=== PATIENT | female | born 1945 | race Hispanic/Latino ===

== ENCOUNTER 2017-10-07 16:50 | Inpatient (IN) | payer MEDICARE, BC ==
[2017-10-07 17:10] VITALS: BMI 24.9
--- NOTE | 2017-10-07 17:10 | ED PDOC ---
Arrival/HPI - General Chief Complaint: Weakness/Neurological Deficit Time Seen by Provider: 10/07/17 16:59 Historian: Patient - Critical Care Critical Care Minutes: 60 minutes - History of Present Illness Narrative History of Present Illness (Text): 10/07/17 17:08 A 72 year old female whose past medical history includes hypertension, SVT, hypercholesterolemia, hypothyroidism, DVT, and headaches, presents to the emergency department via EMS for a complaint of generalized weakness. Patient denies headache. Monitor shows sinus tachycardia at 156 beats per minute. Patient is alert and states that she is "thirsty". The patient denies headache, dizziness, sore throat, cough, chest pain, shortness of breath, dyspnea on exertion, abdominal pain, nausea, vomiting, diarrhea, neck/back pain, urinary/ bowel changes or any other complaint. PMD: Dr. Darnell Time/Duration: Prior to Arrival Symptom Onset: Sudden Symptom Course: Unchanged Activities at Onset: Rest, Light Context: Home Past Medical History - Provider Review Nursing Documentation Reviewed: Yes - Infectious Disease Hx of Infectious Diseases: None - Tetanus Immunization Tetanus Immunization: Up to Date - Cardiac Hx Cardiac Disorders: Yes Hx Hypertension: Yes - Pulmonary Hx Respiratory Disorders: Yes Hx Asthma: Yes - Neurological Hx Neurological Disorder: Yes (headaches) - HEENT Hx HEENT Disorder: Yes (WEARS RX GLASSES for reading) Hx Cataracts: Yes (left eye sx 01/31/16) - Renal Hx Renal Disorder: Yes Hx Pyelonephritis: (pt denies pyelonephritis) - Endocrine/Metabolic Hx Endocrine Disorders: Yes Hx Hypothyroidism: Yes - Hematological/Oncological Hx Blood Disorders: Yes (pt denies iron deficiency) Hx Anemia: (pt denies anemia) Hx Cancer: (pt denies any hx of cancer) Other/Comment: pt on ivig infusions with dr blandon once a month, iv immuniglobulin - Integumentary Hx Dermatological Disorder: No - Musculoskeletal/Rheumatological Hx Musculoskeletal Disorders: Yes Hx Falls: Yes (2 yrs ago slipped pelvic rim fx) - Gastrointestinal Hx Gastrointestinal Disorders: Yes (GERD,GASTRITIS,BOWEL OBSTRUCTION,H/O C DIFF. APPENDECTOMY,COLITIS) - Genitourinary/Gynecological Hx Genitourinary Disorders: No (PYELONEPHRITIS) Hx Reproductive Disorders: No - Psychiatric Hx Psychophysiologic Disorder: No Hx Substance Use: No Other/Comment: pt denies drinking - Surgical History Hx Appendectomy: Yes Hx Orthopedic Surgery: Yes (3 back surg) Other/Comment: PICC Line in and out - Anesthesia Hx Anesthesia: Yes Hx Anesthesia Reactions: No Hx Malignant Hyperthermia: No - Suicidal Assessment Feels Threatened In Home Enviroment: No Family/Social History - Physician Review Nursing Documentation Reviewed: Yes Family/Social History: No Known Family HX Smoking Status: Never Smoked Hx Alcohol Use: No Hx Substance Use: No Hx Substance Use Treatment: No Allergies/Home Meds Allergies/Adverse Reactions: Allergies ciprofloxacin Allergy (Verified 10/07/17 17:07) RASH esomeprazole Allergy (Verified 10/07/17 17:07) RASH tetracycline Allergy (Verified 10/07/17 17:07) RASH Home Medications: Home Meds Medication Instructions Recorded Confirmed Atenolol [Tenormin] 25 mg PO DAILY 05/25/15 07/16/17 Gabapentin [Neurontin] 600 mg PO BID 05/25/15 07/16/17 Levothyroxine Sodium [Synthroid] 25 mcg PO DAILY 05/25/15 07/16/17 Ondansetron [Zofran Odt] 4 mg PO Q8H PRN 05/25/15 07/16/17 Rosuvastatin Calcium [Crestor] 10 mg PO DAILY 05/25/15 07/16/17 Solifenacin Succinate [Vesicare] 2 tab PO DAILY 05/25/15 07/16/17 Topiramate [Topamax] 75 mg PO DAILY 05/25/15 07/16/17 diaZEpam [Valium] 5 mg PO PRN PRN 05/25/15 07/16/17 diltiaZEM [Cardizem] 120 mg PO DAILY 05/25/15 07/16/17 Famotidine [Pepcid] 20 mg PO DAILY PRN 06/13/15 07/16/17 oxyCODONE [oxyCODONE Immediate 10 mg PO QID PRN 06/04/16 07/16/17 Release Tab] oxyCODONE [oxyCONTIN Extended 60 mg PO BID 06/04/16 07/16/17 Release Tab] Zyrtec 1 tab PO PRN PRN 07/03/16 07/16/17 Fluticasone/Vilanterol [Breo 1 puff INH DAILY 12/19/16 07/16/17 Ellipta 100-25 Mcg INH] Lubiprostone [Amitiza] 8 mcg PO BID 12/19/16 07/16/17 Polyethylene Glycol 3350 [Miralax] 17 gm PO PRN PRN 12/19/16 07/16/17 Modafinil [Provigil] 400 mg PO DAILY 05/22/17 07/16/17 Furosemide [Lasix] 20 mg PO DAILY 07/16/17 07/16/17 Vancomycin HCl [Vancocin 125 MG 125 mg PO QID 07/16/17 07/16/17 Cap] levoFLOXacin [Levaquin] 500 mg PO DAILY 07/16/17 07/16/17 Review of Systems - Physician Review All systems were reviewed & negative as marked: Yes - Review of Systems Constitutional: Fatigue (Generalized Weakness), Fevers ENT: absent: Sore Throat Respiratory: absent: SOB, Cough Cardiovascular: absent: Chest Pain, MARQUES Gastrointestinal: absent: Abdominal Pain, Stool Changes, Diarrhea, Nausea, Vomiting Genitourinary Female: absent: Urine Output Changes Musculoskeletal: absent: Back Pain, Neck Pain Neurological: absent: Headache, Dizziness Physical Exam Vital Signs Reviewed: Yes Vital Signs Temp Pulse Resp BP Pulse Ox 10/07/17 20:40 190 H 10/07/17 19:08 99.2 F 10/07/17 18:56 140 H 18 123/85 95 10/07/17 17:01 102.9 F H 155 H 19 166/94 H 95 10/07/17 17:00 102.9 F H 155 H 19 166/94 H 95 Temperature: Afebrile Blood Pressure: Normal Pulse: Regular Respiratory Rate: Normal Appearance: Positive for: Non-Toxic, Other (Smell of urine on her body) Pain Distress: None Mental Status: Positive for: Alert and Oriented X 3, Lethargic - Systems Exam Head: Present: Atraumatic, Normocephalic Pupils: Present: PERRL Extroacular Muscles: Present: EOMI Conjunctiva: Present: Normal Mouth: Present: Dry Neck: Present: Normal Range of Motion Respiratory/Chest: Present: Clear to Auscultation, Good Air Exchange. No: Respiratory Distress, Accessory Muscle Use Cardiovascular: Present: Normal S1, S2, Tachycardic (Regular rhythm). No: Murmurs Abdomen: No: Tenderness, Distention, Peritoneal Signs Back: Present: Normal Inspection Upper Extremity: Present: Normal Inspection. No: Cyanosis, Edema Lower Extremity: Present: Normal Inspection. No: Edema Neurological: Present: GCS=15, CN II-XII Intact, Speech Normal Skin: Present: Warm, Dry, Normal Color. No: Rashes Psychiatric: Present: Alert, Oriented x 3, Normal Insight, Normal Concentration Medical Decision Making ED Course and Treatment: 10/07/17 17:12 Impression: A 72 year old female is brought into the emergency department via EMS for a complaint of generalized weakness. Plan: -- EKG -- Chest X-ray -- Labs -- Blood/ Urine Culture -- Urinalysis -- Tylenol -- Reassess and disposition Prior Visits: Notes and results from previous visits were reviewed. Progress Notes: 10/07/17 17:10: Code sepsis called. 10/07/17 19:[address] darnell. states that the patient has a hx of substance abuse/dependence and would like a drug screen. patient is known to not comply with outpt tx and it is possible that the patient is not taking her cardizem. patient does have a hx of VTE but is currentlyt not on anticoagulation. At this time, will extend workup to rule out PE in light of tachycardia and elevated troponin-patient does not complain of chest pain. 10/07/17 21:47 up to this point, patients heart rate suddenly accelerated to 180-200's (even after initial dose of cardizem). two doses of adenosine were given with only marginal response in heart rate. a second dose of cardizem was given and at this time, the patient's heart rate is n the 160's. patient screened to the ICU and accepted by dr. simon. It was agreed with DR. Simon to empirically anticoagulate patient in light of elevated troponin. Again, patient denies any chest pain/discomfort or SOB. 10/07/17 21:53: Case discussed in detail with Dr. Darnell who accepts patient to her service. Requests Dr. Kaba for cardiology consult. Call has been placed to discuss case with Dr. Kaba. 10/07/17 23:15 - Critical Care Critical Care Minutes: 60 minutes - Lab Interpretations Lab Results: 10/07/17 17:05 10/07/17 17:05 Lab Results 10/07/17 18:44: Urine Color Light yellow, Urine Appearance Clear, Urine pH 6.0, Ur Specific [place] 1.020, Urine Protein 100 H, Urine Glucose (UA) Negative, Urine Ketones Negative, Urine Blood Small H, Urine Nitrate Negative, Urine Bilirubin Negative, Urine Urobilinogen 0.2, Ur Leukocyte Esterase Moderate H, Urine RBC 2 - 5, Urine WBC Tntc, Ur Epithelial Cells 6 - 8, Urine Bacteria Many , Urine Other Utrans 10/07/17 17:05: PT 13.2 H, INR 1.15, APTT 27.0 10/07/17 17:05: Sodium 128 L, Chloride 90 L, Potassium 3.7, Carbon Dioxide 21, Anion Gap 20, BUN 39 H, Creatinine 1.1, Est GFR ( Amer) 59, Est GFR (Non- Af Amer) 49, Random Glucose 138 H, Calcium 9.1, Magnesium 2.1, Total Bilirubin 0.8, AST 58 H, ALT 34, Alkaline Phosphatase 102, Troponin I 1.33 H* D, Total Protein 7.6, Albumin 4.1, Globulin 3.5, Albumin/Globulin Ratio 1.1 10/07/17 17:05: pO2 32, VBG pH 7.44 H, VBG pCO2 33.0 L, VBG HCO3 22.4, VBG Total CO2 23.4, VBG O2 Sat (Calc) 67.8 H, VBG Base Excess -1.1 L, VBG Potassium 3.6, Sodium 127.0 L, Chloride 89.0 L, Glucose 140 H, Lactate 1.6, FiO2 21.0, Venous Blood Potassium 3.6 10/07/17 17:05: WBC 13.0 H D, RBC 4.74, Hgb 14.9, Hct 40.6, MCV 85.7, MCH 31.4, MCHC 36.7, RDW 13.6, Plt Count 200, MPV 9.2, Gran % 89.3 H, Lymph % (Auto) 3.8 L , [place] % (Auto) 6.9 H, Eos % (Auto) 0.0 L, Baso % (Auto) 0.0, Gran # 11.56 H, Lymph # (Auto) 0.5 L, [place] # (Auto) 0.9 H, Eos # (Auto) 0.0, Baso # (Auto) 0.00 , Neutrophils % (Manual) 83 H, Band Neutrophils % 6 H, Lymphocytes % (Manual) 7 L, Monocytes % (Manual) 2, Eosinophils % (Manual) 2, Platelet Evaluation Normal I have reviewed the lab results: Yes - RAD Interpretation Narrative RAD Interpretations (Text): Chest X-ray Dictator : Howard Johnson MD Report Date : 10/07/2017 17:34:01 IMPRESSION: No active disease. CT Angiography Chest With Intravenous Contrast Dictated and Authenticated by: Hunter Camacho MD 10/07/2017 9:25 PM Eastern Time ([place] & [place]) IMPRESSION: No main or central pulmonary pulmonary embolus. Beyond the hilar regions, peripheral pulmonary embolus not well evaluated/excluded secondary to excessive motion artifact. No significant contrast within thoracic aorta to evaluate/exclude dissection. Fusiform aneurysmal arch and ascending thoracic aorta, 4.1 cm diameter. Small pericardial effusion. Lumbar posterior fusion post surgical changes. Radiology Orders: 10/07/17 17:00 CHEST PORTABLE [RAD] Stat 10/07/17 19:52 ANGIO CHEST PE PROTOCOL [CT] Stat - EKG Interpretation EKG Interpretation (Text): 10/07/17 17:07 EKG: Ordered, reviewed, and independently interpreted the EKG. Rate : 156 BPM Rhythm : Sins Tachycardia Interpretation : Normal QRS. Incomplete RBBB. Non- specific lateral rate related ischemic changes. 10/07/17 1834 ekg #2 sinus tach at 151 bpm, nml qrs, nml axis, rate related inf lateral ekg change Interpreted by ED Physician: Yes Type: 12 lead EKG - Medication Orders Current Medication Orders: Acetaminophen (Tylenol 325mg Tab) 650 mg PO Q6H PRN PRN Reason: Fever >100.4 F Aspirin (Ecotrin) 81 mg PO DAILY TESSA Atorvastatin Calcium (Lipitor) 10 mg PO DIN TESSA Diazepam (Valium) 5 mg PO TID TESSA PRN Reason: Protocol Gabapentin (Neurontin) 600 mg PO BID TESSA PRN Reason: Protocol Sodium Chloride (Sodium Chloride 0.9%) 1,000 mls @ 150 mls/hr IV .Q6H40M TESSA Last Admin: 10/07/17 17:24 Dose: 150 mls/hr eMAR Start Stop Document 10/07/17 17:24 [facility] (Rec: 10/07/17 17:24 [facility] [id number]) Intravenous Solution Start Date 10/07/17 Start Time 17:24 Cefepime HCl (Maxipime 2gm) 2 gm in 100 mls @ 100 mls/hr IVPB Q12 TESSA PRN Reason: Protocol Stop: 10/13/17 10:01 Levothyroxine Sodium (Synthroid) 25 mcg PO DAILY TESSA Ondansetron HCl (Zofran Inj) 4 mg IVP Q6H PRN PRN Reason: Nausea/Vomiting Oxycodone HCl (Oxycodone Immediate Release Tab) 10 mg PO QID PRN PRN Reason: Pain, severe (8-10) Oxycodone HCl (Oxycontin Extended Release Tab) 60 mg PO BID TESSA Discontinued Medications Acetaminophen (Tylenol 325mg Tab) 650 mg PO STAT STA Stop: 10/07/17 17:02 Last Admin: 10/07/17 17:22 Dose: 650 mg Adenosine (Adenosine 6 Mg/2 Ml Inj) 12 mg IVP STAT STA Stop: 10/07/17 20:59 Adenosine (Adenosine 6 Mg/2 Ml Inj) 6 mg IVP STAT STA Stop: 10/07/17 21:00 Aspirin (Aspirin Supp) 300 mg RC STAT STA Stop: 10/07/17 21:47 Diltiazem HCl (Cardizem) 15 mg IVP STAT STA Stop: 10/07/17 19:27 Last Admin: 10/07/17 20:40 Dose: 15 mg IVP Administration Document 10/07/17 20:40 SS (Rec: 10/07/17 20:40 [place] [facility] [id number] Charges for Administration # of IVP Administrations 1 MAR Pulse and Blood Pressure Document 10/07/17 20:40 SS (Rec: 10/07/17 20:40 SS [facility] [place] [id number] Pulse Pulse Rate (60-90) 190 Diltiazem HCl (Cardizem) 25 mg IVP STAT STA Stop: 10/07/17 21:01 Cefepime HCl (Maxipime 2gm) 2 gm in 100 mls @ 100 mls/hr IVPB STAT STA PRN Reason: Protocol Stop: 10/07/17 18:31 Last Admin: 10/07/17 17:47 Dose: 100 mls/hr eMAR Start Stop Document 10/07/17 17:47 [facility] (Rec: 10/07/17 17:47 [facility] [id number] Intravenous Solution Start Date 10/07/17 Start Time 17:47 End Date 10/07/17 End time 18:48 Total Infusion Time 61 Lorazepam (Ativan) 1 mg IVP ONCE ONE PRN Reason: Protocol Stop: 10/07/17 22:34 - Scribe Statement The provider has reviewed the documentation as recorded by the Loganibe January Lopez Provider Scribe Attestation: All medical record entries made by the Scribe were at my direction and personally dictated by me. I have reviewed the chart and agree that the record accurately reflects my personal performance of the history, physical exam, medical decision making, and the department course for this patient. I have also personally directed, reviewed, and agree with the discharge instructions and disposition. Disposition/Present on Arrival - Present on Arrival Any Indicators Present on Arrival: No History of DVT/PE: No History of Uncontrolled Diabetes: No Urinary Catheter: No History of Decub. Ulcer: No History Surgical Site Infection Following: None - Disposition Have Diagnosis and Disposition been Completed?: Yes Diagnosis: Sepsis Disposition: HOSPITALIZED Disposition Time: 22:31 Patient Plan: Admission Patient Problems: Current Active Problems Problem Status Onset Sepsis Acute Condition: FAIR
[2017-10-07] MEDS: Sodium Chloride 0.9% 1,000 ML IV SCH (17:24)
[2017-10-07] MEDS ORDERED: Cefepime IV 2 gm in NS 2 GM/100 ML BAG IVPB STA (17:32)
--- NOTE | 2017-10-07 17:35 | RAD ---
Date of service: 10/07/2017 HISTORY: pneumonia COMPARISON: Chest radiograph dated 01/07/2017. FINDINGS: LUNGS: No active pulmonary disease. PLEURA: No significant pleural effusion identified, no pneumothorax apparent. CARDIOVASCULAR: Atherosclerotic aortic calcifications. Cardiomediastinal silhouette stably enlarged. OSSEOUS STRUCTURES: Unchanged. Partially imaged lumbar fusion hardware. VISUALIZED UPPER ABDOMEN: Normal. OTHER FINDINGS: None. IMPRESSION: No active disease.
[2017-10-07 17:38] LABS: VENOUS BLOOD GAS BASE EXCESS -1.1 mmol/L (0.0-2.0); VENOUS BLOOD GAS PO2 32 mm/Hg (30-55); VENOUS BLOOD PH 7.44 (7.32-7.43)
[2017-10-07 17:42] LABS: GRAN # 11.56 (1.4-6.5); GRAN % 89.3 % (50.0-68.0); HEMOGLOBIN 14.9 g/dL (12.0-16.0); LYMPH # 0.5 (1.2-3.4); LYMPH % 3.8 % (22.0-35.0); MEAN CELL VOLUME 85.7 fl (80.0-105.0); MEAN CORPUSCULAR HEMOGLOBIN 31.4 pg (25.0-35.0); MEAN CORPUSCULAR HGB CONC 36.7 g/dl (31.0-37.0); MEAN PLATELET VOLUME 9.2 fl (7.0-11.0); MONO # 0.9 (0.1-0.6); MONO % 6.9 % (1.0-6.0); PLATELET COUNT 200 10^3/uL (120.0-450.0); RBC 4.74 10^6/uL (3.5-6.1); RED CELL DISTRIBUTION WIDTH 13.6 % (11.5-14.5)
[2017-10-07 17:47] LABS: ALB/GLOB RATIO 1.1 (1.1-1.8); ALBUMIN 4.1 g/dL (3.0-4.8); CALCIUM 9.1 mg/dL (8.4-10.5)
[2017-10-07 17:49] LABS: INR 1.15; PROTHROMBIN TIME 13.2 SECONDS (9.4-12.5)
[2017-10-07 18:22] LABS: TROPONIN I 1.33 ng/mL
[2017-10-07 18:58] LABS: URINE BILIRUBIN NEGATIVE (NEGATIVE); URINE BLOOD SMALL (NEGATIVE); URINE GLUCOSE (UA) NEGATIVE (NEGATIVE); URINE LEUKOCYTE ESTERASE MODERATE Leu/uL (NEGATIVE); URINE PROTEIN 100 mg/dL (<30 mg/dL); URINE UROBILINOGEN 0.2 E.U./dL (<1 E.U./dL)
[2017-10-07 19:05] LABS: BAND 6 % (0-2); EOSINOPHIL 2 % (0.0-3.0); LYMPHOCYTE 7 % (22.0-35.0); MONOCYTE 2 % (1.0-6.0); NEUTROPHIL 83 % (50.0-70.0); PLATELET ESTIMATE NORMAL (NORMAL)
[2017-10-07 19:07] LABS: URINE APPEARANCE CLEAR (CLEAR); URINE COLOR LIGHT YELLOW (YELLOW)
[2017-10-07 19:33] LABS: URINE BACTERIA MANY (NEG); URINE WBC TNTC /hpf (0-6)
[2017-10-07] MEDS ORDERED: Iodixanol 320 MG/ML 100 ML BOTTLE IV ONE (19:58)
[2017-10-07 21:19] LABS: VENOUS BLOOD GAS BASE EXCESS -5.1 mmol/L (0.0-2.0); VENOUS BLOOD GAS PO2 125 mm/Hg (30-55); VENOUS BLOOD PH 7.39 (7.32-7.43)
--- NOTE | 2017-10-07 22:38 | PCM.SEPTIC ---
Sepsis Progress Note - Reassessment Type Date of Evaluation: 10/07/17 Time of Evaluation: 22:37 Reassessment Type: Non-invasive reassessment - Non Invasive Reassessment Were the most recent vital sign reviewed: Yes Vital Sign (Latest): Temp Pulse Resp BP Pulse Ox 99.2 F 190 H 18 123/85 95 10/07/17 19:08 10/07/17 20:40 10/07/17 18:56 10/07/17 18:56 10/07/17 18:56 Cardiovascular: Yes: Chest Non Tender, Tachycardia. No: Edema, Gallop, JVD, Friction Rub, Irregularly Irregular Respiratory: Yes: Normal Breath Sounds. No: Decreased Breath Sounds, Rales, Rhonchi, Stridor, Wheezing Capillary Refill: Normal (Less than 2 sec) Pulses: Normal Radial, Normal Dorsalis Pedis, Normal Posterior Tibialis Skin: Warm, Dry - Invasive Reassessment (complete 2 of 4) Was a Central Venous Pressure Measurement obtained within 6 Hours after the presentation of septic shock: No Was a central venous oxygen measurement obtained within 6 hours after the presentation of septic shock: No Was a bedside cardiovascular ultrasound performed within 6 hours after the presentation of septic shock: No Was a passive leg raise performed or was a fluid challenge performed within 6 hrs of the initial fluid bolus: No Fluid Challenge performed: No
--- NOTE | 2017-10-07 22:56 | HP ---
Copied To: Dell Darnell MD Attending MD: Dell Darnell MD HISTORY OF PRESENT ILLNESS: The patient is 72 years old, known to me from office practice. Came to emergency room after she felt very weak, dizzy, lightheaded, no energy to get out of bed, also having palpitation. She called the ambulance and who brought her to emergency room. She was found to have SVT. Upon arrival in the ER, her heart rate was 156. Denies any chest pain. Complained of feeling weak, dizzy, lightheaded. No history of fever or chills at home. Does complain of feeling thirsty. No history of nausea or vomiting. PAST MEDICAL HISTORY: Significant for, 1. Degenerative disk disease. 2. History of DVT in the past. 3. Hypogammaglobulinemia. 4. History of SVT in the past. 5. Hypertension. 6. Anxiety disorder. PAST SURGICAL HISTORY: Significant for, 1. Left eye cataract surgery. 2. History of diskectomy in the past. She has a history of hypogammaglobulinemia, so she gets IV gammaglobulin by Dr. Elizondo at least once a month. ALLERGIES: SHE IS ALLERGIC TO CIPRO, OMEPRAZOLE AND TETRACYCLINE. MEDICATIONS AT HOME: She is on, 1. OxyContin 60 mg twice a day. 2. Oxycodone 10 mg four times a day. 3. Cardizem 120 daily. 4. Valium 5 mg three times a day. 5. P.o. vancomycin for intermittent C. diff. 6. Topamax 75 mg for migraine headaches. 7. VESIcare for incontinence. 8. Crestor 10 mg daily for hyperlipidemia. 9. MiraLax for intermittent constipation. 10. Provigil was started by Dr. Madsen, but she quit lately. 11. Amitiza. 12. Levothyroxine. 13. Neurontin 600 twice a day. 14. Breo Ellipta. 15. Lasix 40 mg intermittently for leg swelling. 16. Atenolol 25 daily. SOCIAL HISTORY: She used to be a heavy smoker. Still actively smokes here and there. Socially drinks here and there. REVIEW OF SYSTEMS: Significant for generalized weakness. PHYSICAL EXAMINATION: GENERAL: She is awake, alert, oriented, communicative. VITAL SIGNS: She has temperature of 102.9, pulse 155, respirations 19, blood pressure 120/85. LUNGS: Bilateral fair airflow. No rhonchi or crackle. HEART: S1 and S2 audible. Tachycardic. ABDOMEN: Soft. Nontender. No rebound. No guarding. NEUROLOGICAL: She is awake and alert, able to move all extremity. LABORATORY EXAM: WBC 13, hemoglobin 14.9, hematocrit 40.6, platelet 200. PT 13.2, INR 1.15. Chemistry: Sodium 128, potassium 3.7, chloride 90, CO2 of 21, BUN 39, creatinine 1.1, blood sugar of 138. LFTs are within normal limit except AST 58. Troponin 1.33. Urinalysis shows moderate leukocyte and wbc's too numerous to count. CT angio is pending. X-ray chest: No active disease. ASSESSMENT: 1. The patient is febrile with tachycardia and leukocytosis. The source is probably urine. 2. Supraventricular tachycardia. 3. Hyponatremia. 4. Hypertension. 5. Chronic degenerative disk disease. 6. Positive troponin. It could be demand ischemia. The patient was given adenosine 2 doses in the ER with no significant relief. She has been started on Cardizem drip and being presented to ICU where she will be admitted. The patient has been given cefepime in the ER. I will follow up blood culture, urine culture and Cardiology consult by Dr. Kaba and Infectious Disease consult by Dr. Estrada has been requested. Dell Darnell MD
[2017-10-07] MEDS ORDERED: Heparin25000 units/250ml 1/2NS 25,000 UNITS/250 ML BAG IV SCH (23:15)
[2017-10-07 23:51] LABS: URINE BILIRUBIN NEGATIVE (NEGATIVE); URINE BLOOD MODERATE (NEGATIVE); URINE GLUCOSE (UA) NEGATIVE (NEGATIVE); URINE LEUKOCYTE ESTERASE LARGE Leu/uL (NEGATIVE); URINE PROTEIN 30 mg/dL (<30 mg/dL); URINE UROBILINOGEN 0.2 E.U./dL (<1 E.U./dL)
[2017-10-07 23:54] LABS: URINE APPEARANCE CLOUDY (CLEAR); URINE COLOR YELLOW (YELLOW)
[2017-10-08 00:14] LABS: URINE BACTERIA LARGE (NEG); URINE WBC TNTC /hpf (0-6)
--- NOTE | 2017-10-08 00:16 | CP.PCM.HP ---
History of Present Illness - History of Present Illness History of Present Illness: CC: Fever, generalized weakness Pt is a 72 yo F with pmhx of hypertension, SVT, hypercholesterolemia, hypothyroidism, DVT, and headaches who presented to the ED for generalized weakness. She states that this started about a day ago and that she has not been feeling herself. She was unable to give further hx due to pain and SOB. Pt admitted to SOB, palpitations, and abdominal pain. PMHx:Cdiff colitis, UTI, depression, chronic back pain, HLD,hypothyroidism, colon polyps, PUD, GERD, constipation, gastroparesis, HTN,IgG defiency, get infusion with Dr. Blandon, Asthma, Nueropathy PSHx: multiple back sx, repair of fx arm and toe, appendectomy EGD/colon 6 months ago Social: denies smoking, etoh, drugs Medications: Oxycodone ER 60mg BID, Oxycodone 10 immediate release 10mg QID PRN , diltiazem 120mg QD, valium 5mg, topomax 75mg QD, crestor 10mg QD, miralax, ondansetron 4mg PRN, modafinil 400mg QD, lubiprostone 8mcg BOD, Synthroid 25 mcg QD, Neurontin 600 BID, Lasix 20mg QD, Famotidine 20mg QD, Atenolol 25mg QD, fluticasone/vilanterol 1puff QD Allergies: OMEPRAZOLE,TETRACYCLINE,CIPRO - rash with all 3 Family Hx: pt denies Review of Systems - Constitutional Constitutional: Fever, Weakness. absent: Chills, Headache - Cardiovascular Cardiovascular: Palpitations. absent: Chest Pain, Chest Pain at Rest, Chest Pain with Activity, Pain Radiating to Arm/Neck/Jaw - Respiratory Respiratory: Dyspnea. absent: Cough, Hemoptysis, Dyspnea on Exertion, Pain on Inspiration - Gastrointestinal Gastrointestinal: Abdominal Pain. absent: Diarrhea, Fecal Incontinence, Hematochezia, Nausea, Vomiting - Genitourinary Genitourinary: Difficulty Urinating, Dysuria. absent: Hematuria, Urinary Incontinence, Urinary Frequency - Musculoskeletal Musculoskeletal: absent: Back Pain, Neck Pain, Numbness, Tingling - Neurological Neurological: absent: Dizziness Past Patient History - Infectious Disease Hx of Infectious Diseases: None - Tetanus Immunizations Tetanus Immunization: Up to Date - Past Social History Smoking Status: Never Smoked - CARDIAC Hx Cardiac Disorders: Yes Hx Hypertension: Yes - PULMONARY Hx Respiratory Disorders: Yes Hx Asthma: Yes - NEUROLOGICAL Hx Neurological Disorder: Yes (headaches) - HEENT Hx HEENT Problems: Yes (WEARS RX GLASSES for reading) Hx Cataracts: Yes (left eye sx 01/31/16) - RENAL Hx Chronic Kidney Disease: Yes Hx Pyelonephritis: (pt denies pyelonephritis) - ENDOCRINE/METABOLIC Hx Endocrine Disorders: Yes Hx Hypothyroidism: Yes - HEMATOLOGICAL/ONCOLOGICAL Hx Blood Disorders: Yes (pt denies iron deficiency) Hx Anemia: (pt denies anemia) Hx Cancer: (pt denies any hx of cancer) Other/Comment: pt on ivig infusions with dr blandon once a month, iv immuniglobulin - INTEGUMENTARY Hx Dermatological Problems: No - MUSCULOSKELETAL/RHEUMATOLOGICAL Hx Musculoskeletal Disorders: Yes Hx Falls: Yes (2 yrs ago slipped pelvic rim fx) - GASTROINTESTINAL Hx Gastrointestinal Disorders: Yes (GERD,GASTRITIS,BOWEL OBSTRUCTION,H/O C DIFF. APPENDECTOMY,COLITIS) - GENITOURINARY/GYNECOLOGICAL Hx Genitourinary Disorders: No (PYELONEPHRITIS) Hx Reproductive Disorders: No - PSYCHIATRIC Hx Psychophysiologic Disorder: No Hx Substance Use: No Other/Comment: pt denies drinking - SURGICAL HISTORY Hx Appendectomy: Yes Hx Orthopedic Surgery: Yes (3 back surg) Other/Comment: PICC Line in and out - ANESTHESIA Hx Anesthesia: Yes Hx Anesthesia Reactions: No Hx Malignant Hyperthermia: No Meds Allergies/Adverse Reactions: Allergies Allergy/AdvReac Type Severity Reaction Status Date / Time ciprofloxacin Allergy RASH Verified 10/07/17 17:07 esomeprazole Allergy RASH Verified 10/07/17 17:07 tetracycline Allergy RASH Verified 10/07/17 17:07 Physical Exam - Constitutional Appears: Toxic, In Acute Distress - Head Exam Head Exam: ATRAUMATIC, NORMAL INSPECTION, NORMOCEPHALIC - Eye Exam Eye Exam: EOMI, Normal appearance - ENT Exam ENT Exam: Mucous Membranes Dry - Neck Exam Neck exam: Positive for: Normal Inspection. Negative for: Meningismus - Respiratory Exam Respiratory Exam: Accessory Muscle Use, Clear to Auscultation Bilateral, NORMAL BREATHING PATTERN - Cardiovascular Exam Cardiovascular Exam: Tachycardia, +S1, +S2. absent: Gallop, Rubs, Systolic Murmur - GI/Abdominal Exam GI & Abdominal Exam: Normal Bowel Sounds, Soft, Tenderness (suprapubic tenderness). absent: Distended, Firm, Guarding - Neurological Exam Neurological exam: Alert, Oriented x3 - Psychiatric Exam Additional comments: distressed - Skin Skin Exam: Dry, Intact, Normal Color, Warm Results - Vital Signs Recent Vital Signs: Last Vital Signs Temp 102.4 F H 10/07/17 22:50 Pulse 189 H 10/07/17 21:00 Resp 18 10/07/17 18:56 BP 160/60 H 10/07/17 21:00 Pulse Ox 95 10/07/17 18:56 - Labs Result Diagrams: 10/07/17 17:05 10/07/17 17:05 Labs: Laboratory Results - last 24 hr 10/07/17 10/07/17 10/07/17 21:11 23:30 23:30 pO2 125 H VBG pH 7.39 VBG pCO2 31.0 L VBG HCO3 18.8 L VBG Total CO2 19.8 L VBG O2 Sat (Calc) 99.3 H VBG Base Excess -5.1 L VBG Potassium 3.6 Sodium 130.0 L Chloride 98.0 Glucose 126 H Lactate 3.2 H FiO2 21.0 Troponin I 1.63 H* D Venous Blood Potassium 3.6 Urine Color Yellow Urine Appearance Cloudy Urine pH 6.0 Ur Specific [place] 1.010 Urine Protein 30 H Urine Glucose (UA) Negative Urine Ketones Negative Urine Blood Moderate H Urine Nitrate Positive H Urine Bilirubin Negative Urine Urobilinogen 0.2 Ur Leukocyte Esterase Large H Assessment & Plan - Assessment and Plan (Free Text) Assessment: Pt is a 72 yo F with pmhx of HTN, SVT, HLD, hypothyroidism, DVT, and headaches, presents to the emergency department for a complaint of generalized weakness. She was noted to be septic in ED with HR in the 160's. Plan: 1) Sepsis 2/2 likely UTI vs opiate withdrawl - UA showed: LE - moderately +, Nitrates +, and WBC too numerous to count - Pt also exhibited supra pubic tenderness upon exam and admitted to dysuria - Cefepime 2g IVPB Q12 - NS @ 150 ml/hr - VBG panel showed lactate at 1.6, repeated to be 3.2 - f/u urine culture - f/u blood culture - f/u abd/pelvis CT 2) Persistent Tacycardia likely 2/2 sepsis vs 2/2 pain vs 2/2 increased sympathetics from distended bladder with hx of SVT is now resolving and is noted to be in 120s: - Pt continues to be tachycardic in 160's - Pt was given 2 doses of adenosine and cardizem 2x with no resolution to tachycardia - Trops are elevated to 1.6 likely 2/2 demand ischemia - Serial EKG x2 - Serial Trops x2 - Cardio consult 4) DVT Hx: - CT angio: f/u official read - Heparin 4K bolus with 25K units maintainance of 12units/kg/hr 5) Hypothyroidism: - Levothyroxine 25mcg 6) HTN: - hold due to sepsis 7) HLD: - Lipitor 10mg 8) Back pain: - Valium 5mg TID - Gabapentin 600 BID - Acetaminophen 650 Q6 PRN
[2017-10-08 01:04] LABS: VENOUS BLOOD GAS PO2 41 mm/Hg (30-55); VENOUS BLOOD PH 7.36 (7.32-7.43)
[2017-10-08] MEDS ORDERED: Potassium Chloride 20 mEq ER Tab PO STA (01:33)
--- NOTE | 2017-10-08 02:33 | CP.PCM.CON ---
<Anjana Wallace - Last Filed: 10/08/17 02:56> History of Present Illness - History of Present Illness History of Present Illness: CC: Fever, generalized weakness, Pt is a 72 yo F with pmhx of hypertension, SVT, hypercholesterolemia, hypothyroidism, DVT, and headaches who presented to the ED for generalized weakness. She states that this started about a day ago and that she has not been feeling herself. In ED pt was found to have a fever, tachycardic and noted to be septic likely 2/2 UTI as probably source. ICU was consulted due to persistent tacycardia depsite multiple boluses of cardizem and adenosine. She was unable to give further hx due to pain and SOB. Pt admitted to SOB, palpitations, and abdominal pain. PMHx:Cdiff colitis, UTI, depression, chronic back pain, HLD,hypothyroidism, colon polyps, PUD, GERD, constipation, gastroparesis, HTN,IgG defiency, get infusion with Dr. Elizondo, Asthma, Nueropathy PSHx: multiple back sx, repair of fx arm and toe, appendectomy EGD/colon 6 months ago Social: denies smoking, etoh, drugs Medications: Oxycodone ER 60mg BID, Oxycodone 10 immediate release 10mg QID PRN , diltiazem 120mg QD, valium 5mg, topomax 75mg QD, crestor 10mg QD, miralax, ondansetron 4mg PRN, modafinil 400mg QD, lubiprostone 8mcg BOD, Synthroid 25 mcg QD, Neurontin 600 BID, Lasix 20mg QD, Famotidine 20mg QD, Atenolol 25mg QD, fluticasone/vilanterol 1puff QD Allergies: OMEPRAZOLE,TETRACYCLINE,CIPRO - rash with all 3 Family Hx: pt denies Review of Systems - Constitutional Constitutional: Fever, Weakness. absent: Chills, Headache - Cardiovascular Cardiovascular: Palpitations. absent: Chest Pain, Chest Pain at Rest, Chest Pain with Activity, Pain Radiating to Arm/Neck/Jaw, Leg Edema - Respiratory Respiratory: Dyspnea. absent: Cough, Hemoptysis, Dyspnea on Exertion, Pain on Inspiration - Gastrointestinal Gastrointestinal: Abdominal Pain. absent: Diarrhea, Fecal Incontinence, Hematochezia, Melena, Nausea, Vomiting - Genitourinary Genitourinary: Difficulty Urinating, Dysuria, Bladder Distension. absent: Urinary Incontinence, Urinary Urgency - Musculoskeletal Musculoskeletal: absent: Back Pain, Neck Pain, Numbness, Tingling - Neurological Neurological: absent: Dizziness, Numbness, Tingling Past Patient History - Infectious Disease Hx of Infectious Diseases: None - Tetanus Immunizations Tetanus Immunization: Up to Date - Past Social History Smoking Status: Never Smoked - CARDIAC Hx Cardiac Disorders: Yes Hx Hypertension: Yes - PULMONARY Hx Respiratory Disorders: Yes Hx Asthma: Yes - NEUROLOGICAL Hx Neurological Disorder: Yes (headaches) - HEENT Hx HEENT Problems: Yes (WEARS RX GLASSES for reading) Hx Cataracts: Yes (left eye sx 01/31/16) - RENAL Hx Chronic Kidney Disease: Yes Hx Pyelonephritis: (pt denies pyelonephritis) - ENDOCRINE/METABOLIC Hx Endocrine Disorders: Yes Hx Hypothyroidism: Yes - HEMATOLOGICAL/ONCOLOGICAL Hx Blood Disorders: Yes (pt denies iron deficiency) Hx Anemia: (pt denies anemia) Hx Cancer: (pt denies any hx of cancer) Other/Comment: pt on ivig infusions with dr elizondo once a month, iv immuniglobulin - INTEGUMENTARY Hx Dermatological Problems: No - MUSCULOSKELETAL/RHEUMATOLOGICAL Hx Musculoskeletal Disorders: Yes Hx Falls: Yes (2 yrs ago slipped pelvic rim fx) - GASTROINTESTINAL Hx Gastrointestinal Disorders: Yes (GERD,GASTRITIS,BOWEL OBSTRUCTION,H/O C DIFF. APPENDECTOMY,COLITIS) - GENITOURINARY/GYNECOLOGICAL Hx Genitourinary Disorders: No (PYELONEPHRITIS) Hx Reproductive Disorders: No - PSYCHIATRIC Hx Psychophysiologic Disorder: No Hx Substance Use: No Other/Comment: pt denies drinking - SURGICAL HISTORY Hx Appendectomy: Yes Hx Orthopedic Surgery: Yes (3 back surg) Other/Comment: PICC Line in and out - ANESTHESIA Hx Anesthesia: Yes Hx Anesthesia Reactions: No Hx Malignant Hyperthermia: No Meds Allergies/Adverse Reactions: Allergies Allergy/AdvReac Type Severity Reaction Status Date / Time ciprofloxacin Allergy RASH Verified 10/07/17 17:07 esomeprazole Allergy RASH Verified 10/07/17 17:07 tetracycline Allergy RASH Verified 10/07/17 17:07 - Medications Medications: Current Medications Acetaminophen (Tylenol 325mg Tab) 650 mg PO Q6H PRN PRN Reason: Fever >100.4 F Aspirin (Ecotrin) 81 mg PO DAILY [facility] Atorvastatin Calcium (Lipitor) 10 mg PO DIN [facility] Diazepam (Valium) 5 mg PO TID [facility] PRN Reason: Protocol Gabapentin (Neurontin) 600 mg PO BID [facility] PRN Reason: Protocol Sodium Chloride (Sodium Chloride 0.9%) 1,000 mls @ 150 mls/hr IV .Q6H40M [facility] Last Admin: 10/07/17 17:24 Dose: 150 mls/hr Cefepime HCl (Maxipime 2gm) 2 gm in 100 mls @ 100 mls/hr IVPB Q12 [facility] PRN Reason: Protocol Stop: 10/13/17 10:01 Heparin Sodium/Sodium Chloride (Heparin 85667 Units/250ml 1/2 Normal Saline) 25 ,000 units in 250 mls @ 7.893 mls/hr IV .Q24H [facility]; 12 UNITS/KG/HR PRN Reason: Protocol Last Admin: 10/08/17 01:06 Dose: 12 units/kg/hr, 7.893 mls/hr Acetaminophen (Ofirmev) 1,000 mg in 100 mls @ 400 mls/hr IVPB Q6H PRN PRN Reason: Temperature Stop: 10/10/17 00:42 Potassium Chloride (Potassium Chloride 10 Meq/100 Ml) 10 meq in 100 mls @ 50 mls/hr IVPB Q2H [facility] Stop: 10/08/17 05:44 Metronidazole (Flagyl) 500 mg in 100 mls @ 100 mls/hr IVPB Q8H [facility] PRN Reason: Protocol Levothyroxine Sodium (Synthroid) 25 mcg PO DAILY [facility] Ondansetron HCl (Zofran Inj) 4 mg IVP Q6H PRN PRN Reason: Nausea/Vomiting Oxycodone HCl (Oxycodone Immediate Release Tab) 10 mg PO QID PRN PRN Reason: Pain, severe (8-10) Oxycodone HCl (Oxycontin Extended Release Tab) 60 mg PO BID [facility] Physical Exam - Constitutional Appears: Toxic, In Acute Distress - Head Exam Head Exam: ATRAUMATIC, NORMAL INSPECTION, NORMOCEPHALIC - Eye Exam Eye Exam: EOMI, Normal appearance Pupil Exam: NORMAL ACCOMODATION - ENT Exam ENT Exam: Mucous Membranes Dry - Neck Exam Neck exam: Positive for: Normal Inspection. Negative for: Meningismus - Respiratory Exam Respiratory Exam: Accessory Muscle Use, Clear to Auscultation Bilateral. absent : Rhonchi, Wheezes, Stridor - Cardiovascular Exam Cardiovascular Exam: Tachycardia, +S1, +S2. absent: Clicks, Gallop, Rubs - GI/Abdominal Exam GI & Abdominal Exam: Normal Bowel Sounds, Soft, Tenderness (suprapubic tenderness). absent: Distended, Firm, Guarding - Neurological Exam Neurological exam: Alert, Oriented x3 - Psychiatric Exam Additional comments: distressed - Skin Skin Exam: Dry, Intact, Normal Color, Warm Results - Vital Signs Recent Vital Signs: Last Vital Signs Temp 102.4 F H 10/07/17 23:40 Pulse 132 H 10/08/17 01:10 Resp 20 10/08/17 01:10 BP 124/67 10/07/17 23:50 Pulse Ox 94 L 10/08/17 01:10 - Labs Result Diagrams: 10/07/17 17:05 10/07/17 17:05 Labs: Laboratory Results - last 24 hr 10/07/17 10/07/17 10/07/17 21:11 23:30 23:30 pO2 125 H VBG pH 7.39 VBG pCO2 31.0 L VBG HCO3 18.8 L VBG Total CO2 19.8 L VBG O2 Sat (Calc) 99.3 H VBG Base Excess -5.1 L VBG Potassium 3.6 Sodium 130.0 L Chloride 98.0 Glucose 126 H Lactate 3.2 H FiO2 21.0 Troponin I 1.63 H* D Venous Blood Potassium 3.6 Urine Color Yellow Urine Appearance Cloudy Urine pH 6.0 Ur Specific [place] 1.010 Urine Protein 30 H Urine Glucose (UA) Negative Urine Ketones Negative Urine Blood Moderate H Urine Nitrate Positive H Urine Bilirubin Negative Urine Urobilinogen 0.2 Ur Leukocyte Esterase Large H Urine RBC 2 - 5 Urine WBC Tntc Ur Epithelial Cells 6 - 8 Urine Bacteria Large Urine Other Mucus 10/08/17 00:40 pO2 41 VBG pH 7.36 VBG pCO2 37.0 L VBG HCO3 20.9 L VBG Total CO2 22.0 VBG O2 Sat (Calc) 79.1 H VBG Base Excess -4.0 L VBG Potassium 2.2 L* Sodium 131.0 L Chloride 98.0 Glucose 110 H Lactate 2.2 H FiO2 21.0 Troponin I Venous Blood Potassium 2.2 L* Urine Color Urine Appearance Urine pH Ur Specific [place] Urine Protein Urine Glucose (UA) Urine Ketones Urine Blood Urine Nitrate Urine Bilirubin Urine Urobilinogen Ur Leukocyte Esterase Urine RBC Urine WBC Ur Epithelial Cells Urine Bacteria Urine Other Assessment & Plan - Assessment and Plan (Free Text) Assessment: Pt is a 72 yo F with pmhx of HTN, SVT, HLD, hypothyroidism, DVT, and headaches, presents to the emergency department for a complaint of generalized weakness. She was noted to be septic in ED with HR in the 160's. Plan: 1) Sepsis likely 2/2UTI - UA showed: LE - moderately +, Nitrates +, and WBC too numerous to count - Cefepime 2g IVPB Q12 - NS @ 150 ml/hr - VBG panel showed lactate at 1.6, repeated to be 3.2 - f/u urine culture - f/u blood culture - f/u abd/pelvis CT 2) Persistent Tachycardia sepsis vs pain vs increased sympathetics from distended bladder: - Pt was given 2 doses of adenosine and cardizem 2x with no resolution to tachycardia - CT Chest - Showed no PE - Watkins placed - removed 1100ccs of cloudy urine with improvement of HR - Cardio consulted 3) NSTEMI: - Trops are elevated to 1.33 then 1.6 f/u last trop - EKG - Showed sinus tachycardia HR 156 - Repeat EKG - Will emperically tx with heparin Bolus and drip - Cardio consult 4) Hyponatremia: - 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 Alfred Wallace PGY1 <Andre Simon P - Last Filed: 10/11/17 07:35> Meds - Medications Medications: Current Medications Acetaminophen (Tylenol 325mg Tab) 650 mg PO Q6H PRN PRN Reason: Fever >100.4 F Last Admin: 10/09/17 00:30 Dose: 650 mg Aspirin (Aspirin Chewable) 81 mg PO DAILY [facility] Last Admin: 10/10/17 09:37 Dose: 81 mg Atenolol (Tenormin) 25 mg PO BID [facility] Last Admin: 10/10/17 17:52 Dose: 25 mg Atorvastatin Calcium (Lipitor) 10 mg PO DIN [facility] Last Admin: 10/10/17 17:51 Dose: 10 mg Clopidogrel Bisulfate (Plavix) 75 mg PO DAILY [facility] Last Admin: 10/10/17 09:37 Dose: 75 mg Diazepam (Valium) 5 mg PO TID PRN; Protocol PRN Reason: Anxiety Enoxaparin Sodium (Lovenox) 60 mg SC DAILY [facility] PRN Reason: Protocol Last Admin: 10/10/17 12:45 Dose: 60 mg Famotidine (Pepcid) 40 mg PO HS [facility] Last Admin: 10/10/17 22:35 Dose: 40 mg Gabapentin (Neurontin) 600 mg PO BID [facility] PRN Reason: Protocol Last Admin: 10/08/17 04:09 Dose: Not Given Meropenem (Merrem Iv 1 Gm Premix) 50 mls @ 100 mls/hr IVPB Q8 [facility] PRN Reason: Protocol Last Admin: 10/11/17 06:12 Dose: 100 mls/hr Levothyroxine Sodium (Synthroid) 25 mcg PO DAILY [facility] Last Admin: 10/10/17 09:37 Dose: 25 mcg Ondansetron HCl (Zofran Inj) 4 mg IVP Q6H PRN PRN Reason: Nausea/Vomiting Last Admin: 10/11/17 00:11 Dose: 4 mg Oxycodone HCl (Oxycodone Immediate Release Tab) 10 mg PO QID PRN PRN Reason: Pain, severe (8-10) Last Admin: 10/10/17 02:33 Dose: 10 mg Oxycodone HCl (Oxycontin Extended Release Tab) 60 mg PO BID [facility] Potassium Phos/Sodium Phos (Neutra-Phos) 1 pkt PO BID [facility] Stop: 10/12/17 05:00 Last Admin: 10/10/17 17:54 Dose: 1 pkt Verapamil HCl (Verapamil Inj) 2.5 mg IVP Q6H PRN PRN Reason: for heart rate >130 Last Admin: 10/10/17 04:39 Dose: 2.5 mg Verapamil HCl (Calan Sr Tab) 180 mg PO DAILY [facility] Last Admin: 10/10/17 12:46 Dose: 180 mg Results - Vital Signs Recent Vital Signs: Last Vital Signs Temp 98.4 F 10/11/17 06:00 Pulse 86 10/11/17 06:00 Resp 19 10/11/17 06:00 BP 144/96 H 10/11/17 06:00 Pulse Ox 98 10/11/17 06:00 - Labs Result Diagrams: 10/10/17 07:20 10/10/17 07:20 Labs: Laboratory Results - last 24 hr 10/10/17 10/10/17 07:20 07:20 WBC 9.7 D RBC 3.48 L Hgb 10.7 L Hct 30.5 L MCV 87.6 MCH 30.7 MCHC 35.1 RDW 14.3 Plt Count 111 L MPV 9.5 Gran % 81.5 H Lymph % (Auto) 7.0 L [place] % (Auto) 11.1 H Eos % (Auto) 0.3 L Baso % (Auto) 0.1 Gran # 7.92 H Lymph # (Auto) 0.7 L [place] # (Auto) 1.1 H Eos # (Auto) 0.0 Baso # (Auto) 0.01 Sodium 132 Potassium 3.3 L Chloride 101 Carbon Dioxide 23 Anion Gap 12 BUN 17 Creatinine 0.6 L Est GFR ( Amer) > 60 Est GFR (Non-Af Amer) > 60 Random Glucose 94 Calcium 7.9 L Phosphorus 1.9 L Magnesium 1.7 Total Bilirubin 0.4 AST 28 ALT 34 Alkaline Phosphatase 64 Lactate Dehydrogenase 416 Total Creatine Kinase 39 Troponin I 0.17 H* D Total Protein 5.2 L Albumin 2.5 L Globulin 2.6 Albumin/Globulin Ratio 0.9 L Attending/Attestation - Attestation I have personally seen and examined this patient.: Yes I have fully participated in the care of the patient.: Yes I have reviewed all pertinent clinical information: Yes Notes (Text): 10/11/17 07:34 See note on the same day of admission
--- NOTE | 2017-10-08 02:43 | CP.PCM.PN ---
Subjective - Date & Time of Evaluation Date of Evaluation: 10/07/17 Time of Evaluation: 22:00 - Subjective Subjective: 72 f who has h/o chronic back pain with lumbar spinal fusion, on opiods, gabapentin, valium, on modafinil, h/o hyponatremia, h/o tachycardia on cardizem , presented to ER for 1 day of not feeling well, with some c/o dysruia, patient in ER noticed to be febrile 103F, HR in range of 140-190/min sinus on tele and on EKG not responding in ER with cardizem, adenosine, also hypertensive. As per the patient she had not missed her meds. Patient at time of her assessment was tired exhausted, new she was in hospital, how old she was but not the current month. Upon exam had tender distended lower abdomen, CTA done prior to my eval was negative for PE or pna, ascending aortic aneurysm noticed. Huff inserted in the ER gave about 1lit of urine right away, BP and HR improved after insertion of the huff. Troponin was also elevated. Abd ct artifacts noticed due to movement and lumbar hardware, but fluid filled large bowel also noted. Assessment Sepsis due to urinary retention Urinary retention multifactorial ie lumbar fusion, radiculopathy, poly pharmacy , colitis DD of colitis with fluid in the colon pending result of the CT NSTEMI likely demand ischemia rather unstable plaque heparin drip and asa started in ER Ascending aortic anerysm, will need f/u studies. Chronic back pain prone to opoid, bzd toxicity and withdrawal Plan Huff Flomax Cefepime and add flagyl suspecting colitis Stool w/u Continue heparin, asa, statin, will avoid betablocker till sepsis improves, patient in not ischemic pain, elevated hr currently from fever, echo will be ordered, cardiology consulted Dr Kaba Observe in ICU till sepsis improves, NSTEMI stabilized See orders for detail. Objective - Vital Signs/Intake and Output Vital Signs (last 24 hours): Temp Pulse Resp BP Pulse Ox 102.4 F H 132 H 20 124/67 94 L 10/07/17 23:40 10/08/17 01:10 10/08/17 01:10 10/07/17 23:50 10/08/17 01:10 Intake and Output: 10/07/17 10/08/17 18:59 06:59 Output Total 1100 Balance -1100 - Medications Medications: Current Medications Acetaminophen (Tylenol 325mg Tab) 650 mg PO Q6H PRN PRN Reason: Fever >100.4 F Aspirin (Ecotrin) 81 mg PO DAILY [facility] Atorvastatin Calcium (Lipitor) 10 mg PO DIN [facility] Diazepam (Valium) 5 mg PO TID [facility] PRN Reason: Protocol Gabapentin (Neurontin) 600 mg PO BID [facility] PRN Reason: Protocol Sodium Chloride (Sodium Chloride 0.9%) 1,000 mls @ 150 mls/hr IV .Q6H40M [facility] Last Admin: 10/07/17 17:24 Dose: 150 mls/hr Cefepime HCl (Maxipime 2gm) 2 gm in 100 mls @ 100 mls/hr IVPB Q12 [facility] PRN Reason: Protocol Stop: 10/13/17 10:01 Heparin Sodium/Sodium Chloride (Heparin 18708 Units/250ml 1/2 Normal Saline) 25 ,000 units in 250 mls @ 7.893 mls/hr IV .Q24H [facility]; 12 UNITS/KG/HR PRN Reason: Protocol Last Admin: 10/08/17 01:06 Dose: 12 units/kg/hr, 7.893 mls/hr Acetaminophen (Ofirmev) 1,000 mg in 100 mls @ 400 mls/hr IVPB Q6H [facility]N PRN Reason: Temperature Stop: 10/10/17 00:42 Potassium Chloride (Potassium Chloride 10 Meq/100 Ml) 10 meq in 100 mls @ 50 mls/hr IVPB Q2H [facility] Stop: 10/08/17 05:44 Metronidazole (Flagyl) 500 mg in 100 mls @ 100 mls/hr IVPB Q8H [facility] PRN Reason: Protocol Levothyroxine Sodium (Synthroid) 25 mcg PO DAILY [facility] Ondansetron HCl (Zofran Inj) 4 mg IVP Q6H PRN PRN Reason: Nausea/Vomiting Oxycodone HCl (Oxycodone Immediate Release Tab) 10 mg PO QID PRN PRN Reason: Pain, severe (8-10) Oxycodone HCl (Oxycontin Extended Release Tab) 60 mg PO BID [facility] - Labs Labs: PT 13.2 SECONDS (9.4-12.5) H 10/07/17 17:05 INR 1.15 10/07/17 17:05 APTT 27.0 Seconds (25.1-36.5) 10/07/17 17:05
[2017-10-08] MEDS ORDERED: Sodium Chloride 0.9% 1,000 ML IV STA ×2 (03:40→04:29)
[2017-10-08] MEDS: metroNIDAZOLE IV 500 mg/100 ml 500 MG/100 ML BAG IVPB SCH ×2 (03:50→09:34)
[2017-10-08 06:03] LABS: VENOUS BLOOD GAS BASE EXCESS -5.9 mmol/L (0.0-2.0); VENOUS BLOOD GAS PO2 125 mm/Hg (30-55); VENOUS BLOOD PH 7.36 (7.32-7.43)
[2017-10-08 06:11] LABS: BASO # 0.01 K/mm3 (0.0-2.0); BASO % 0.1 % (0.0-3.0); GRAN # 14.58 (1.4-6.5); GRAN % 89.8 % (50.0-68.0); LYMPH # 0.6 (1.2-3.4); LYMPH % 3.6 % (22.0-35.0); MEAN CELL VOLUME 86.8 fl (80.0-105.0); MEAN CORPUSCULAR HEMOGLOBIN 30.9 pg (25.0-35.0); MEAN CORPUSCULAR HGB CONC 35.6 g/dl (31.0-37.0); MEAN PLATELET VOLUME 9.2 fl (7.0-11.0); MONO # 1.1 (0.1-0.6); MONO % 6.5 % (1.0-6.0); RBC 3.17 10^6/uL (3.5-6.1); RED CELL DISTRIBUTION WIDTH 13.7 % (11.5-14.5)
[2017-10-08 06:28] LABS: ALB/GLOB RATIO 0.9 (1.1-1.8); ALBUMIN 2.1 g/dL (3.0-4.8); ALT/SGPT 32 U/L (7-56); AST/SGOT 32 U/L (14-36); BLOOD UREA NITROGEN 30 mg/dL (7-21); CALCIUM 6.8 mg/dL (8.4-10.5); GFR NON-AFRICAN AMERICAN > 60
[2017-10-08] MEDS: Sodium Chloride 0.9% 1,000 ML IV SCH (06:30)
[2017-10-08 06:48] LABS: HEMOGLOBIN 9.8 g/dL (12.0-16.0); WHITE BLOOD COUNT 16.2 10^3/ul (4.5-11.0)
--- NOTE | 2017-10-08 07:48 | CARD ---
APPROVED REPORT Date of service: 10/07/2017 EKG Measurement Heart [id number] <Conclusion> Rapid SVT, new STTW changes c/w ischemia Prolonged QTc
[2017-10-08] MEDS: Lactated Ringer's 1,000 ML IV SCH ×2 (08:15→18:01)
--- NOTE | 2017-10-08 08:46 | CP.PCM.CON ---
History of Present Illness - History of Present Illness History of Present Illness: PGY3 INFECTIOUS DISEASE CONSULT NOTE FOR DR. GUARDADO Past Patient History - Infectious Disease Hx of Infectious Diseases: None - Tetanus Immunizations Tetanus Immunization: Up to Date - Past Social History Smoking Status: Never Smoked - CARDIAC Hx Cardiac Disorders: Yes Hx Hypertension: Yes - PULMONARY Hx Respiratory Disorders: Yes Hx Asthma: Yes - NEUROLOGICAL Hx Neurological Disorder: Yes (headaches) - HEENT Hx HEENT Problems: Yes (WEARS RX GLASSES for reading) Hx Cataracts: Yes (left eye sx 01/31/16) - RENAL Hx Chronic Kidney Disease: Yes Hx Pyelonephritis: (pt denies pyelonephritis) - ENDOCRINE/METABOLIC Hx Endocrine Disorders: Yes Hx Hypothyroidism: Yes - HEMATOLOGICAL/ONCOLOGICAL Hx Blood Disorders: Yes (pt denies iron deficiency) Hx Anemia: (pt denies anemia) Hx Cancer: (pt denies any hx of cancer) Other/Comment: pt on ivig infusions with dr blandon once a month, iv immuniglobulin - INTEGUMENTARY Hx Dermatological Problems: No - MUSCULOSKELETAL/RHEUMATOLOGICAL Hx Musculoskeletal Disorders: Yes Hx Falls: Yes (2 yrs ago slipped pelvic rim fx) - GASTROINTESTINAL Hx Gastrointestinal Disorders: Yes (GERD,GASTRITIS,BOWEL OBSTRUCTION,H/O C DIFF. APPENDECTOMY,COLITIS) - GENITOURINARY/GYNECOLOGICAL Hx Genitourinary Disorders: No (PYELONEPHRITIS) Hx Reproductive Disorders: No - PSYCHIATRIC Hx Psychophysiologic Disorder: No Hx Substance Use: No Other/Comment: pt denies drinking - SURGICAL HISTORY Hx Appendectomy: Yes Hx Orthopedic Surgery: Yes (3 back surg) Other/Comment: PICC Line in and out - ANESTHESIA Hx Anesthesia: Yes Hx Anesthesia Reactions: No Hx Malignant Hyperthermia: No Meds Allergies/Adverse Reactions: Allergies Allergy/AdvReac Type Severity Reaction Status Date / Time ciprofloxacin Allergy RASH Verified 10/07/17 17:07 esomeprazole Allergy RASH Verified 10/07/17 17:07 tetracycline Allergy RASH Verified 10/07/17 17:07 - Medications Medications: Current Medications Acetaminophen (Tylenol 325mg Tab) 650 mg PO Q6H PRN PRN Reason: Fever >100.4 F Aspirin (Aspirin Chewable) 81 mg PO DAILY [facility] Atorvastatin Calcium (Lipitor) 10 mg PO DIN [facility] Last Admin: 10/08/17 04:09 Dose: Not Given Diazepam (Valium) 5 mg PO TID TESSA PRN Reason: Protocol Gabapentin (Neurontin) 600 mg PO BID TESSA PRN Reason: Protocol Last Admin: 10/08/17 04:09 Dose: Not Given Heparin Sodium/Sodium Chloride (Heparin 14332 Units/250ml 1/2 Normal Saline) 25 ,000 units in 250 mls @ 7.893 mls/hr IV .Q24H TESSA; 12 UNITS/KG/HR PRN Reason: Protocol Last Titration: 10/08/17 08:15 Dose: 0 units/kg/hr, 0 mls/hr Acetaminophen (Ofirmev) 1,000 mg in 100 mls @ 400 mls/hr IVPB Q6H PRN PRN Reason: Temperature Stop: 10/10/17 00:42 Last Admin: 10/08/17 03:45 Dose: 400 mls/hr Metronidazole (Flagyl) 500 mg in 100 mls @ 100 mls/hr IVPB Q8H TESSA PRN Reason: Protocol Last Admin: 10/08/17 03:50 Dose: 100 mls/hr Meropenem (Merrem Iv 1 Gm Premix) 50 mls @ 100 mls/hr IVPB Q12 TESSA PRN Reason: Protocol Potassium Chloride (Potassium Chloride 20 Meq/100 Ml) 20 meq in 100 mls @ 50 mls/hr IVPB Q2H [facility] Stop: 10/08/17 11:59 Last Admin: 10/08/17 08:27 Dose: 50 mls/hr Lactated Ringer's (Lactated Ringer's) 1,000 mls @ 150 mls/hr IV .Q6H40M [facility] Levothyroxine Sodium (Synthroid) 25 mcg PO DAILY [facility] Metoprolol Tartrate (Lopressor) 25 mg PO BID [facility] Ondansetron HCl (Zofran Inj) 4 mg IVP Q6H PRN PRN Reason: Nausea/Vomiting Oxycodone HCl (Oxycodone Immediate Release Tab) 10 mg PO QID PRN PRN Reason: Pain, severe (8-10) Oxycodone HCl (Oxycontin Extended Release Tab) 60 mg PO BID [facility] Potassium Chloride (K-Dur 20 Meq Er Tab) 40 meq PO Q2H [facility] Stop: 10/08/17 10:01 Results - Vital Signs Recent Vital Signs: Last Vital Signs Temp 97.3 F L 10/08/17 08:30 Pulse 113 H 10/08/17 08:30 Resp 30 H 10/08/17 08:30 BP 96/67 L 10/08/17 08:30 Pulse Ox 97 10/08/17 08:30 - Labs Result Diagrams: 10/08/17 05:40 10/08/17 05:40 Labs: Laboratory Results - last 24 hr 10/07/17 10/07/17 10/07/17 21:11 23:30 23:30 WBC RBC Hgb Hct MCV MCH MCHC RDW Plt Count MPV Gran % Lymph % (Auto) Bartholomew % (Auto) Eos % (Auto) Baso % (Auto) Gran # Lymph # (Auto) Bartholomew # (Auto) Eos # (Auto) Baso # (Auto) APTT pO2 125 H VBG pH 7.39 VBG pCO2 31.0 L VBG HCO3 18.8 L VBG Total CO2 19.8 L VBG O2 Sat (Calc) 99.3 H VBG Base Excess -5.1 L VBG Potassium 3.6 Sodium 130.0 L Chloride 98.0 Glucose 126 H Lactate 3.2 H FiO2 21.0 Potassium Carbon Dioxide Anion Gap BUN Creatinine Est GFR ( Amer) Est GFR (Non-Af Amer) Random Glucose Calcium Phosphorus Magnesium Total Bilirubin AST ALT Alkaline Phosphatase Troponin I 1.63 H* D Total Protein Albumin Globulin Albumin/Globulin Ratio Venous Blood Potassium 3.6 Urine Color Yellow Urine Appearance Cloudy Urine pH 6.0 Ur Specific [place] 1.010 Urine Protein 30 H Urine Glucose (UA) Negative Urine Ketones Negative Urine Blood Moderate H Urine Nitrate Positive H Urine Bilirubin Negative Urine Urobilinogen 0.2 Ur Leukocyte Esterase Large H Urine RBC 2 - 5 Urine WBC Tntc Ur Epithelial Cells 6 - 8 Urine Bacteria Large Urine Other Mucus 10/08/17 10/08/17 10/08/17 00:40 05:40 05:40 WBC 16.2 H D RBC 3.17 L Hgb 9.8 L D Hct 27.5 L MCV 86.8 MCH 30.9 MCHC 35.6 RDW 13.7 Plt Count 116 L MPV 9.2 Gran % 89.8 H Lymph % (Auto) 3.6 L Bartholomew % (Auto) 6.5 H Eos % (Auto) 0.0 L Baso % (Auto) 0.1 Gran # 14.58 H Lymph # (Auto) 0.6 L Bartholomew # (Auto) 1.1 H Eos # (Auto) 0.0 Baso # (Auto) 0.01 APTT pO2 41 125 H VBG pH 7.36 7.36 VBG pCO2 37.0 L 33.0 L VBG HCO3 20.9 L 18.6 L VBG Total CO2 22.0 19.6 L VBG O2 Sat (Calc) 79.1 H 99.8 H VBG Base Excess -4.0 L -5.9 L VBG Potassium 2.2 L* 2.8 L Sodium 131.0 L 132.0 Chloride 98.0 106.0 Glucose 110 H 112 H Lactate 2.2 H 0.9 FiO2 21.0 21.0 Potassium Carbon Dioxide Anion Gap BUN Creatinine Est GFR ( Amer) Est GFR (Non-Af Amer) Random Glucose Calcium Phosphorus Magnesium Total Bilirubin AST ALT Alkaline Phosphatase Troponin I Total Protein Albumin Globulin Albumin/Globulin Ratio Venous Blood Potassium 2.2 L* 2.8 L Urine Color Urine Appearance Urine pH Ur Specific [place] Urine Protein Urine Glucose (UA) Urine Ketones Urine Blood Urine Nitrate Urine Bilirubin Urine Urobilinogen Ur Leukocyte Esterase Urine RBC Urine WBC Ur Epithelial Cells Urine Bacteria Urine Other 10/08/17 10/08/17 05:40 07:30 WBC RBC Hgb Hct MCV MCH MCHC RDW Plt Count MPV Gran % Lymph % (Auto) Bartholomew % (Auto) Eos % (Auto) Baso % (Auto) Gran # Lymph # (Auto) Bartholomew # (Auto) Eos # (Auto) Baso # (Auto) APTT 157.0 H* pO2 VBG pH VBG pCO2 VBG HCO3 VBG Total CO2 VBG O2 Sat (Calc) VBG Base Excess VBG Potassium Sodium 133 Chloride 105 Glucose Lactate FiO2 Potassium 3.0 L Carbon Dioxide 18 L Anion Gap 13 BUN 30 H Creatinine 0.9 Est GFR ( Amer) > 60 Est GFR (Non-Af Amer) > 60 Random Glucose 107 Calcium 6.8 L* Phosphorus 2.7 Magnesium 1.7 Total Bilirubin 0.6 AST 32 ALT 32 Alkaline Phosphatase 55 Troponin I 1.10 H* D Total Protein 4.6 L Albumin 2.1 L Globulin 2.5 Albumin/Globulin Ratio 0.9 L Venous Blood Potassium Urine Color Urine Appearance Urine pH Ur Specific [place] Urine Protein Urine Glucose (UA) Urine Ketones Urine Blood Urine Nitrate Urine Bilirubin Urine Urobilinogen Ur Leukocyte Esterase Urine RBC Urine WBC Ur Epithelial Cells Urine Bacteria Urine Other
[2017-10-08] MEDS: Potassium Chloride 20 mEq ER Tab PO SCH ×2 (08:49→11:03)
--- NOTE | 2017-10-08 09:04 | CARD ---
APPROVED REPORT Date of service: 10/07/2017 EKG Measurement Heart [id number] <Conclusion> Atrial fibrillation with rapid ventricular response Nonspecific ST and T wave abnormality LAD Less ST depression V 5, 6 c/w earlier ECG
--- NOTE | 2017-10-08 09:20 | CT ---
Date of service: 10/07/2017 PROCEDURE: CT Chest with contrast (Pulmonary Angiogram) HISTORY: pulmonary embolism COMPARISON: None available. TECHNIQUE: Axial computed tomography images were obtained of the chest in the pulmonary arterial phase of enhancement. Coronal and sagittal reformatted images were created and reviewed. This CT exam was performed using one or more of the following dose reduction techniques: Automated exposure control, adjustment of the mA and/or kV according to patient size, and/or use of iterative reconstruction technique. Intravenous contrast dose: 100 cc of Visipaque 320 Radiation dose: Total exam DLP = 405 mGy-cm. FINDINGS: PULMONARY ARTERIES: Unremarkable. No pulmonary embolism. AORTA: There is dilatation of the ascending aorta measuring up to 4.4 cm in size. There is no evidence of dissection. There is minimal contrast material within the aorta. LUNGS: Unremarkable. No nodule, mass or pulmonary consolidation. PLEURAL SPACES: Unremarkable. No effusion or pneumothorax. HEART: Unremarkable. No cardiomegaly. No significant pericardial effusion. LYMPH NODES: No lymphadenopathy. There is mild dilatation of the esophagus BONES, CHEST WALL: Unremarkable. No fracture or destructive lesion OTHER FINDINGS: The report concurs with the preliminary [facility] report IMPRESSION: No evidence of pulmonary embolus. Dilatation of the ascending aorta
--- NOTE | 2017-10-08 09:20 | CARD ---
APPROVED REPORT Date of service: 10/08/2017 EKG Measurement Heart [id number] <Conclusion> Sinus tachycardia, new LAD Improved repolarization c/w ECG 10/07/17
[2017-10-08] MEDS: Levothyroxine 25 MCG TAB PO SCH (09:44)
[2017-10-08] MEDS ORDERED: Cefepime IV 2 gm in NS 2 GM/100 ML BAG IVPB SCH (10:00)
[2017-10-08] MEDS ORDERED: Meropenem IV 1 gm in NS 50 ML IVPB SCH ×2 (10:00→10:27)
[2017-10-08] MEDS ORDERED: oxyCODONE 20 mg ER Tab (oxyCONTIN) PO SCH (10:00)
--- NOTE | 2017-10-08 11:41 | CT ---
Date of service: 10/08/2017 PROCEDURE: CT HEAD WITHOUT CONTRAST. HISTORY: neck pain COMPARISON: 05/25/2015 TECHNIQUE: Axial computed tomography images were obtained through the head/brain without intravenous contrast. Radiation dose: Total exam DLP = 830 mGy-cm. This CT exam was performed using one or more of the following dose reduction techniques: Automated exposure control, adjustment of the mA and/or kV according to patient size, and/or use of iterative reconstruction technique. FINDINGS: HEMORRHAGE: No intracranial hemorrhage. BRAIN: No mass effect or edema. No atrophy or chronic microvascular ischemic changes. VENTRICLES: Unremarkable. No hydrocephalus. CALVARIUM: Unremarkable. PARANASAL SINUSES: Unremarkable as visualized. No significant inflammatory changes. MASTOID AIR CELLS: Unremarkable as visualized. No inflammatory changes. OTHER FINDINGS: None. IMPRESSION: No acute findings
--- NOTE | 2017-10-08 11:56 | CON ---
Copied To: Tyler Durham MD Attending MD: Tyler Durham MD DATE: 10/08/2017 HISTORY OF PRESENT ILLNESS: This is a 72-year-old lady with history of hypertension, hyperlipidemia, DVT, who presented with general weakness and initially was found hypotensive, hypothermic and having leukocytosis. She also reported to be thirsty. Her urinalysis showed large leukocyte esterase and preliminary diagnosis of severe sepsis secondary to UTI was placed and the patient was started on broad-spectrum antibiotics. Septic workup was done and fluid resuscitation was initiated. The patient's lactic acidosis resolved and blood pressure substantially improved. She has never been on vasopressors. Because the patient initially was a very tachycardic, concern for PE (in the setting of prior history of DVT) was raised and CAT scan of the chest with IV contrast was done which ruled out PE. Abdomen and pelvic CAT scan showed some urinary retention and Watkins catheter was placed with removal of more than a liter of urine. Of note, the patient's creatinine substantially improved from 1.1 to 0.9. PAST MEDICAL HISTORY: Hypertension, SVT, hypercholesterolemia, hypothyroidism, DVT. ALLERGIES: CIPROFLOXACIN, ESOMEPRAZOLE, TETRACYCLINE. SOCIAL HISTORY: No alcohol or illicit drug abuse. No tobacco smoking. FAMILY HISTORY: Noncontributory. MEDICATIONS AT HOME: Oxycodone, Valium, Crestor, Synthroid, Neurontin, levofloxacin, Cardizem, vancomycin, Topamax, Zofran, Provigil, Amitiza, Lasix, Breo Ellipta, Pepcid, atenolol. MEDICATIONS IN THE HOSPITAL: Include aspirin, Lipitor, Valium 5 mg p.o. t.i.d., Flagyl, heparin drip, Synthroid, cefepime, meropenem, normal saline 150 mL/hour. REVIEW OF SYSTEMS: Review of 12-organ system other than mentioned in history of present illness is negative. PHYSICAL EXAMINATION: VITAL SIGNS: Heart rate 107, temperature 97, blood pressure 104/69, oxygen saturation 99% on 2 liters nasal cannula. ENT: Head and neck atraumatic. LUNGS: Clear to auscultation bilaterally. HEART: Regular rate and rhythm. S1 and S2 normal. ABDOMEN: Soft, nontender, nondistended. MUSCULOSKELETAL: Trace bilateral pedal and ankle edema. SKIN: Moist. PSYCH: The patient is sleepy; however, easily arousable and when saw, alert and oriented x3. NEURO: The patient moves all extremities spontaneously. LABORATORY DATA: WBC 16.2, hemoglobin 9.8, platelet count 116. Sodium 133, potassium 3 (supplemented), chloride 105, carbon dioxide 18 (VBG at the same time showed pH 7.36 and lactic acid 0.9), calcium 6.8, albumin 2.1, AST 32, ALT 32, total bilirubin 0.6. Troponin 1.1 down from 1.63. Initial PTT 27. Repeated PTT is pending. Urine showed large leukocyte esterase and urine nitrites, large bacteria and wbc's are too numerous to be counted. Rbc's 2-5. ASSESSMENT AND PLAN: This is a 72-year-old lady who presented with severe sepsis secondary to urinary tract infection who is now fluid resuscitated with resolution of lactic acidosis and jehovah's witness relative hemodynamic stability (except for mild tachycardia). Bedside echocardiogram revealed grossly normal left ventricular systolic function. IVC more than 2.5 cm in diameter with less than 10% respiratory variation diameter. We will order formal echocardiogram to confirm above finding, however, I strongly suspect that troponin leak mostly relates to septic cardiomyopathy, in the setting of no chest pain, no EKG changes and absence of regional wall motion abnormalities. The patient does have history of deep venous thrombosis and I will touch base with primary medical doctor whether to continue heparin for that indication or not. Meanwhile, PTT is pending. I will start the patient on aspirin and beta-blockers as there are no data suggesting harm of these intervention in the setting of sepsis but may be potential benefits. I will continue with antibiotics. However, I will stop cefepime and we will continue with meropenem until Infectious Disease consultation is available. I will get procalcitonin. We are still pending blood culture and urine culture. The patient is a little bit lethargic, however, she is on Valium and some other psychotropic medication at home which may have prolonged action. I will stop that. She is clearly able to protect her airways. We will continue with gastrointestinal prophylaxis and maintain euvolemia, euglycemia, normothermia and oxygen saturation more than 90%. She appears to be okayed to be downgraded to telemetry at present time. Addendum: Spoke with PMD-->DVT was provoked-->switched TAC to heparin sc, continue bb and ASA. mental status improved, BP continues to be stable. Ok to downgrade to tele ccm time 40 min Tyler Durham MD LATOYA
--- NOTE | 2017-10-08 12:00 | CON ---
Copied To: Isac Estrada MD Attending MD: Isac Estrada MD DATE: 10/08/2017 LOCATION: The patient is seen in ICU earlier today in room 129, bed 1. CHIEF COMPLAINT: Weakness times several days. HISTORY OF PRESENT ILLNESS: This is a 72-year-old female with history of GERD, hypertension, hypothyroidism, high cholesterol, DVT, depression, anxiety, asthma, osteoporosis, pseudomembranous colitis, small bowel obstruction, migraine headaches, fibromyalgia, history of E. coli urinary tract infection, chronic back pain, history of IgG deficiency, on immunoglobulin. Admitted with weakness, found to have a temperature of 102 in the emergency room. Infectious Disease consultation requested. The patient is a poor historian, unable to communicate. This morning in the ICU, fevers have been reported. The patient did have an episode of hypotension, which responded to fluids. There has been no chest pain, shortness of breath or cough reported. No new headaches and it is unclear if she has any dysuria or frequency. REVIEW OF SYSTEMS: Twelve-point review of systems performed. PAST MEDICAL HISTORY: Significant for hypothyroidism, hypertension, high cholesterol, depression, anxiety, migraine headaches, fibromyalgia, chronic back pain, IgG deficiency, on immunoglobulin. The patient also had E. coli urinary tract infection. PAST SURGICAL HISTORY: Significant for laminectomy, appendectomy. ALLERGIES: THE PATIENT IS ALLERGIC TO CIPRO, ESOMEPRAZOLE, TETRACYCLINE. MEDICATIONS AT HOME: Include the patient to be on oxycodone, Valium, rosuvastatin, levothyroxine, gabapentin and the had been on Levaquin at some time in the past, it is not clearly when. The patient also on furosemide and Pepcid, atenolol. PHYSICAL EXAMINATION: GENERAL: On exam, the patient is in bed, appearing weak and toxic. VITAL SIGNS: Temperature is 102, respiratory rate of 30, blood pressure was systolic now of 67/40 and is up to 96 now with fluids and a heart rate of 113. The patient's BMI is 24 and O2 saturation at 97%. It was down to 91% earlier and on room air. HEENT: Examination of HEENT is unremarkable. NECK: Supple. LUNGS: Have decreased breath sounds. HEART: Normal S1 and S2. ABDOMEN: Soft, nontender. LABORATORY DATA: Laboratory examination reveals a white count of 13,000, hemoglobin of 14, platelets of 200, which is dropped down to 116 and today's white count has gone up to 16,000 with 89% polys. The patient did have 6% bandemia yesterday. Coagulation is noted and INR of 1.1. Chemistries reveals a BUN of 30, creatinine of 0.9. Troponin is elevated at 1.63 and 1.1. Urinalysis is significant of cloudy urine with large leukocyte esterase, too numerous to count wbc's, large bacteria and the presence of protein, moderate blood and positive nitrites. Microbiology reveals a gram-negative fabrice in the blood in both bottles. The patient had a CAT scan of the abdomen and pelvis with the results are pending. The patient also had a chest x-ray, which is reported to be negative. The emergency room chart is reviewed. The patient also had a CAT scan of the chest for PE protocol, which shows no evidence of pulmonary emboli. ASSESSMENT AND PLAN: A 72-year-old female, who was admitted with a fever, leukocytosis, tachycardia, dyspnea, hypotension and thrombocytopenia. #1 is severe sepsis with gram-negative fabrice bacteremia with urine as the source, doubt gastrointestinal as a source, although we will check on the CAT scan of the abdomen and pelvis. Check on the identification of gram-negative fabrice in the blood in a patient with a [id number] myocardial infarction and IgG deficiency and immunoglobulin and migraine headaches, depression, anxiety, high cholesterol, hypertension, hypothyroidism, history of deep venous thrombosis. We will start the patient on meropenem, pending initial workup results, culture results and the CAT scan results. We will follow with you. Isac Estrada MD
--- NOTE | 2017-10-08 12:26 | CT ---
Date of service: 10/08/2017 PROCEDURE: CT Abdomen and Pelvis without intravenous contrast HISTORY: sepsis COMPARISON: Abdomen and pelvis CT with contrast 12/18/2013. TECHNIQUE: Helical CT of the abdomen and pelvis was performed without oral or intravenous contrast as per referring physician request. Contrast dose: None Radiation dose: Total exam DLP = 743.33 MGy-cm. This CT exam was performed using one or more of the following dose reduction techniques: Automated exposure control, adjustment of the mA and/or kV according to patient size, and/or use of iterative reconstruction technique. FINDINGS: LOWER THORAX: Unremarkable. LIVER: Unremarkable. No gross lesion or ductal dilatation. GALLBLADDER AND BILE DUCTS: Unremarkable. PANCREAS: Unremarkable. No gross lesion or ductal dilatation. SPLEEN: Unremarkable. ADRENALS: Unremarkable. No mass. KIDNEYS AND URETERS: Striated nephrogram is appreciated with a stable small lucency at the upper pole right kidney and pattern suspicious for pyelonephritis with urosepsis possible diagnosis for this patient's history of sepsis. Clinically correlate further. Delayed contrast excretion left kidney from prior chest CT appears unremarkable overall. Urinary bladder is decompressed by Watkins catheter with thickness of the wall is difficult to evaluate. No suspicious focal nodularity however. VASCULATURE: Unremarkable. No aortic aneurysm. BOWEL: The stomach is distended with gas and retained fluid No obstruction grossly evident. Anastomosis is seen in the right lower quadrant may reflect ileocolic prior surgery. APPENDIX: Unremarkable. Normal appendix. PERITONEUM: Unremarkable. No free fluid. No free air. LYMPH NODES: Unremarkable. No enlarged lymph nodes. BLADDER: As above in renal section. REPRODUCTIVE: Unremarkable. BONES: Lengthy prior multilevel posterior spinal fusion hardware from L1-S1 reiterated. No hardware failure grossly appreciable. OTHER FINDINGS: None. . IMPRESSION: 1. Findings most compatible with right pyelonephritis. Consider potential urosepsis etiology of sepsis. Stable nonspecific upper pole right renal lucency. 2. No gross ascites or abscess in the abdomen or pelvis. Contrast limits evaluation of the gastrointestinal tract. Ileocolic anastomosis suggested right lower quadrant 3. Lengthy posterior lumbar spinal fusion stable in appearance overall. 4. Watkins catheter decompresses urinary bladder.
[2017-10-08 12:56] LABS: ARTERIAL BLOOD GAS HEMOGLOBIN 9.5 g/dL (11.7-17.4); ARTERIAL BLOOD GAS O2 CAPACITY 13.4 mL/dl (16-24); ARTERIAL BLOOD GAS O2 CONTENT 13.3 ML/dl (15-23); ARTERIAL BLOOD GAS O2 SAT 99.5 % (95-98); ARTERIAL BLOOD GAS PCO2 27 mm/Hg (35-45); ARTERIAL BLOOD GAS PH 7.38 (7.35-7.45); ARTERIAL BLOOD GAS TCO2 16.8 mmol.L (22-28)
--- NOTE | 2017-10-08 15:37 | CP.CCUPN ---
<Joaquín Luo - Last Filed: 10/08/17 15:28> CCU Subjective - Physician Review Subjective (Free Text): 10/08/17 15:28 Joaquín Luo DO PGY1 - Internal Medicine [place] [employer] [facility] - ICU Progress Note Patient was seen and evaluated at bedside this AM in ICU. No acute events reported overnight. Patient is only complaining of some neck pain this AM. Does not endorse neck stiffness or meningeal type symptoms such as headaches, photophobia, or focal weakness; however patient was altered this AM. CTA ordered to r/o meningitis. 12 system ROS is otherwise negative. CCU Objective - Vital Signs / Intake & Output Vital Signs (Last 4 hours): Vital Signs Pulse BP 10/08/17 14:52 91 H 113/75 10/08/17 12:37 97 H 112/73 Intake and Output (Last 8hrs): Intake & Output 10/08/17 10/08/17 10/08/17 06:59 14:59 22:59 Intake Total 424 Output Total 1300 800 Balance -1300 -376 Intake: IV 70 Oral 354 Output: Urine 1300 800 huff 1300 800 Stool 0 0 Emesis 0 - Physical Exam Head: Positive for: Atraumatic, Normocephalic Pupils: Positive for: PERRL Extroacular Muscles: Positive for: EOMI Conjunctiva: Positive for: Normal Mouth: Positive for: Dry Neck: Negative for: Meningeal Signs Respiratory/Chest: Positive for: Clear to Auscultation, Good Air Exchange. Negative for: Respiratory Distress, Accessory Muscle Use Cardiovascular: Positive for: Normal S1, S2, Tachycardic (Regular rhythm). Negative for: Murmurs Abdomen: Negative for: Tenderness, Distention, Peritoneal Signs Back: Positive for: Normal Inspection Upper Extremity: Positive for: Normal Inspection. Negative for: Cyanosis, Edema Lower Extremity: Positive for: Normal Inspection. Negative for: Edema Neurological: Positive for: GCS=15, Speech Normal, Other (Kernig's sign negative ; Patient did appeared altered/lethargic on exam this AM ) Skin: Positive for: Warm, Dry, Normal Color. Negative for: Rashes Psychiatric: Positive for: Alert, Oriented x 3, Normal Insight, Normal Concentration - Medications Active Medications: Active Medications Generic Name Dose Route Start Last Admin Trade Name Freq PRN Reason Stop Dose Admin Acetaminophen 650 mg 10/07/17 22:38 Tylenol 325mg Tab PO Q6H PRN Fever >100.4 F Aspirin 81 mg 10/08/17 10:00 10/08/17 09:44 Aspirin Chewable PO 81 mg DAILY [facility] Administration Atenolol 25 mg 10/08/17 18:00 Tenormin PO BID [facility] Atorvastatin Calcium 10 mg 10/07/17 22:45 10/08/17 04:09 Lipitor PO Not Given DIN [facility] Clopidogrel Bisulfate 75 mg 10/09/17 10:00 Plavix PO DAILY [facility] Diazepam 5 mg 10/08/17 10:00 Valium PO TID [facility] Protocol Famotidine 40 mg 10/08/17 22:00 Pepcid PO HS [facility] Gabapentin 600 mg 10/07/17 22:45 10/08/17 04:09 Neurontin PO Not Given BID [facility] Protocol Heparin Sodium (Porcine) 5,000 units 10/08/17 14:45 10/08/17 14:51 Heparin SC 5,000 units Q8 [facility] Administration Protocol Acetaminophen 1,000 mg in 100 mls @ 400 mls/hr 10/08/17 00:41 10/08/17 03:45 Ofirmev IVPB 10/10/17 00:42 400 mls/hr Q6H PRN Administration Temperature Lactated Ringer's 1,000 mls @ 150 mls/hr 10/08/17 08:15 Lactated Ringer's IV .[id number] [facility] Meropenem 50 mls @ 100 mls/hr 10/08/17 18:00 Merrem Iv 1 Gm Premix IVPB Q8 [facility] Protocol Levothyroxine Sodium 25 mcg 10/08/17 10:00 10/08/17 09:44 Synthroid PO 25 mcg DAILY [facility] Administration Ondansetron HCl 4 mg 10/07/17 22:38 Zofran Inj IVP Q6H PRN Nausea/Vomiting Oxycodone HCl 10 mg 10/07/17 22:33 Oxycodone Immediate Release Tab PO QID PRN Pain, severe (8-10) Oxycodone HCl 60 mg 10/08/17 10:00 Oxycontin Extended Release Tab PO BID [facility] Verapamil HCl 40 mg 10/08/17 14:00 10/08/17 14:52 Calan Tab PO 40 mg TID [facility] Administration Verapamil HCl 2.5 mg 10/08/17 11:51 Verapamil Inj IVP Q6H PRN for heart rate >130 - Patient Studies Lab Studies: Lab Studies 10/08/17 10/08/17 10/08/17 Range/Units 12:50 07:30 05:40 WBC (4.5-11.0) 10^3/ul RBC (3.5-6.1) 10^6/uL Hgb (12.0-16.0) g/dL Hct (36.0-48.0) % MCV (80.0-105.0) fl MCH (25.0-35.0) pg MCHC (31.0-37.0) g/dl RDW (11.5-14.5) % Plt Count (120.0-450.0) 10^3/uL MPV (7.0-11.0) fl Gran % (50.0-68.0) % Lymph % (Auto) (22.0-35.0) % [place] % (Auto) (1.0-6.0) % Eos % (Auto) (1.5-5.0) % Baso % (Auto) (0.0-3.0) % Gran # (1.4-6.5) Lymph # (Auto) (1.2-3.4) [place] # (Auto) (0.1-0.6) Eos # (Auto) (0.0-0.7) Baso # (Auto) (0.0-2.0) K/mm3 APTT 157.0 H* (25.1-36.5) Seconds pCO2 27 L (35-45) mm/Hg pO2 137.0 H (30-55) mm/Hg HCO3 16.0 L (21-28) mmol/L ABG pH 7.38 (7.35-7.45) ABG Total CO2 16.8 L (22-28) mmol.L ABG O2 Saturation 99.5 H (95-98) % ABG O2 Content 13.3 L (15-23) ML/dl ABG Base Excess -8.0 L (-2.0-3.0) mmol/L ABG Hemoglobin 9.5 L (11.7-17.4) g/dL ABG Carboxyhemoglobin 1.1 (0.5-1.5) % POC ABG HHb (Measured) 0.5 (0-5) % ABG Methemoglobin 1.0 (0.0-3.0) % ABG O2 Capacity 13.4 L (16-24) mL/dl VBG pH (7.32-7.43) VBG pCO2 (40-60) VBG HCO3 (21-28) mmol/l VBG Total CO2 (22-28) mmol.L VBG O2 Sat (Calc) (40-65) % VBG Base Excess (0.0-2.0) mmol/L VBG Potassium (3.6-5.2) mmol/L Hgb O2 Saturation 97.3 (95.0-98.0) % Sodium 133 (132-148) mmol/L Chloride 105 (98-107) mmol/L Glucose (65-105) mg/dl Lactate (0.7-2.1) mmol/L FiO2 32.0 % Potassium 3.0 L (3.6-5.0) mmol/L Carbon Dioxide 18 L (21-33) mmol/L Anion Gap 13 (10-20) BUN 30 H (7-21) mg/dL Creatinine 0.9 (0.7-1.2) mg/dl Est GFR ( Amer) > 60 Est GFR (Non-Af Amer) > 60 Random Glucose 107 (70-110) mg/dL Calcium 6.8 L* (8.4-10.5) mg/dL Phosphorus 2.7 (2.5-4.5) mg/dL Magnesium 1.7 (1.7-2.2) mg/dL Total Bilirubin 0.6 (0.2-1.3) mg/dL AST 32 (14-36) U/L ALT 32 (7-56) U/L Alkaline Phosphatase 55 (38-126) U/L Troponin I 1.10 H* D ng/mL Total Protein 4.6 L (5.8-8.3) g/dL Albumin 2.1 L (3.0-4.8) g/dL Globulin 2.5 gm/dL Albumin/Globulin Ratio 0.9 L (1.1-1.8) Venous Blood Potassium (3.6-5.2) mmol/L Urine Color (YELLOW) Urine Appearance (CLEAR) Urine pH (4.7-8.0) Ur Specific [place] (1.005-1.035) Urine Protein (<30 mg/dL) mg/dL Urine Glucose (UA) (NEGATIVE) mg/dL Urine Ketones (NEGATIVE) mg/dL Urine Blood (NEGATIVE) Urine Nitrate (NEGATIVE) Urine Bilirubin (NEGATIVE) Urine Urobilinogen (<1 E.U./dL) E.U./dL Ur Leukocyte Esterase (NEGATIVE) Elsa/uL Urine RBC (0-2) /hpf Urine WBC (0-6) /hpf Ur Epithelial Cells (0-5) /hpf Urine Bacteria (NEG) Urine Other 10/08/17 10/08/17 10/08/17 Range/Units 05:40 05:40 00:40 WBC 16.2 H D (4.5-11.0) 10^3/ul RBC 3.17 L (3.5-6.1) 10^6/uL Hgb 9.8 L D (12.0-16.0) g/dL Hct 27.5 L (36.0-48.0) % MCV 86.8 (80.0-105.0) fl MCH 30.9 (25.0-35.0) pg MCHC 35.6 (31.0-37.0) g/dl RDW 13.7 (11.5-14.5) % Plt Count 116 L (120.0-450.0) 10^3/uL MPV 9.2 (7.0-11.0) fl Gran % 89.8 H (50.0-68.0) % Lymph % (Auto) 3.6 L (22.0-35.0) % [place] % (Auto) 6.5 H (1.0-6.0) % Eos % (Auto) 0.0 L (1.5-5.0) % Baso % (Auto) 0.1 (0.0-3.0) % Gran # 14.58 H (1.4-6.5) Lymph # (Auto) 0.6 L (1.2-3.4) [place] # (Auto) 1.1 H (0.1-0.6) Eos # (Auto) 0.0 (0.0-0.7) Baso # (Auto) 0.01 (0.0-2.0) K/mm3 APTT (25.1-36.5) Seconds pCO2 (35-45) mm/Hg pO2 125 H 41 (30-55) mm/Hg HCO3 (21-28) mmol/L ABG pH (7.35-7.45) ABG Total CO2 (22-28) mmol.L ABG O2 Saturation (95-98) % ABG O2 Content (15-23) ML/dl ABG Base Excess (-2.0-3.0) mmol/L ABG Hemoglobin (11.7-17.4) g/dL ABG Carboxyhemoglobin (0.5-1.5) % POC ABG HHb (Measured) (0-5) % ABG Methemoglobin (0.0-3.0) % ABG O2 Capacity (16-24) mL/dl VBG pH 7.36 7.36 (7.32-7.43) VBG pCO2 33.0 L 37.0 L (40-60) VBG HCO3 18.6 L 20.9 L (21-28) mmol/l VBG Total CO2 19.6 L 22.0 (22-28) mmol.L VBG O2 Sat (Calc) 99.8 H 79.1 H (40-65) % VBG Base Excess -5.9 L -4.0 L (0.0-2.0) mmol/L VBG Potassium 2.8 L 2.2 L* (3.6-5.2) mmol/L Hgb O2 Saturation (95.0-98.0) % Sodium 132.0 131.0 L (132-148) mmol/L Chloride 106.0 98.0 (98-107) mmol/L Glucose 112 H 110 H (65-105) mg/dl Lactate 0.9 2.2 H (0.7-2.1) mmol/L FiO2 21.0 21.0 % Potassium (3.6-5.0) mmol/L Carbon Dioxide (21-33) mmol/L Anion Gap (10-20) BUN (7-21) mg/dL Creatinine (0.7-1.2) mg/dl Est GFR ( Amer) Est GFR (Non-Af Amer) Random Glucose (70-110) mg/dL Calcium (8.4-10.5) mg/dL Phosphorus (2.5-4.5) mg/dL Magnesium (1.7-2.2) mg/dL Total Bilirubin (0.2-1.3) mg/dL AST (14-36) U/L ALT (7-56) U/L Alkaline Phosphatase (38-126) U/L Troponin I ng/mL Total Protein (5.8-8.3) g/dL Albumin (3.0-4.8) g/dL Globulin gm/dL Albumin/Globulin Ratio (1.1-1.8) Venous Blood Potassium 2.8 L 2.2 L* (3.6-5.2) mmol/L Urine Color (YELLOW) Urine Appearance (CLEAR) Urine pH (4.7-8.0) Ur Specific [place] (1.005-1.035) Urine Protein (<30 mg/dL) mg/dL Urine Glucose (UA) (NEGATIVE) mg/dL Urine Ketones (NEGATIVE) mg/dL Urine Blood (NEGATIVE) Urine Nitrate (NEGATIVE) Urine Bilirubin (NEGATIVE) Urine Urobilinogen (<1 E.U./dL) E.U./dL Ur Leukocyte Esterase (NEGATIVE) Elsa/uL Urine RBC (0-2) /hpf Urine WBC (0-6) /hpf Ur Epithelial Cells (0-5) /hpf Urine Bacteria (NEG) Urine Other 10/07/17 10/07/17 10/07/17 Range/Units 23:30 23:30 21:11 WBC (4.5-11.0) 10^3/ul RBC (3.5-6.1) 10^6/uL Hgb (12.0-16.0) g/dL Hct (36.0-48.0) % MCV (80.0-105.0) fl MCH (25.0-35.0) pg MCHC (31.0-37.0) g/dl RDW (11.5-14.5) % Plt Count (120.0-450.0) 10^3/uL MPV (7.0-11.0) fl Gran % (50.0-68.0) % Lymph % (Auto) (22.0-35.0) % [place] % (Auto) (1.0-6.0) % Eos % (Auto) (1.5-5.0) % Baso % (Auto) (0.0-3.0) % Gran # (1.4-6.5) Lymph # (Auto) (1.2-3.4) [place] # (Auto) (0.1-0.6) Eos # (Auto) (0.0-0.7) Baso # (Auto) (0.0-2.0) K/mm3 APTT (25.1-36.5) Seconds pCO2 (35-45) mm/Hg pO2 125 H (30-55) mm/Hg HCO3 (21-28) mmol/L ABG pH (7.35-7.45) ABG Total CO2 (22-28) mmol.L ABG O2 Saturation (95-98) % ABG O2 Content (15-23) ML/dl ABG Base Excess (-2.0-3.0) mmol/L ABG Hemoglobin (11.7-17.4) g/dL ABG Carboxyhemoglobin (0.5-1.5) % POC ABG HHb (Measured) (0-5) % ABG Methemoglobin (0.0-3.0) % ABG O2 Capacity (16-24) mL/dl VBG pH 7.39 (7.32-7.43) VBG pCO2 31.0 L (40-60) VBG HCO3 18.8 L (21-28) mmol/l VBG Total CO2 19.8 L (22-28) mmol.L VBG O2 Sat (Calc) 99.3 H (40-65) % VBG Base Excess -5.1 L (0.0-2.0) mmol/L VBG Potassium 3.6 (3.6-5.2) mmol/L Hgb O2 Saturation (95.0-98.0) % Sodium 130.0 L (132-148) mmol/L Chloride 98.0 (98-107) mmol/L Glucose 126 H (65-105) mg/dl Lactate 3.2 H (0.7-2.1) mmol/L FiO2 21.0 % Potassium (3.6-5.0) mmol/L Carbon Dioxide (21-33) mmol/L Anion Gap (10-20) BUN (7-21) mg/dL Creatinine (0.7-1.2) mg/dl Est GFR ( Amer) Est GFR (Non-Af Amer) Random Glucose (70-110) mg/dL Calcium (8.4-10.5) mg/dL Phosphorus (2.5-4.5) mg/dL Magnesium (1.7-2.2) mg/dL Total Bilirubin (0.2-1.3) mg/dL AST (14-36) U/L ALT (7-56) U/L Alkaline Phosphatase (38-126) U/L Troponin I 1.63 H* D ng/mL Total Protein (5.8-8.3) g/dL Albumin (3.0-4.8) g/dL Globulin gm/dL Albumin/Globulin Ratio (1.1-1.8) Venous Blood Potassium 3.6 (3.6-5.2) mmol/L Urine Color Yellow (YELLOW) Urine Appearance Cloudy (CLEAR) Urine pH 6.0 (4.7-8.0) Ur Specific [place] 1.010 (1.005-1.035) Urine Protein 30 H (<30 mg/dL) mg/dL Urine Glucose (UA) Negative (NEGATIVE) mg/dL Urine Ketones Negative (NEGATIVE) mg/dL Urine Blood Moderate H (NEGATIVE) Urine Nitrate Positive H (NEGATIVE) Urine Bilirubin Negative (NEGATIVE) Urine Urobilinogen 0.2 (<1 E.U./dL) E.U./dL Ur Leukocyte Esterase Large H (NEGATIVE) Elsa/uL Urine RBC 2 - 5 (0-2) /hpf Urine WBC Tntc (0-6) /hpf Ur Epithelial Cells 6 - 8 (0-5) /hpf Urine Bacteria Large (NEG) Urine Other Mucus Laboratory Results - last 24 hr 10/07/17 10/07/17 10/07/17 21:11 23:30 23:30 WBC RBC Hgb Hct MCV MCH MCHC RDW Plt Count MPV Gran % Lymph % (Auto) [place] % (Auto) Eos % (Auto) Baso % (Auto) Gran # Lymph # (Auto) [place] # (Auto) Eos # (Auto) Baso # (Auto) APTT pCO2 pO2 125 H HCO3 ABG pH ABG Total CO2 ABG O2 Saturation ABG O2 Content ABG Base Excess ABG Hemoglobin ABG Carboxyhemoglobin POC ABG HHb (Measured) ABG Methemoglobin ABG O2 Capacity VBG pH 7.39 VBG pCO2 31.0 L VBG HCO3 18.8 L VBG Total CO2 19.8 L VBG O2 Sat (Calc) 99.3 H VBG Base Excess -5.1 L VBG Potassium 3.6 Hgb O2 Saturation Sodium 130.0 L Chloride 98.0 Glucose 126 H Lactate 3.2 H FiO2 21.0 Potassium Carbon Dioxide Anion Gap BUN Creatinine Est GFR ( Amer) Est GFR (Non-Af Amer) Random Glucose Calcium Phosphorus Magnesium Total Bilirubin AST ALT Alkaline Phosphatase Troponin I 1.63 H* D Total Protein Albumin Globulin Albumin/Globulin Ratio Venous Blood Potassium 3.6 Urine Color Yellow Urine Appearance Cloudy Urine pH 6.0 Ur Specific [place] 1.010 Urine Protein 30 H Urine Glucose (UA) Negative Urine Ketones Negative Urine Blood Moderate H Urine Nitrate Positive H Urine Bilirubin Negative Urine Urobilinogen 0.2 Ur Leukocyte Esterase Large H Urine RBC 2 - 5 Urine WBC Tntc Ur Epithelial Cells 6 - 8 Urine Bacteria Large Urine Other Mucus 10/08/17 10/08/17 10/08/17 00:40 05:40 05:40 WBC 16.2 H D RBC 3.17 L Hgb 9.8 L D Hct 27.5 L MCV 86.8 MCH 30.9 MCHC 35.6 RDW 13.7 Plt Count 116 L MPV 9.2 Gran % 89.8 H Lymph % (Auto) 3.6 L [place] % (Auto) 6.5 H Eos % (Auto) 0.0 L Baso % (Auto) 0.1 Gran # 14.58 H Lymph # (Auto) 0.6 L [place] # (Auto) 1.1 H Eos # (Auto) 0.0 Baso # (Auto) 0.01 APTT pCO2 pO2 41 125 H HCO3 ABG pH ABG Total CO2 ABG O2 Saturation ABG O2 Content ABG Base Excess ABG Hemoglobin ABG Carboxyhemoglobin POC ABG HHb (Measured) ABG Methemoglobin ABG O2 Capacity VBG pH 7.36 7.36 VBG pCO2 37.0 L 33.0 L VBG HCO3 20.9 L 18.6 L VBG Total CO2 22.0 19.6 L VBG O2 Sat (Calc) 79.1 H 99.8 H VBG Base Excess -4.0 L -5.9 L VBG Potassium 2.2 L* 2.8 L Hgb O2 Saturation Sodium 131.0 L 132.0 Chloride 98.0 106.0 Glucose 110 H 112 H Lactate 2.2 H 0.9 FiO2 21.0 21.0 Potassium Carbon Dioxide Anion Gap BUN Creatinine Est GFR ( Amer) Est GFR (Non-Af Amer) Random Glucose Calcium Phosphorus Magnesium Total Bilirubin AST ALT Alkaline Phosphatase Troponin I Total Protein Albumin Globulin Albumin/Globulin Ratio Venous Blood Potassium 2.2 L* 2.8 L Urine Color Urine Appearance Urine pH Ur Specific [place] Urine Protein Urine Glucose (UA) Urine Ketones Urine Blood Urine Nitrate Urine Bilirubin Urine Urobilinogen Ur Leukocyte Esterase Urine RBC Urine WBC Ur Epithelial Cells Urine Bacteria Urine Other 10/08/17 10/08/17 10/08/17 05:40 07:30 12:50 WBC RBC Hgb Hct MCV MCH MCHC RDW Plt Count MPV Gran % Lymph % (Auto) [place] % (Auto) Eos % (Auto) Baso % (Auto) Gran # Lymph # (Auto) [place] # (Auto) Eos # (Auto) Baso # (Auto) APTT 157.0 H* pCO2 27 L pO2 137.0 H HCO3 16.0 L ABG pH 7.38 ABG Total CO2 16.8 L ABG O2 Saturation 99.5 H ABG O2 Content 13.3 L ABG Base Excess -8.0 L ABG Hemoglobin 9.5 L ABG Carboxyhemoglobin 1.1 POC ABG HHb (Measured) 0.5 ABG Methemoglobin 1.0 ABG O2 Capacity 13.4 L VBG pH VBG pCO2 VBG HCO3 VBG Total CO2 VBG O2 Sat (Calc) VBG Base Excess VBG Potassium Hgb O2 Saturation 97.3 Sodium 133 Chloride 105 Glucose Lactate FiO2 32.0 Potassium 3.0 L Carbon Dioxide 18 L Anion Gap 13 BUN 30 H Creatinine 0.9 Est GFR ( Amer) > 60 Est GFR (Non-Af Amer) > 60 Random Glucose 107 Calcium 6.8 L* Phosphorus 2.7 Magnesium 1.7 Total Bilirubin 0.6 AST 32 ALT 32 Alkaline Phosphatase 55 Troponin I 1.10 H* D Total Protein 4.6 L Albumin 2.1 L Globulin 2.5 Albumin/Globulin Ratio 0.9 L Venous Blood Potassium Urine Color Urine Appearance Urine pH Ur Specific [place] Urine Protein Urine Glucose (UA) Urine Ketones Urine Blood Urine Nitrate Urine Bilirubin Urine Urobilinogen Ur Leukocyte Esterase Urine RBC Urine WBC Ur Epithelial Cells Urine Bacteria Urine Other EKG/Cardiology Studies: Cardiology / EKG Studies 10/07/17 22:16 ELECTROCARDIOGRAM Stat Comment: Reason For Exam: Persistent Tacycardia 10/07/17 23:00 ELECTROCARDIOGRAM Q6H Comment: Reason For Exam: persistent tachy 10/08/17 05:00 ELECTROCARDIOGRAM Q6H Comment: Reason For Exam: persistent tachy 10/08/17 11:47 EKG [ELECTROCARDIOGRAM] Stat Comment: Reason For Exam: SVT 10/09/17 07:00 ELECTROCARDIOGRAM Routine Comment: Reason For Exam: CAD PRE OP:: N Does Patient Have a Pacemaker?: No Review of Systems - Review of Systems Review of Systems: as per HPI Critical Care Progress Note - Nutrition Nutrition: Nutrition Category Date Time Status Heart Healthy Diet [DIET] Diets 10/07/17 Breakfast Active Assessment/Plan - Assessment and Plan (Free Text) Assessment: 72F w/ extensive PMH most significant for recurrent UTI presented to [facility] for c/ o weakness found to have urosepsis on presentation Neuro: -Slightly altered/ lethargic; most likely 2/2 infection -CT Head negative for acute pathology -Prevent sun downing; Reorient frequently -[id number] Cardiology: -Sinus tachy on presentation -Known Hx of SVT whenever patient has an infectious process -Elevated Troponins w/o any cardiac complaints; Most likely demand ischemia -Patient was on heparin drip empirically; however DC'd now due to etiology of troponins being less likely 2/2 NSTEMI -C/w verapamil 40 po TID -C/w Verapamil 2.5 IVP Q6H PRN HR >130 -C/w Atenolol 25 BID -C/w Plavix 75 -Cardiology following, appreciate reccs Pulmonology: -Maintain O2 Sat >95% -On 3L O2 NC -ABG - pH/PCO2/HCO3/PO2 - 7.38/27/16/137 -No respiratory distress noted -No PE or consolidation on CT Chest GI/Diet: -CTAP - no evidence of colitis -Heart healthy diet /Nephro -Dehydrated, however resolving: BUN/Cr = 30/0.9 vs -Hypokalemic; Repleted, Recheck in AM -UA+ for pyuria/ bacteuria -Huff in place -No complaints verbalized -CTAP - Pyelonephritis of R kidney -Abx as below ID: -Severe Sepsis on presentation -Afebrile since 439 this AM -Offirmev 1000 Q6 -Blood cx 2/2 growing GNR - sens pending -Urine Cx pending -Stool Cx pending -C/w Merem Q8 - Day 1 -Flagyl DC'd Endo: -C/w home levothyroxine GI PPX: Protonix DVT PPX: SC Heparin 5000 Q8 Patient was seen, examined, and discussed w/ attending physician Dr. Marva Luo DO PGY1 - Internal Medicine [place] [facility] - Pager [phone] - Date & Time Date: 10/08/17 Time: 16:21 <Tyler Durham - Last Filed: 10/10/17 16:13> CCU Objective - Vital Signs / Intake & Output Vital Signs (Last 4 hours): Vital Signs Pulse BP 10/10/17 14:00 91 H 10/10/17 12:46 99 H 130/79 Intake and Output (Last 8hrs): Intake & Output 10/10/17 10/10/17 10/10/17 06:59 14:59 22:59 Intake Total 300 Output Total 800 Balance -500 Weight 147 lb Intake: Oral 300 Output: Urine 800 huff 800 - Medications Active Medications: Active Medications Generic Name Dose Route Start Last Admin Trade Name Freq PRN Reason Stop Dose Admin Acetaminophen 650 mg 10/07/17 22:38 10/09/17 00:30 Tylenol 325mg Tab PO 650 mg Q6H PRN Administration Fever >100.4 F Aspirin 81 mg 10/08/17 10:00 10/10/17 09:37 Aspirin Chewable PO 81 mg DAILY [facility] Administration Atenolol 25 mg 10/08/17 18:00 10/10/17 09:37 Tenormin PO 25 mg BID [facility] Administration Atorvastatin Calcium 10 mg 10/07/17 22:45 10/09/17 17:28 Lipitor PO 10 mg DIN [facility] Administration Clopidogrel Bisulfate 75 mg 10/09/17 10:00 10/10/17 09:37 Plavix PO 75 mg DAILY [facility] Administration Diazepam 5 mg 10/09/17 18:35 Valium PO TID PRN Anxiety Protocol Enoxaparin Sodium 60 mg 10/10/17 12:15 10/10/17 12:45 Lovenox SC 60 mg DAILY [facility] Administration Protocol Famotidine 40 mg 10/08/17 22:00 10/09/17 22:16 Pepcid PO 40 mg HS [facility] Administration Gabapentin 600 mg 10/07/17 22:45 10/08/17 04:09 Neurontin PO Not Given BID [facility] Protocol Meropenem 50 mls @ 100 mls/hr 10/08/17 18:00 10/10/17 13:55 Merrem Iv 1 Gm Premix IVPB 100 mls/hr Q8 [facility] Administration Protocol Levothyroxine Sodium 25 mcg 10/08/17 10:00 10/10/17 09:37 Synthroid PO 25 mcg DAILY [facility] Administration Ondansetron HCl 4 mg 10/07/17 22:38 Zofran Inj IVP Q6H PRN Nausea/Vomiting Oxycodone HCl 10 mg 10/07/17 22:33 10/10/17 02:33 Oxycodone Immediate Release Tab PO 10 mg QID PRN Administration Pain, severe (8-10) Oxycodone HCl 60 mg 10/08/17 10:00 Oxycontin Extended Release Tab PO BID [facility] Potassium Phos/Sodium Phos 1 pkt 10/10/17 10:00 10/10/17 12:25 Neutra-Phos PO 10/12/17 05:00 1 pkt BID [facility]SA Administration Verapamil HCl 2.5 mg 10/08/17 11:51 10/10/17 04:39 Verapamil Inj IVP 2.5 mg Q6H PRN Administration for heart rate >130 Verapamil HCl 180 mg 10/10/17 12:15 10/10/17 12:46 Calan Sr Tab PO 180 mg DAILY [facility] Administration - Patient Studies Lab Studies: Microbiology Studies 10/07/17 23:30 Urine Culture - Final Urine Escherichia Coli 10/08/17 01:00 MRSA Culture (Admit) - Final Naris MRSA NOT DETECTED Lab Studies 10/10/17 10/10/17 Range/Units 07:20 07:20 WBC 9.7 D (4.5-11.0) 10^3/ul RBC 3.48 L (3.5-6.1) 10^6/uL Hgb 10.7 L (12.0-16.0) g/dL Hct 30.5 L (36.0-48.0) % MCV 87.6 (80.0-105.0) fl MCH 30.7 (25.0-35.0) pg MCHC 35.1 (31.0-37.0) g/dl RDW 14.3 (11.5-14.5) % Plt Count 111 L (120.0-450.0) 10^3/uL MPV 9.5 (7.0-11.0) fl Gran % 81.5 H (50.0-68.0) % Lymph % (Auto) 7.0 L (22.0-35.0) % [place] % (Auto) 11.1 H (1.0-6.0) % Eos % (Auto) 0.3 L (1.5-5.0) % Baso % (Auto) 0.1 (0.0-3.0) % Gran # 7.92 H (1.4-6.5) Lymph # (Auto) 0.7 L (1.2-3.4) [place] # (Auto) 1.1 H (0.1-0.6) Eos # (Auto) 0.0 (0.0-0.7) Baso # (Auto) 0.01 (0.0-2.0) K/mm3 Sodium 132 (132-148) mmol/L Potassium 3.3 L (3.6-5.0) mmol/L Chloride 101 (98-107) mmol/L Carbon Dioxide 23 (21-33) mmol/L Anion Gap 12 (10-20) BUN 17 (7-21) mg/dL Creatinine 0.6 L (0.7-1.2) mg/dl Est GFR ( Amer) > 60 Est GFR (Non-Af Amer) > 60 Random Glucose 94 (70-110) mg/dL Calcium 7.9 L (8.4-10.5) mg/dL Phosphorus 1.9 L (2.5-4.5) mg/dL Magnesium 1.7 (1.7-2.2) mg/dL Total Bilirubin 0.4 (0.2-1.3) mg/dL AST 28 (14-36) U/L ALT 34 (7-56) U/L Alkaline Phosphatase 64 (38-126) U/L Lactate Dehydrogenase 416 (333-699) U/L Total Creatine Kinase 39 (35-230) U/L Troponin I 0.17 H* D ng/mL Total Protein 5.2 L (5.8-8.3) g/dL Albumin 2.5 L (3.0-4.8) g/dL Globulin 2.6 gm/dL Albumin/Globulin Ratio 0.9 L (1.1-1.8) Laboratory Results - last 24 hr 10/10/17 10/10/17 07:20 07:20 WBC 9.7 D RBC 3.48 L Hgb 10.7 L Hct 30.5 L MCV 87.6 MCH 30.7 MCHC 35.1 RDW 14.3 Plt Count 111 L MPV 9.5 Gran % 81.5 H Lymph % (Auto) 7.0 L [place] % (Auto) 11.1 H Eos % (Auto) 0.3 L Baso % (Auto) 0.1 Gran # 7.92 H Lymph # (Auto) 0.7 L [place] # (Auto) 1.1 H Eos # (Auto) 0.0 Baso # (Auto) 0.01 Sodium 132 Potassium 3.3 L Chloride 101 Carbon Dioxide 23 Anion Gap 12 BUN 17 Creatinine 0.6 L Est GFR ( Amer) > 60 Est GFR (Non-Af Amer) > 60 Random Glucose 94 Calcium 7.9 L Phosphorus 1.9 L Magnesium 1.7 Total Bilirubin 0.4 AST 28 ALT 34 Alkaline Phosphatase 64 Lactate Dehydrogenase 416 Total Creatine Kinase 39 Troponin I 0.17 H* D Total Protein 5.2 L Albumin 2.5 L Globulin 2.6 Albumin/Globulin Ratio 0.9 L Critical Care Progress Note - Nutrition Nutrition: Nutrition Category Date Time Status Heart Healthy Diet [DIET] Diets 10/07/17 Breakfast Active Attending/Attestation - Attestation I have personally seen and examined this patient.: Yes I have fully participated in the care of the patient.: Yes I have reviewed all pertinent clinical information: Yes Notes (Text): 10/10/17 16:[address] Durham note
[2017-10-08] MEDS: Meropenem IV 1 gm in NS 50 ML IVPB SCH ×2 (17:00→21:07)
[2017-10-08] MEDS: oxyCODONE 10 mg Immediate Release Tab PO PRN (17:09)
--- NOTE | 2017-10-08 23:15 | CON ---
Copied To: Omar Kaba MD Attending MD: Omar Kaba MD DATE: 10/08/2017 CARDIAC EVALUATION CHIEF COMPLAINT: Positive troponin, rule out non-ST segment myocardial infarction, admitted with SVT and sepsis. BRIEF CLINICAL HISTORY: This is a 72-year-old female with a past medical history significant for degenerative joint disease, history of DVT in the past, history of hypogammaglobulinemia, history of SVT, history of on Eliquis at home, hypertension, anxiety disorder. He was not feeling good and feeling very weak, lethargic, came to the emergency room and found to be heart rate 150, possibly atrial flutter, SVT/multifocal atrial tachycardia, also temperature with 100. Patient was given IV Tylenol. Denies any chest pain, shortness of breath, or any palpitation. Troponin turned out to be positive. Admitting temperature 103, rectal; heart rate 155; blood pressure 166/94. PAST MEDICAL HISTORY: Significant for hypogammaglobulinemia, on IV gammaglobulin, being followed by Dr. Elizondo (Foundation Coordinator), get IV gammaglobulin every month; history of DVT, was on Eliquis at one point; history of SVT; history of hypertension; anxiety disorder; and degenerative joint disease. History of SVT as I mentioned in the past and previously patient was seen by me on 11/16/2013. PREVIOUS CARDIAC WORKUP: As follows: Patient had history of APCs, SVT in the past. Last echo in 10/2013 shows normal chamber size, ejection fraction of 65%-70%, trace mitral regurgitation, trace tricuspid regurgitation, trace aortic regurgitation, trace pulmonary insufficiency and patient had stress test done in 09/04/2013 at [facility] and [place] thallium was done, negative for ischemia and echo shows ejection fraction of 65% at [facility] dated 09/04/2013. There was an echo here in 10/2013 as mentioned above. There is a history of previous cardiac workup. History of C. diff colitis in the past. History of hypokalemia profound secondary to diarrhea in the past. SOCIAL HISTORY: Denies any history of alcohol abuse. PAST SURGICAL HISTORY: Significant for left eye cataract surgery, history of diskectomy in the past, history of hypogammaglobulinemia as mentioned above. PHYSICAL EXAMINATION: VITAL SIGNS: On admitting, temperature 103, heart rate 150, blood pressure . Now the temperature is afebrile, heart rate 98, blood pressure 103/67. HEENT: PERRLA. Extraocular muscles intact. NECK: Supple. No carotid bruits or thyromegaly. CHEST: Clear to auscultation. HEART: S1 and S2, regular. ABDOMEN: Soft. EXTREMITIES: Clubbing and cyanosis, negative. LABORATORY DATA: Blood workup, WBC 16.2, hemoglobin 9.2, hematocrit 27.5, platelet count 116. Chemistry showed sodium 133, potassium 3, chloride 105, carbon dioxide 18, anion gap of 13, BUN 30, creatinine 0.9. Troponin admitting 1.33, repeat 1.66, now the troponin is 1.60. EKG admitting shows heart rate of 155, SVT, possibly multifocal atrial tachycardia. Repeat EKG 10/07/2014 appears A-Fib. EKG yesterday morning looks like sinus tachycardia. CURRENT MEDICATIONS: At home, patient was taking oxycodone, Valium, Crestor, levothyroxine, levofloxacin, Cardizem 120 mg daily, Provigil, atenolol 25 p.o. daily. IMPRESSION: A 72-year-old female with a past medical history significant for supraventricular tachycardia, history of deep venous thrombosis, pulmonary embolism, on Eliquis at one point, off Eliquis, admitted yesterday with lethargic, found to be supraventricular tachycardia, heart rate 150, as well as fever. Blood cultures growing gram-negative rods, probably gram-negative sepsis, possibly non-ST segment myocardial infarction, positive troponin could be secondary to underlying coronary artery disease as well as secondary to hemodynamic instability, cannot rule out definitely underlying ischemia, but patient had supraventricular tachycardia. RECOMMENDATIONS: Start heparin, broad-spectrum antibiotic, treat as a non-STEMI, beta-josefina controlled with verapamil. Once the patient is medically stable and cleared from sepsis, consider cardiac catheterization versus noninvasive workup, most likely cardiac catheterization would be preferably for definite coronary anatomy. Interim, we will treat aggressively medically with broad-spectrum antibiotic, beta-josefina and verapamil, aspirin as well as we will add Plavix. We will follow with you. We will get echo to assess LV function. We will also get lipid profile, TSH, hemoglobin A1c. Aggressively supplement potassium. Thank you, Dr. Darnell, for providing us opportunity in taking care of the patient, Yadiel Haji. Omar Kaba MD
--- NOTE | 2017-10-09 | PN ---
Copied To: Dell Darnell MD Attending MD: Dell Darnell MD DATE: 10/08/2017 SUBJECTIVE: The patient is 72 years old, seen and examined, seems to be confused, lethargic, answering questions seems to be appropriate. PHYSICAL EXAMINATION: VITAL SIGNS: She is afebrile, pulse 93, respirations 21, blood pressure 132/81. LUNGS: Bilateral fair airflow. No rhonchi or crackle. HEART: S1 and S2, audible. ABDOMEN: Soft, nontender. No rebound, no guarding. NEUROLOGICALLY: She is lethargic, open eyes on verbal command. EXTREMITIES: Bilateral leg, no edema. LABORATORY EXAMINATION: WBC 16.2, hemoglobin 9.8, hematocrit 27.5, platelet 116. PT is 90.7. Chemistry, sodium 133, potassium 3, chloride 105, CO2 18, BUN 30, creatinine 0.9, blood sugar of 107. Troponin is 1.10. Her urine and blood shows gram-negative rods. ASSESSMENT: 1. Urosepsis. 2. Septic shock. 3. Supraventricular tachycardia. 4. Hyponatremia. 5. Hypertension. 6. Hypothyroidism. PLAN: Currently, the patient is on aspirin. She is on verapamil. She is on deep venous thrombosis prophylaxis. We will continue on IV fluids. She is on Lipitor and meropenem. Discussed with Dr. Kaba. Once the patient's sepsis resolved, they will plan for cardiac cath. Dell Darnell MD
[2017-10-09] MEDS: oxyCODONE 10 mg Immediate Release Tab PO PRN ×3 (00:32→22:22)
[2017-10-09] MEDS: Meropenem IV 1 gm in NS 50 ML IVPB SCH ×3 (05:25→22:15)
[2017-10-09] MEDS: Lactated Ringer's 1,000 ML IV SCH (05:32)
[2017-10-09 06:55] LABS: ALB/GLOB RATIO 0.9 (1.1-1.8); ALBUMIN 2.2 g/dL (3.0-4.8); ALT/SGPT 31 U/L (7-56); AST/SGOT 38 U/L (14-36); BLOOD UREA NITROGEN 23 mg/dL (7-21); CALCIUM 7.8 mg/dL (8.4-10.5); GFR NON-AFRICAN AMERICAN > 60; HDL CHOLESTEROL 25 mg/dL (29-60)
[2017-10-09 07:07] LABS: LDL CHOLESTEROL 32 mg/dL (0-129)
[2017-10-09 07:11] LABS: EOS % 0.1 % (1.5-5.0); GRAN # 11.89 (1.4-6.5); HEMOGLOBIN 9.8 g/dL (12.0-16.0); LYMPH # 0.6 (1.2-3.4); MEAN CELL VOLUME 87.4 fl (80.0-105.0); MEAN CORPUSCULAR HEMOGLOBIN 30.9 pg (25.0-35.0); MEAN CORPUSCULAR HGB CONC 35.4 g/dl (31.0-37.0); MEAN PLATELET VOLUME 9.7 fl (7.0-11.0); MONO # 1.2 (0.1-0.6); MONO % 8.9 % (1.0-6.0); RBC 3.17 10^6/uL (3.5-6.1); RED CELL DISTRIBUTION WIDTH 14.3 % (11.5-14.5); WHITE BLOOD COUNT 13.7 10^3/ul (4.5-11.0)
[2017-10-09 07:17] LABS: TROPONIN I 0.34 ng/mL
[2017-10-09] MEDS ORDERED: Sodium Chloride 0.9% 1,000 ML IV SCH (08:15)
[2017-10-09] MEDS: Levothyroxine 25 MCG TAB PO SCH (09:46)
[2017-10-09] MEDS ORDERED: Potassium Chloride 20 mEq ER Tab PO ONE (09:59)
--- NOTE | 2017-10-09 10:14 | CARD ---
APPROVED REPORT Date of service: 10/08/2017 EKG Measurement Heart [id number] [id number] <Conclusion> Normal sinus rhythm Prolonged QT Abnormal ECG
--- NOTE | 2017-10-09 12:11 | CARD ---
APPROVED REPORT Date of service: 10/09/2017 EKG Measurement Heart [id number] <Conclusion> Sinus rhythm with 1 APC RVCD Prolonged QTc
--- NOTE | 2017-10-09 12:26 | PN ---
Copied To: Omar Kaba MD Attending MD: Omar Kaba MD DATE: 10/09/2017 REASON FOR CONSULTATION AND FOLLOWUP: Rule out non-ST segment myocardial infarction, admitted with SVT and sepsis. SUBJECTIVE: Patient denies any chest pain, shortness of breath, or any palpitation; feels a lot better. Not in apparent distress. PHYSICAL EXAMINATION: As follows: VITAL SIGNS: Temperature afebrile, heart rate 83, blood pressure 124/86. HEENT: PERRLA. Extraocular muscles intact. NECK: Supple. No carotid bruit or thyromegaly. CHEST: Clear to auscultation. HEART: S1 and S2, regular. ABDOMEN: Soft. EXTREMITIES: Clubbing and cyanosis negative. LABORATORY DATA: Blood workup as follows: WBC 13.7, hemoglobin 9.8, hematocrit 27.7, platelet count 108. Chemistry shows sodium 137, potassium 3.4, chloride 106, carbon dioxide , anion gap of 13. BUN 23, creatinine 0.6. Troponin 0.34. IMPRESSION: This is a 72-year-old female with past medical history of urinary tract infection in the past; hypertension; hyperlipidemia; history of supraventricular tachycardia in the past, on Eliquis at home;, admitted with urosepsis, altered mental status; supraventricular tachycardia, converted to normal sinus. Also, the patient had troponin positive, possibly non-ST segment myocardial infarction secondary to hemodynamic instability, underlying coronary artery disease, history of stress test at [facility] in 09/04/2013 and was negative. RECOMMENDATIONS: We will treat the patient as non-ST segment myocardial infarction. The patient had underlying sepsis and gram negative fabrice and the blood gram negative sepsis; history of hypogammaglobulinemia, on monthly IV injection. Treat as a non-ST segment myocardial infarction, continue aspirin, continue Plavix, continue DVT prophylaxis heparin, increased verapamil for SVT to 40 mg p.o. t.i.d. Once the sepsis is controlled, we will do cardiac catheterization probably early next week, discontinue Ringer lactate. Patient getting 150 mL for Ringer lactate, we will discontinue Ringer lactate. We will change to 50 mL/hour of normal saline. After he remains stable, we will discontinue IV fluid tomorrow. We will follow with you. We will aggressively supplement potassium. Increase atenolol to 25 b.i.d. If remains stable, we will discontinue IV fluid today. Patient has also severe protein calorie malnutrition, which was not present on admission. We will consider early cardiac catheterization. We will get echo to assess LV function. In the interim, continue broad spectrum antibiotic as per ID. Thank you, Dr. Darnell, for providing us the opportunity in taking care of the patient, Yadiel Casanovalinda. Omar Kaba MD
--- NOTE | 2017-10-09 13:30 | PN ---
Copied To: Isac Estrada MD Attending MD: Isac Estrada MD DATE: 10/09/2017 SUBJECTIVE: The patient is in bed, in no acute distress, nontoxic. She is much more awake and alert, responsive. PHYSICAL EXAMINATION: VITAL SIGNS: Temperature is 98, blood pressure is 115/60, respiratory rate of 18. HEENT: Unremarkable. NECK: Supple. LUNGS: Have decreased breath sounds. HEART: Normal S1, S2. ABDOMEN: Soft, nontender. LABORATORY EXAMINATION: Reveals a white count white count of 13,700, hemoglobin of 9, platelets of 108. Chemistries reveals a BUN of 23, creatinine of 0.6. Urinalysis is noted and microbiology reveals the blood cultures have gram-negative fabrice. Urine cultures have gram-negative fabrice. Review of orders reveals the patient to be on meropenem. ASSESSMENT AND PLAN: A 72-year-old female who was seen in the ICU 129, bed 1 early this morning with gastroesophageal reflux disease, hypertension, hypothyroidism, high cholesterol, deep vein thrombosis, depression, anxiety, asthma, osteoporosis, pseudomembranous colitis, small bowel obstruction, migraine headaches, fibromyalgia, history of Escherichia coli, urinary tract infection, chronic back pain and history of Immunoglobulin G deficiency, on immunoglobulin, admitted now with severe sepsis with gram-negative fabrice bacteremia with gram-negative fabrice in the urine as the source and currently on meropenem. We will check on the identification of the organism as both in the blood and the urine the gram-negative fabrice and we will make further recommendations. Thus far, review of the CAT scan of the abdomen and pelvis is compatible with a right pyelonephritis. We will follow closely with you. Isac Estrada MD
--- NOTE | 2017-10-09 17:37 | CARD ---
APPROVED REPORT Date of service: 10/08/2017 EXAM: Two-dimensional and M-mode echocardiogram with Doppler and color Doppler. INDICATION Infection:Rule out subacute bacterial endocarditis Non STEMI 2D DIMENSIONS Left Atrium (2D)3.8 (1.6-4.0cm)IVSd1.0 (0.7-1.1cm) LVDd3.7 (3.9-5.9cm)PWd1.0 (0.7-1.1cm) LVDs2.9 (2.5-4.0cm)LVEF (%)50.0 (>50%) M-Mode DIMENSIONS Aortic Root3.10 (2.2-3.7cm)Aortic Cusp Exc.1.90 (1.5-2.0cm) Mitral Valve E/A ratio0.0 TDI E/Lateral E'0.0E/Medial E'0.0 Tricuspid Valve TR Peak [id number] [id number] Peak Gr.20mmHg [id number] LEFT VENTRICLE The left ventricle is normal size. There is normal left ventricular wall thickness. The left ventricular function is normal.EF-55% There is normal LV segmental wall motion. Transmitral Doppler flow pattern is Grade III-reversible restrictive diastolic dysfunction. No left ventricle thrombus noted on this study. There is no ventricular septal defect visualized. There is no left ventricular aneurysm. There is no mass noted in the left ventricle. RIGHT VENTRICLE The right ventricle is normal size. There is normal right ventricular wall thickness. The right ventricular systolic function is normal. ATRIA The left atrium size is normal. The right atrium size is normal. The interatrial septum is intact with no evidence for an atrial septal defect. AORTIC VALVE The aortic valve is thickened but opens well. There is mild to moderate aortic regurgitation. There is no aortic valvular stenosis. There is no aortic valvular vegetation. MITRAL VALVE The mitral valve is thickened but opens well. Mitral regurgitation is mild. There is no mitral valve stenosis. There is no evidence of mitral valve prolapse. TRICUSPID VALVE The tricuspid valve leaflets are thickened , but open well. There is mild tricuspid regurgitation.RVSP-30 mmof hg. There is no tricuspid valve stenosis. There is no tricuspid valve prolapse or vegetation. PULMONIC VALVE The pulmonic valve is not well visualized, but probably normal There is no pulmonic valvular regurgitation. There is no pulmonic valvular stenosis. GREAT VESSELS The aortic root is normal in size. The ascending aorta is normal in size. The pulmonary artery is normal. The IVC is normal in size and collapses >50% with inspiration. PERICARDIAL EFFUSION There is no pleural effusion. There is no pericardial effusion. <Conclusion> Normal chamber Size. EF-55%. There is mild to moderate aortic regurgitation. Mitral regurgitation is mild. There is mild tricuspid regurgitation.RVSP-30 mmof hg. There is no pericardial effusion. No Vegetation or thrombus noted.
--- NOTE | 2017-10-09 20:42 | PN ---
Copied To: Dell Darnell MD Attending MD: Dell Darnell MD DATE: 10/09/2017 SUBJECTIVE: The patient is 72 years old, seems to be doing well. More alert, communicative, answer appropriately. Complained of poor appetite. PHYSICAL EXAMINATION: VITAL SIGNS: She is afebrile, pulse 80, respirations 18, blood pressure 148/75. LUNGS: Bilateral fair airflow. No rhonchi or crackle. HEART: S1 and S2 audible. ABDOMEN: Soft. Nontender. No rebound. No guarding. NEUROLOGICAL: She is awake, alert, oriented, communicative. LABORATORY EXAM: WBC 13.7, hemoglobin 9.8, hematocrit 27, platelet 108. PTT is 90.7. Chemistry: Sodium 136, potassium 3.4, chloride 106, CO2 of 21, BUN 23, creatinine 0.6, blood sugar 197, troponin is 0.34. Her blood culture, urine culture are growing E. coli that is sensitive to ertapenem and meropenem. ASSESSMENT: 1. Urosepsis, gram-negative sepsis. 2. Escherichia coli urinary tract infection. 3. History of deep venous thrombosis. 4. Hypertension. 5. Supraventricular tachycardia. PLAN: Currently, the patient is on aspirin 81 daily. She is on verapamil. She is on heparin. Her kidney function seems to be improving. I will discontinue heparin since it has been given 3 times a day. I will rather put her on Lovenox. Continue on meropenem, analgesic. We will follow up her electrolytes in the a.m. Dell Darnell MD
[2017-10-10] MEDS: oxyCODONE 10 mg Immediate Release Tab PO PRN (02:33)
[2017-10-10] MEDS: Meropenem IV 1 gm in NS 50 ML IVPB SCH ×3 (06:06→22:35)
[2017-10-10 07:34] LABS: BASO # 0.01 K/mm3 (0.0-2.0); BASO % 0.1 % (0.0-3.0); EOS % 0.3 % (1.5-5.0); GRAN # 7.92 (1.4-6.5); GRAN % 81.5 % (50.0-68.0); HEMOGLOBIN 10.7 g/dL (12.0-16.0); LYMPH # 0.7 (1.2-3.4); MEAN CELL VOLUME 87.6 fl (80.0-105.0); MEAN CORPUSCULAR HEMOGLOBIN 30.7 pg (25.0-35.0); MEAN CORPUSCULAR HGB CONC 35.1 g/dl (31.0-37.0); MEAN PLATELET VOLUME 9.5 fl (7.0-11.0); MONO # 1.1 (0.1-0.6); MONO % 11.1 % (1.0-6.0); RBC 3.48 10^6/uL (3.5-6.1); RED CELL DISTRIBUTION WIDTH 14.3 % (11.5-14.5); WHITE BLOOD COUNT 9.7 10^3/ul (4.5-11.0)
--- NOTE | 2017-10-10 08:22 | CP.PCM.PN ---
Subjective - Date & Time of Evaluation Date of Evaluation: 10/10/17 Time of Evaluation: 06:15 - Subjective Subjective: Awake, alert, no distress,denies palpitation Reason for consultation and follow up: Cardiac evaluation of SVT, history of hypercholesterolemia, hypertension, supraventricular tachycardia hypothyroidism, DVT, and headaches Seen and examined by me and Dr. Kaba Objective - Vital Signs/Intake and Output Vital Signs (last 24 hours): Temp Pulse Resp BP Pulse Ox 98.2 F 110 H 18 149/60 95 10/10/17 06:00 10/10/17 06:00 10/10/17 06:00 10/10/17 06:00 10/10/17 06:00 Intake and Output: 10/10/17 10/10/17 06:59 18:59 Intake Total 300 Output Total 800 Balance -500 - Medications Medications: Current Medications Acetaminophen (Tylenol 325mg Tab) 650 mg PO Q6H PRN PRN Reason: Fever >100.4 F Last Admin: 10/09/17 00:30 Dose: 650 mg Aspirin (Aspirin Chewable) 81 mg PO DAILY [facility] Last Admin: 10/09/17 09:46 Dose: 81 mg Atenolol (Tenormin) 25 mg PO BID [facility] Last Admin: 10/09/17 17:28 Dose: 25 mg Atorvastatin Calcium (Lipitor) 10 mg PO DIN [facility] Last Admin: 10/09/17 17:28 Dose: 10 mg Clopidogrel Bisulfate (Plavix) 75 mg PO DAILY [facility] Last Admin: 10/09/17 09:46 Dose: 75 mg Diazepam (Valium) 5 mg PO TID PRN; Protocol PRN Reason: Anxiety Famotidine (Pepcid) 40 mg PO HS [facility] Last Admin: 10/09/17 22:16 Dose: 40 mg Gabapentin (Neurontin) 600 mg PO BID [facility] PRN Reason: Protocol Last Admin: 10/08/17 04:09 Dose: Not Given Heparin Sodium (Porcine) (Heparin) 5,000 units SC Q8 [facility] PRN Reason: Protocol Last Admin: 10/10/17 06:06 Dose: 5,000 units Meropenem (Merrem Iv 1 Gm Premix) 50 mls @ 100 mls/hr IVPB Q8 [facility] PRN Reason: Protocol Last Admin: 10/10/17 06:06 Dose: 100 mls/hr Levothyroxine Sodium (Synthroid) 25 mcg PO DAILY [facility] Last Admin: 10/09/17 09:46 Dose: 25 mcg Ondansetron HCl (Zofran Inj) 4 mg IVP Q6H PRN PRN Reason: Nausea/Vomiting Oxycodone HCl (Oxycodone Immediate Release Tab) 10 mg PO QID PRN PRN Reason: Pain, severe (8-10) Last Admin: 10/10/17 02:33 Dose: 10 mg Oxycodone HCl (Oxycontin Extended Release Tab) 60 mg PO BID [facility] Verapamil HCl (Calan Tab) 40 mg PO TID [facility] Last Admin: 10/09/17 17:28 Dose: 40 mg Verapamil HCl (Verapamil Inj) 2.5 mg IVP Q6H PRN PRN Reason: for heart rate >130 Last Admin: 10/10/17 04:39 Dose: 2.5 mg - Labs Labs: 10/10/17 07:20 10/09/17 05:30 PT 13.2 SECONDS (9.4-12.5) H 10/07/17 17:05 INR 1.15 10/07/17 17:05 APTT 90.7 Seconds (25.1-36.5) H 10/08/17 15:25 - Constitutional Appears: No Acute Distress - Eye Exam Eye Exam: Normal appearance - ENT Exam ENT Exam: Mucous Membranes Moist - Respiratory Exam Respiratory Exam: Decreased Breath Sounds, Clear to Ausculation Bilateral, NORMAL BREATHING PATTERN Additional comments: Tachycardia- 110's/min - Cardiovascular Exam Cardiovascular Exam: +S1, +S2 - GI/Abdominal Exam GI & Abdominal Exam: Soft, Normal Bowel Sounds - Extremities Exam Extremities Exam: Normal Capillary Refill - Neurological Exam Neurological Exam: Alert, Awake, Oriented x3 - Psychiatric Exam Psychiatric exam: Normal Affect - Skin Skin Exam: Dry, Warm Assessment and Plan - Assessment and Plan (Free Text) Assessment: A 72 year old female who came in to the ER due to generalized weakness. History of hypercholesterolemia, hypertension, supraventricular tachycardia, hypothyroidism, DVT, and headaches.Admitted for sepsis,blood culture positive gram negative rods, urine culture positive for E.Coli. Non STEMI, positive troponins. Cardiac cath when stable from sepsis. Plan: Feels better, denies shortness of breath Heart rate down to 110-120's, tachycardia Blood pressure controlled Continue IV antibiotics per ID Increase Verapamil Replenish potassium Continue current medications Continue current treatment Will follow up Plan and treatment discussed with Dr. Kaba
[2017-10-10 08:24] LABS: ALB/GLOB RATIO 0.9 (1.1-1.8); ALBUMIN 2.5 g/dL (3.0-4.8); ALT/SGPT 34 U/L (7-56); AST/SGOT 28 U/L (14-36); BLOOD UREA NITROGEN 17 mg/dL (7-21); CALCIUM 7.9 mg/dL (8.4-10.5); GFR NON-AFRICAN AMERICAN > 60; TROPONIN I 0.17 ng/mL
[2017-10-10] MEDS ORDERED: Potassium Chloride 40 mEq/30 ml LIQ UD PO STA (08:33)
[2017-10-10] MEDS: Levothyroxine 25 MCG TAB PO SCH (09:37)
--- NOTE | 2017-10-10 11:48 | PN ---
Copied To: Isac Estrada MD Attending MD: Isac Estrada MD DATE: 10/10/2017 SUBJECTIVE: The patient is in bed in no acute distress, nontoxic. No fevers and chills. OBJECTIVE: VITAL SIGNS: On exam, temperature is 98, blood pressure is 140/60, respiratory rate 18, heart rate of 120. HEENT: Examination is unremarkable. NECK: Supple. LUNGS: Have decreased breath sounds. HEART: Normal S1, S2. ABDOMEN: Soft, nontender. No rebound or guarding. No masses. DATA: Laboratory examination reveals a white count of 9.7, hemoglobin of 10, platelets of 111. Coagulation is noted. Chemistries reveal a BUN of 17, creatinine of 0.6. Troponin 0.17. Urinalysis is noted. Microbiology reveals E. coli in the blood, which is intermediate to ceftriaxone, sensitive to Bactrim, sensitive to ertapenem, resistant to cefazolin, sensitive to Cipro, sensitive to cefepime and meropenem and E. coli in the urine with similar sensitivity.. Review of orders reveals the patient to be on meropenem. THE PATIENT IS ALLERGIC TO CIPRO, UNABLE TO USE CIPRO. ASSESSMENT AND PLAN: This is a 72-year-old female seen earlier today in 261, bed 1, was awake and alert, doing well and asking for her pain medications. She is requesting two Percocets instead of one with a past medical history of gastroesophageal reflux disease; hypertension; hypothyroidism; high cholesterol; deep venous thrombosis; depression; anxiety; asthma; osteoporosis; pseudomembranous colitis; small bowel obstruction; migraine headaches; fibromyalgia; Escherichia coli urinary tract infection; chronic back pain; history of IgG deficiency, on immunoglobulin who was admitted this admission, #1 with severe sepsis with Escherichia coli bacteremia secondary to Escherichia coli urine as the source, which ceftriaxone and cefazolin in a patient who is allergic to Cipro, limited options. As far as p.o. medications are concerned, we will continue the meropenem in patients with right pyelonephritis with Escherichia coli bacteremia and severe sepsis. We will need 10-14 days of antibiotics, today is day number day #3 of 10-14 days of meropenem, limited options. As far as p.o. medications are concerned, we will repeat the blood cultures to see if have cleared it in a patient who has [id number] myocardial infarction, also in addition to the severe sepsis and Escherichia coli bacteremia and Escherichia coli pyelonephritis. Dr. Darnell has ordered blood cultures x2. We will follow with you. Isac Estrada MD
[2017-10-10] MEDS: Potassium & Sodium Phosphate PO SCH ×2 (12:25→17:54)
[2017-10-10] MEDS: Enoxaparin 60 mg Syringe SC SCH (12:45)
[2017-10-10] MEDS: Verapamil 180 mg ER Tab PO SCH (12:46)
[2017-10-10] MEDS ORDERED: Potassium Chloride 20 mEq ER Tab PO ONE (13:00)
--- NOTE | 2017-10-10 17:39 | PN ---
Copied To: Dell Darnell MD Attending MD: Dell Darnell MD DATE: 10/10/2017 SUBJECTIVE: The patient is 72 years old, seen and examined, much more awake, alert, oriented, able to eat. Denies any nausea or vomiting. PHYSICAL EXAMINATION: VITAL SIGNS: She is afebrile, pulse 99, respiration 18, and blood pressure 130/79. LUNGS: Bilateral good airflow. No rhonchi or crackle. HEART: S1 and S2 audible. ABDOMEN: Soft, nontender. No rebound, no guarding. NEUROLOGIC: She is awake, alert, oriented, and communicative. Moves all extremities. LABORATORY EXAM: WBC is 9.7, hemoglobin 10.7, hematocrit 30.5, platelets of 111. Chemistry: Sodium 132, potassium 3.3, chloride 101, CO2 of 23. BUN 17, creatinine 0.6. Blood sugar of 94. Troponin 0.17. Phosphorus is 1.9. Her blood culture and urine culture are positive for E. coli. ASSESSMENT: 1. Escherichia coli urosepsis. The patient is clinically doing much better. 2. [id number] myocardial infarction. 3. Supraventricular tachycardia and possibly demand ischemia. 4. Gastritis. 5. Degenerative disk disease, status post diskectomy in the remote past. 6. History of deep venous thrombosis. 7. Thrombocytopenia. 8. IgG deficiency, on monthly IVIG infusion, but the patient has not taken for last almost 2 months. 9. Pyelonephritis. PLAN: The patient is clinically stable, but deconditioned, so I will request for TCU evaluation. If accepted, the patient can be transferred to TCU and I will switch her verapamil to 180 daily. We will follow up this patient in a.m. Dell Darnell MD
[2017-10-11] MEDS: Meropenem IV 1 gm in NS 50 ML IVPB SCH ×3 (06:12→21:43)
--- NOTE | 2017-10-11 07:08 | CP.PCM.PN ---
Subjective - Date & Time of Evaluation Date of Evaluation: 10/11/17 Time of Evaluation: 06:25 - Subjective Subjective: Awake, alert, no distress,feels weak Reason for consultation and follow up: Cardiac evaluation of SVT, history of hypercholesterolemia, hypertension, supraventricular tachycardia hypothyroidism, DVT, and headaches Seen and examined by me and Dr. Kaba Objective - Vital Signs/Intake and Output Vital Signs (last 24 hours): Temp Pulse Resp BP Pulse Ox 98.7 F 80 19 126/94 H 98 10/11/17 00:01 10/11/17 02:00 10/11/17 00:01 10/11/17 00:01 10/11/17 00:01 Intake and Output: 10/11/17 10/11/17 06:59 18:59 Intake Total 360 Output Total 325 Balance 35 - Medications Medications: Current Medications Acetaminophen (Tylenol 325mg Tab) 650 mg PO Q6H PRN PRN Reason: Fever >100.4 F Last Admin: 10/09/17 00:30 Dose: 650 mg Aspirin (Aspirin Chewable) 81 mg PO DAILY [facility] Last Admin: 10/10/17 09:37 Dose: 81 mg Atenolol (Tenormin) 25 mg PO BID [facility] Last Admin: 10/10/17 17:52 Dose: 25 mg Atorvastatin Calcium (Lipitor) 10 mg PO DIN [facility] Last Admin: 10/10/17 17:51 Dose: 10 mg Clopidogrel Bisulfate (Plavix) 75 mg PO DAILY [facility] Last Admin: 10/10/17 09:37 Dose: 75 mg Diazepam (Valium) 5 mg PO TID PRN; Protocol PRN Reason: Anxiety Enoxaparin Sodium (Lovenox) 60 mg SC DAILY [facility] PRN Reason: Protocol Last Admin: 10/10/17 12:45 Dose: 60 mg Famotidine (Pepcid) 40 mg PO HS [facility] Last Admin: 10/10/17 22:35 Dose: 40 mg Gabapentin (Neurontin) 600 mg PO BID [facility] PRN Reason: Protocol Last Admin: 10/08/17 04:09 Dose: Not Given Meropenem (Merrem Iv 1 Gm Premix) 50 mls @ 100 mls/hr IVPB Q8 [facility] PRN Reason: Protocol Last Admin: 10/11/17 06:12 Dose: 100 mls/hr Levothyroxine Sodium (Synthroid) 25 mcg PO DAILY [facility] Last Admin: 10/10/17 09:37 Dose: 25 mcg Ondansetron HCl (Zofran Inj) 4 mg IVP Q6H PRN PRN Reason: Nausea/Vomiting Last Admin: 10/11/17 00:11 Dose: 4 mg Oxycodone HCl (Oxycodone Immediate Release Tab) 10 mg PO QID PRN PRN Reason: Pain, severe (8-10) Last Admin: 10/10/17 02:33 Dose: 10 mg Oxycodone HCl (Oxycontin Extended Release Tab) 60 mg PO BID [facility] Potassium Phos/Sodium Phos (Neutra-Phos) 1 pkt PO BID [facility] Stop: 10/12/17 05:00 Last Admin: 10/10/17 17:54 Dose: 1 pkt Verapamil HCl (Verapamil Inj) 2.5 mg IVP Q6H PRN PRN Reason: for heart rate >130 Last Admin: 10/10/17 04:39 Dose: 2.5 mg Verapamil HCl (Calan Sr Tab) 180 mg PO DAILY [facility] Last Admin: 10/10/17 12:46 Dose: 180 mg - Labs Labs: 10/10/17 07:20 10/10/17 07:20 PT 13.2 SECONDS (9.4-12.5) H 10/07/17 17:05 INR 1.15 10/07/17 17:05 APTT 90.7 Seconds (25.1-36.5) H 10/08/17 15:25 - Constitutional Appears: No Acute Distress - Eye Exam Eye Exam: Normal appearance - ENT Exam ENT Exam: Mucous Membranes Moist - Respiratory Exam Respiratory Exam: Decreased Breath Sounds, NORMAL BREATHING PATTERN - Cardiovascular Exam Cardiovascular Exam: REGULAR RHYTHM, +S1, +S2 Additional comments: NSR telemetry 70- 80's - GI/Abdominal Exam GI & Abdominal Exam: Soft, Normal Bowel Sounds - Extremities Exam Extremities Exam: Normal Capillary Refill - Neurological Exam Neurological Exam: Alert, Awake, Oriented x3 - Psychiatric Exam Psychiatric exam: Normal Affect - Skin Skin Exam: Intact, Warm Assessment and Plan - Assessment and Plan (Free Text) Assessment: A 72 year old female who came in to the ER due to generalized weakness. History of hypercholesterolemia, hypertension, supraventricular tachycardia, hypothyroidism, DVT, and headaches.Admitted for sepsis,blood culture positive gram negative rods, urine culture positive for E.Coli. Non STEMI, positive troponins. Cardiac cath when stable from sepsis. On Verapamil for tachycardia. Plan: Feels weak but better, denies shortness of breath Heart rate controlled to 70-80's Blood pressure controlled On ASA 81 mg daily,Tenormin 25 mg BID,Lipitor 10 mg daily, Plavix 75 mg daily,Synthroid 25 mcg daily, Calan Sr 180 mg daily Continue IV antibiotics per ID Replenish potassium Continue current medications Continue current treatment Will follow up Plan and treatment discussed with Dr. Kaba
[2017-10-11] MEDS ORDERED: Potassium Chloride 20 mEq ER Tab PO STA (07:15)
[2017-10-11 07:21] LABS: BASO # 0.01 K/mm3 (0.0-2.0); BASO % 0.1 % (0.0-3.0); EOS % 0.4 % (1.5-5.0); GRAN # 6.48 (1.4-6.5); HEMOGLOBIN 11.6 g/dL (12.0-16.0); LYMPH # 1.3 (1.2-3.4); LYMPH % 14.7 % (22.0-35.0); MEAN CELL VOLUME 87.5 fl (80.0-105.0); MEAN CORPUSCULAR HEMOGLOBIN 30.1 pg (25.0-35.0); MEAN CORPUSCULAR HGB CONC 34.4 g/dl (31.0-37.0); MEAN PLATELET VOLUME 9.9 fl (7.0-11.0); MONO # 0.8 (0.1-0.6); MONO % 8.8 % (1.0-6.0); RBC 3.85 10^6/uL (3.5-6.1); RED CELL DISTRIBUTION WIDTH 14.2 % (11.5-14.5); WHITE BLOOD COUNT 8.5 10^3/ul (4.5-11.0)
[2017-10-11 07:41] LABS: ALB/GLOB RATIO 0.9 (1.1-1.8); ALBUMIN 2.4 g/dL (3.0-4.8); ALT/SGPT 38 U/L (7-56); AST/SGOT 28 U/L (14-36); BLOOD UREA NITROGEN 17 mg/dL (7-21); GFR NON-AFRICAN AMERICAN > 60
[2017-10-11 07:44] LABS: TROPONIN I 0.08 ng/mL
[2017-10-11] MEDS ORDERED: Potassium Chloride 20 mEq ER Tab PO ONE (08:57)
[2017-10-11] MEDS: Enoxaparin 60 mg Syringe SC SCH (10:11)
[2017-10-11] MEDS: Verapamil 180 mg ER Tab PO SCH (10:11)
[2017-10-11] MEDS: Potassium & Sodium Phosphate PO SCH ×2 (10:12→17:52)
[2017-10-11] MEDS: Levothyroxine 25 MCG TAB PO SCH (10:12)
[2017-10-11] MEDS ORDERED: Vancomycin 500 mg (Oral/Rectal USE) PO STA (10:43)
[2017-10-11] MEDS ORDERED: Vancomycin 500 mg (Oral/Rectal USE) PO SCH (14:00)
--- NOTE | 2017-10-11 14:10 | PN ---
Copied To: Omar Kaba MD Attending MD: Omar Kaba MD DATE: 10/11/2017 ADDENDUM This note is an addendum to the initial progress note dictated by our nurse practitioner Mariela Amaya . I discussed with the patient in length. The patient agreed. The patient is having diarrhea now. We will wait until the patient stabilize medically and If remaining stable for possible cardiac catheterization on Saturday. Risks, benefits and alternatives discussed with the patient. The patient agreed. We will reassess on Saturday for possible cardiac catheterization on Saturday morning. Interim, continue aspirin, continue Plavix, continue beta-josefina, continue Lipitor and continue Calan SR. Omar Kaba MD
[2017-10-11] MEDS: Lactobacillus Acidophilus 500 MU Cap PO SCH (17:52)
--- NOTE | 2017-10-11 20:20 | PN ---
Copied To: Isac Estrada MD Attending MD: Isac Estrada MD DATE: 10/11/2017 SUBJECTIVE: The patient is in bed, in no acute distress, nontoxic. PHYSICAL EXAMINATION: VITAL SIGNS: Temperature is 98, blood pressure is 130/70, respiratory rate of 18, heart rate of 109. HEENT: Unremarkable. NECK: Supple. LUNGS: Have decreased breath sounds. HEART: Normal S1, S2. ABDOMINAL: Soft, nontender. LABORATORY EXAMINATION: Reveals a white count of 8.5, hemoglobin of 11, platelets of 131. Chemistries reveals a BUN of 17, creatinine of 0.5. Urinalysis is noted. Microbiology reveals E. coli in the blood, E. coli in the urine and sensitivity is noted. It is intermediate ESTEE of 16 for ceftriaxone. It is sensitive to Bactrim, sensitive to ertapenem and resistant to cefazolin, sensitive to Cipro. The patient's repeat blood cultures have no growth. The stool for C. diff is negative antigen, negative toxin. Review of orders reveals the patient to have meropenem. ASSESSMENT AND PLAN: A 72-year-old female seen in [facility] [place] [facility] [place], bed 1, WHO IS ALLERGIC TO TETRACYCLINE, ALLERGIC TO CIPRO, who is doing well. Awake and alert. She was initially admitted with severe sepsis with Escherichia coli bacteremia, Escherichia coli right-sided pyelonephritis. Today is day #4 of 10-14 days of meropenem. Repeat cultures are negative and the patient was admitted with [id number]-[id number] myocardial infarction and the patient appears to be improving. We will follow with you. Day #4 of 10-14 days. Isac Estrada MD
--- NOTE | 2017-10-12 00:50 | PN ---
Copied To: Dell Darnell MD Attending MD: Dell Darnell MD DATE: 10/11/2017 SUBJECTIVE: The patient is 72 years old, seen and examined, complained of diarrhea. According to nurses, she has small bowel movement, not watery, otherwise complained of feeling weak and tired. PHYSICAL EXAMINATION: VITAL SIGNS: She is afebrile, pulse 69, respirations 18, blood pressure 138/79. LUNGS: Bilateral fair airflow. No rhonchi or crackle. HEART: S1 and S2 audible. ABDOMEN: Soft, nontender. No rebound. No guarding. NEUROLOGICAL: She is awake, alert, oriented, able to communicate. Moves all extremities. Has generalized weakness. LABORATORY EXAM: WBC 8.2, hemoglobin 11.6, hematocrit 33.5, platelet 131. PT is 90.7. Chemistry: Sodium 133, potassium 3.8, chloride 99, CO2 of 25, BUN 17, creatinine 0.5. Phosphorous is 2.3. Her today's troponin is 0.08. ASSESSMENT: 1. Status post urosepsis. 2. Status post supraventricular tachycardia. 3. Hzs-FL-ijhbtrkop myocardial infarction. 4. Stool for Clostridium difficile is negative. 5. History of deep venous thrombosis. 6. Hypertension. 7. Generalized weakness. 8. Deconditioning and difficulty walking. PLAN: Patient is currently on aspirin. She is on verapamil. She is on Lipitor and getting meropenem. Plan is to do cardiac catheterization on Saturday. In the meantime, we will continue patient on current medication and since the stool for C. diff is negative, we will discontinue her vancomycin. Dell Darnell MD
[2017-10-12] MEDS: Meropenem IV 1 gm in NS 50 ML IVPB SCH ×3 (06:32→22:17)
[2017-10-12 07:30] LABS: BASO # 0.01 K/mm3 (0.0-2.0); BASO % 0.1 % (0.0-3.0); EOS % 0.4 % (1.5-5.0); GRAN # 5.51 (1.4-6.5); HEMOGLOBIN 11.7 g/dL (12.0-16.0); LYMPH # 1.7 (1.2-3.4); LYMPH % 22.1 % (22.0-35.0); MEAN CELL VOLUME 88.1 fl (80.0-105.0); MEAN CORPUSCULAR HEMOGLOBIN 30.2 pg (25.0-35.0); MEAN CORPUSCULAR HGB CONC 34.2 g/dl (31.0-37.0); MEAN PLATELET VOLUME 10.4 fl (7.0-11.0); MONO # 0.6 (0.1-0.6); MONO % 7.4 % (1.0-6.0); RBC 3.88 10^6/uL (3.5-6.1); RED CELL DISTRIBUTION WIDTH 14.1 % (11.5-14.5); WHITE BLOOD COUNT 7.9 10^3/ul (4.5-11.0)
[2017-10-12 07:52] LABS: ALBUMIN 2.5 g/dL (3.0-4.8); ALT/SGPT 35 U/L (7-56); AST/SGOT 25 U/L (14-36); BLOOD UREA NITROGEN 17 mg/dL (7-21); CALCIUM 8.2 mg/dL (8.4-10.5); GFR NON-AFRICAN AMERICAN > 60
--- NOTE | 2017-10-12 07:57 | PN ---
Copied To: Isac Estrada MD Attending MD: Isac Estrada MD DATE: 10/12/2017 SUBJECTIVE: The patient is in bed, in no acute distress, nontoxic. OBJECTIVE: VITAL SIGNS: On exam, temperature is 98, blood pressure is 139/80, respiratory rate 20. HEENT: Examination is unremarkable. NECK: Supple. LUNGS: Have decreased breath sounds. HEART: Normal S1, S2. ABDOMEN: Soft. DATA: Laboratory examination reveals a white count of 8.5, hemoglobin 11, platelets of 131. Coagulation is noted. Chemistries reveal a BUN of 17, creatinine of 0.5. Urinalysis is noted and Microbiology reveals initial blood cultures with E. Coli and intermediate resistance to ceftriaxone, resistance to ampicillin, sensitive to Bactrim and sensitive to Cipro, gentamicin, piperacillin, Zosyn and meropenem and cefepime and resistant to cefazolin.. The patient's urine cultures also has E. coli which shows same assistance pattern with ESTEE of 16 to ceftriaxone. THE PATIENT IS ALLERGIC TO CIPRO AND TETRACYCLINE. Normal renal function. Repeat cultures are negative. Review of orders reveals the patient to be on meropenem. ASSESSMENT AND PLAN: This is a 72-year-old female seen in room 261 bed 1, ALLERGIC TO TETRACYCLINE AND CIPRO, doing well. Awake and alert, admitted with severe sepsis with Escherichia coli bacteremia, Escherichia coli right-sided pyelonephritis. Today is day #5 of 10-14 days of meropenem, may be able to switch to p.o. Bactrim double-strength b.i.d. times 5 days to complete a 10-day course of therapy. The patient also admitted with biv-IN-owvxilpna myocardial infarction and appears to be improving, today is day #5 of 10-14 days, may be able to switch to p.o. Bactrim double-strength p.o. b.i.d. times five more days. Dr. Darnell's note is reviewed from yesterday. Isac Estrada MD
[2017-10-12] MEDS: Potassium & Sodium Phosphate PO SCH ×2 (10:17→17:11)
[2017-10-12] MEDS: Enoxaparin 60 mg Syringe SC SCH (10:17)
[2017-10-12] MEDS: Levothyroxine 25 MCG TAB PO SCH (10:17)
[2017-10-12] MEDS: Verapamil 180 mg ER Tab PO SCH (10:18)
[2017-10-12] MEDS: Lactobacillus Acidophilus 500 MU Cap PO SCH ×2 (10:18→17:11)
--- NOTE | 2017-10-12 19:31 | PN ---
Copied To: Dell Darnell MD Attending MD: Dell Darnell MD DATE: 10/12/2017 SUBJECTIVE: The patient is 72 years old, seen and examined, lying in bed, seemed to be comfortable, was able to ambulate yesterday without any difficulty. No chest pain, no shortness of breath. Diarrhea has resolved. Still has increased frequency of urination. PHYSICAL EXAMINATION VITAL SIGNS: She is afebrile, pulse 77, respirations 18, blood pressure 153/102. LUNGS: Bilateral fair airflow. No rhonchi or crackle. HEART: S1 and S2 audible. ABDOMEN: Soft, nontender. No rebound, no guarding. NEUROLOGIC: She is awake, alert, oriented, and communicative. EXTREMITIES: Bilateral legs, no edema. LABORATORY DATA: WBC is 7.9, hemoglobin 11.7, hematocrit 34.2, and platelets of 158. Chemistry: Sodium 134, potassium 3.7, chloride 98, CO2 of 29. BUN 17, creatinine 0.5. Blood sugar of 101. Phosphorus is 2.4. ASSESSMENT: 1. Escherichia coli sepsis. 2. Escherichia coli urinary tract infection. 3. Supraventricular tachycardia. 4. Probably demand ischemia, she had because of sepsis. 5. History of Clostridium difficile in the past. 6. History of deep venous thrombosis. 7. Hypertension. 8. Hypothyroidism. 9. Degenerative disk disease. PLAN: Currently, the patient is on aspirin 81 daily. We will continue her on verapamil. Continue statin. She is on Lovenox and on meropenem. We will continue Neutra-Phos also. She is receiving Plavix. Since her stool C. difficile was negative, vancomycin was discontinued. Continue her meropenem and the patient is scheduled to have cardiac cath done on Saturday. Dell Darnell MD
[2017-10-13] MEDS: oxyCODONE 10 mg Immediate Release Tab PO PRN ×4 (01:36→22:29)
[2017-10-13] MEDS: Meropenem IV 1 gm in NS 50 ML IVPB SCH ×2 (05:27→05:28)
[2017-10-13] MEDS: Lactobacillus Acidophilus 500 MU Cap PO SCH ×2 (09:45→17:34)
[2017-10-13] MEDS: Enoxaparin 60 mg Syringe SC SCH (09:46)
[2017-10-13] MEDS: Verapamil 180 mg ER Tab PO SCH (09:46)
[2017-10-13] MEDS: Levothyroxine 25 MCG TAB PO SCH (09:46)
[2017-10-13] MEDS: Potassium & Sodium Phosphate PO SCH ×2 (09:47→17:35)
--- NOTE | 2017-10-13 15:01 | PN ---
Copied To: Isac Estrada MD Attending MD: Isac Estrada MD DATE: 10/13/2017 SUBJECTIVE: Patient is in bed, in no acute distress, nontoxic. PHYSICAL EXAMINATION: VITAL SIGNS: Temperature is 98, blood pressure is 130/90, respiratory rate of 18. HEENT: Unremarkable. NECK: Supple. LUNGS: Have decreased breath sounds. HEART: Normal S1, S2. ABDOMEN: Soft, nontender. LABORATORY DATA: Laboratory examination reveals white count of 7.9, hemoglobin of 11, platelets of 158. Coagulation is noted. Chemistries reveal BUN of 17, creatinine of 0.7 and the troponin is noted elevated and the third one now is low. Urinalysis is noted and microbiology reveals E. Coli in the blood, E. Coli in the urine. Repeat blood cultures are no growth and the C. difficile is negative antigen and negative toxin. Review of orders reveals the patient to be on meropenem. Dr. Darnell's note is reviewed from yesterday. ASSESSMENT AND PLAN: A 72-year-old female, admitted with severe sepsis with Escherichia coli bacteremia, Escherichia coli right-sided pyelonephritis, also with esr-QK-opiykcghq myocardial infarction and the patient with Escherichia coli pyelonephritis and severe sepsis and Escherichia coli bacteremia with right-sided pyelonephritis. Today is day #6 of meropenem, would complete 10-14 days of antibiotics, maybe able to switch to p.o. Bactrim double-strength to complete the rest of the therapy. The patient is scheduled for cardiac catheterization on Saturday. We will follow with you. Escherichia coli has intermediate resistance to ceftriaxone. It is resistant to cefazolin and the patient has an ALLERGY TO CIPRO, was unable to use that, currently on meropenem. Isac Estrada MD
[2017-10-13] MEDS: Tmp-Smz 800 mg-160 mg DS Tab PO SCH (17:34)
--- NOTE | 2017-10-13 18:53 | PN ---
Copied To: Dell Darnell MD Attending MD: Dell Darnell MD DATE: 10/13/2017 SUBJECTIVE: The patient is 72 years old, seen and examined, lying in bed, complained of generalized weakness. No chest pain, no shortness of breath. No nausea or vomiting. No diarrhea. Eating fair. PHYSICAL EXAMINATION: VITAL SIGNS: She is afebrile, pulse 81, respirations 17 and blood pressure 129/81. LUNGS: Bilateral fair airflow. No rhonchi or crackle. HEART: S1 and S2 audible. ABDOMEN: Soft, nontender. No rebound, no guarding. NEUROLOGICALLY: She is awake, alert, oriented, communicative. Moves all extremities. EXTREMITIES: Bilateral legs, no edema. LABORATORY DATA: Her troponin has normalized at 0.08. Her repeat cultures are negative for E. coli. ASSESSMENT AND PLAN: Status post Escherichia coli sepsis, sensitive to Bactrim. The patient has poor IV access, so she is being switched to p.o. Bactrim. Escherichia coli is sensitive to Bactrim. The patient is scheduled to have cardiac cath done on Saturday. Dell Darnell MD
[2017-10-14 07:01] LABS: EOS # 0.1 (0.0-0.7); EOS % 1.8 % (1.5-5.0); GRAN # 3.95 (1.4-6.5); GRAN % 63.7 % (50.0-68.0); HEMOGLOBIN 11.4 g/dL (12.0-16.0); LYMPH # 1.7 (1.2-3.4); LYMPH % 26.8 % (22.0-35.0); MEAN CELL VOLUME 88.3 fl (80.0-105.0); MEAN CORPUSCULAR HEMOGLOBIN 30.3 pg (25.0-35.0); MEAN CORPUSCULAR HGB CONC 34.3 g/dl (31.0-37.0); MEAN PLATELET VOLUME 9.9 fl (7.0-11.0); MONO # 0.5 (0.1-0.6); MONO % 7.7 % (1.0-6.0); RBC 3.76 10^6/uL (3.5-6.1); RED CELL DISTRIBUTION WIDTH 13.9 % (11.5-14.5); WHITE BLOOD COUNT 6.2 10^3/ul (4.5-11.0)
[2017-10-14 07:42] LABS: ALBUMIN 2.9 g/dL (3.0-4.8); ALT/SGPT 30 U/L (7-56); AST/SGOT 33 U/L (14-36); BLOOD UREA NITROGEN 14 mg/dL (7-21); CALCIUM 8.4 mg/dL (8.4-10.5); GFR NON-AFRICAN AMERICAN > 60
--- NOTE | 2017-10-14 09:19 | PN ---
Copied To: Isac Estrada MD Attending MD: Isac Estrada MD DATE: 10/14/2017 SUBJECTIVE: The patient is in bed in no acute distress, nontoxic. No fevers. PHYSICAL EXAMINATION: VITAL SIGNS: Temperature is 98, blood pressure is 140/80, respiratory rate of 18. HEENT: Unremarkable. NECK: Supple. LUNGS: Have decreased breath sounds. HEART: Normal S1, S2. ABDOMEN: Soft, nontender. LABORATORY EXAMINATION: Reveals a white count of 6.2, hemoglobin 11, platelets of 180. Chemistries reveals a BUN of 14, creatinine of 0.6 and troponin is 0.08. The urinalysis is noted. Microbiology reveals initially the patient had positive E. coli in the blood, positive E. coli in the urine. Repeat blood cultures are negative and THE PATIENT IS ALLERGIC TO CIPRO AND TETRACYCLINE CURRENT MEDICATIONS: Include the patient to be on meropenem and switch to p.o. Bactrim. ASSESSMENT AND PLAN: This is a 72-year-old female who is admitted with a severe sepsis with Escherichia coli bacteremia, Escherichia coli right-sided pyelonephritis and sji-AR-nvbqwljsw myocardial infarction and today is day #7. The patient initially was treated with meropenem and although the Escherichia coli is sensitive to Cipro, THE PATIENT IS ALLERGIC TO CIPRO AND TETRACYCLINE. Today is day #7 of 10-14 days. He is switch to p.o. Bactrim, may complete therapy. The patient scheduled for a cardiac catheterization in a.m. We will follow with you now and switch from meropenem to Cipro, day #7 of 10-14 days of antibiotics. Isac Estrada MD
[2017-10-14] MEDS: Enoxaparin 60 mg Syringe SC SCH (09:41)
[2017-10-14] MEDS: Potassium & Sodium Phosphate PO SCH ×2 (09:41→18:03)
[2017-10-14] MEDS: Levothyroxine 25 MCG TAB PO SCH (09:41)
[2017-10-14] MEDS: Tmp-Smz 800 mg-160 mg DS Tab PO SCH ×2 (09:42→18:03)
[2017-10-14] MEDS: Verapamil 180 mg ER Tab PO SCH (09:42)
[2017-10-14] MEDS: Lactobacillus Acidophilus 500 MU Cap PO SCH ×2 (09:42→18:03)
[2017-10-14] MEDS ORDERED: Potassium Chloride 20 mEq ER Tab PO ONE (10:30)
[2017-10-14] MEDS: Magnesium Oxide 400 mg Tab UD PO SCH ×2 (12:25→18:03)
--- NOTE | 2017-10-14 16:25 | PN ---
Copied To: Omar Kaba MD Attending MD: Omar Kaba MD DATE: 10/14/2017 REASON FOR CONSULTATION AND FOLLOWUP: Coronary artery disease, non ST segment myocardial infarction, admitted with sepsis, SVT, PAF SUBJECTIVE:. The patient denies chest pain, shortness of breath, or any palpitations. PHYSICAL EXAMINATION: GENERAL: Not in apparent distress. VITAL SIGNS: Temperature afebrile. Heart rate 80, blood pressure 141/88. HEENT: PERRLA, intact. NECK: Supple. No carotid bruit or thyromegaly. CHEST: Clear to auscultation. HEART: S1, S2 regular. ABDOMEN: Soft. EXTREMITIES: Clubbing, cyanosis negative. LABORATORY DATA: WBC 6.2, hemoglobin 11, hematocrit 33.2, platelet count 180. Chemistry shows sodium 130, potassium 3.8, chloride 94, carbon dioxide 31, anion gap of 11, BUN 14, creatinine 0.6. Total protein , albumin-globulin ratio 0.9. IMPRESSION: 1. Protein-calorie malnutrition, which is moderate now. At one point, it was severe. On admission, within normal. 2. Hypokalemia. 3. Supraventricular tachycardia. 4. Sepsis, gram negative fabrice in blood. Repeat blood cultures negative. 5. Non ST segment elevation myocardial infarction. Admitted with altered mental status and gram-negative sepsis. 6. History of prior stress test of 09/04/2013 which was negative, admitted at this time with non-ST segment myocardial infarction. 7. History of supraventricular tachycardia in the past, history of Eliquis at home for supraventricular tachycardia. RECOMMENDATIONS: Eliquis on hold. Continue Plavix. The patient is on enoxaparin, that is, Lovenox. We will hold it for cardiac catheterization tomorrow. Will continue aspirin, continue Plavix, continue verapamil, continue atorvastatin. Monitor electrolytes, supplement as needed. Continue atenolol. Cardiac catheterization tomorrow. Risks, benefits alternatives discussed with patient. Further recommendations after cardiac catheterization. Will follow with you. Supplement electrolytes as needed. We will give 40 of potassium now. Risks, benefits and alternatives discussed with patient. Patient agreed to proceed for cardiac catheterization tomorrow. We will discontinue Lovenox. The patient was on Eliquis at home for recurrent SVT/PAF. History of PAF in the past. Last echo dated 10/08/2017 showed ejection fraction 55%, [id number] aortic regurgitation, mild mitral regurgitation, mild tricuspid regurgitation, RV systolic pressure 30. We will also supplement low dose of magnesium oxide also. Thank you, Dr. Darnell, for providing us the opportunity in taking care of the patient, Yadiel Haji. Omar Kaba MD
--- NOTE | 2017-10-14 17:02 | PN ---
Copied To: Dell Darnell MD Attending MD: Dell Darnell MD DATE: 10/14/2017 SUBJECTIVE: Patient is 72 years old, came in with E. coli sepsis, had non-ST elevation AR. Her repeat cultures are clear. Because of poor IV access, she was started on p.o. Bactrim, got midline placed yesterday, ready for cath tomorrow. PHYSICAL EXAMINATION: GENERAL: Today, she is awake, alert, oriented, communicative, complained of generalized weakness, difficulty walking, feel dizzy when standing up. VITAL SIGNS: She is afebrile, pulse 78, respirations 17, blood pressure 140/80. LUNGS: Bilateral fair airflow. No rhonchi or crackles. HEART: S1, S2 audible. ABDOMEN: Soft, nontender. No rebound. No guarding. NEUROLOGIC: She is awake, alert, oriented, communicative. EXTREMITIES: She has midline on her right arm. LABORATORY DATA: WBC 6.2, hemoglobin 11.4, hematocrit 33.2, platelet 180. Chemistry: Sodium 132, potassium 3.8, chloride 94, CO2 of 31, BUN 14, creatinine 0.6, blood sugar of 96. LFTs are within normal limits. ASSESSMENT: 1. Status post Escherichia coli urosepsis. 2. Non-ST elevation myocardial infarction. 3. Hypertension. 4. Hyperlipidemia. 5. Hypogammaglobulinemia. 6. Hypothyroidism. PLAN: Patient is on p.o. Bactrim. She is on Bacid. She is on verapamil. She is scheduled for cardiac cath in a.m. After this, she will be evaluated by TCU for rehab since she has unstable gait and will not be safe for discharge. Dell Darnell MD
[2017-10-14] MEDS: oxyCODONE 10 mg Immediate Release Tab PO PRN (19:52)
[2017-10-15 05:51] VITALS: O2SAT 96
[2017-10-15 06:55] LABS: BASO # 0.01 K/mm3 (0.0-2.0); BASO % 0.1 % (0.0-3.0); EOS # 0.1 (0.0-0.7); EOS % 1.3 % (1.5-5.0); GRAN # 6.44 (1.4-6.5); HEMOGLOBIN 11.4 g/dL (12.0-16.0); LYMPH # 1.4 (1.2-3.4); LYMPH % 16.3 % (22.0-35.0); MEAN CELL VOLUME 87.3 fl (80.0-105.0); MEAN CORPUSCULAR HEMOGLOBIN 30.2 pg (25.0-35.0); MEAN CORPUSCULAR HGB CONC 34.7 g/dl (31.0-37.0); MEAN PLATELET VOLUME 10.2 fl (7.0-11.0); MONO # 0.6 (0.1-0.6); MONO % 7.3 % (1.0-6.0); RBC 3.77 10^6/uL (3.5-6.1); RED CELL DISTRIBUTION WIDTH 13.9 % (11.5-14.5); WHITE BLOOD COUNT 8.6 10^3/ul (4.5-11.0)
[2017-10-15 07:04] LABS: ALB/GLOB RATIO 1.1 (1.1-1.8); ALT/SGPT 36 U/L (7-56); AST/SGOT 37 U/L (14-36); BLOOD UREA NITROGEN 14 mg/dL (7-21); CALCIUM 8.3 mg/dL (8.4-10.5); GFR NON-AFRICAN AMERICAN > 60
[2017-10-15] MEDS ORDERED: Iodixanol 320 MG/ML 100 ML BOTTLE IV ONE (07:22)
[2017-10-15] MEDS ORDERED: Iohexol 350mgl/ml 50 ML ONE (07:22)
[2017-10-15] MEDS ORDERED: Nitroglycerin 50mg in D5W 50 MG/250 ML BOTTLE IV ONE (07:22)
[2017-10-15] MEDS ORDERED: Verapamil 2 ML ONE (07:22)
[2017-10-15] MEDS ORDERED: Iodixanol 320 MG/ML 200 ML BOTTLE IV ONE (07:22)
[2017-10-15] MEDS ORDERED: Phenylephrine 10 mg/ml Inj ONE (07:22)
[2017-10-15] MEDS ORDERED: Midazolam 2 MG/2 ML VIAL ONE (08:09)
[2017-10-15] MEDS ORDERED: Bacitracin 500 Units/gm Oint Foilpak UD TOP ONE (08:52)
[2017-10-15] MEDS ORDERED: Sodium Chloride 0.9% 1,000 ML IV SCH (09:00)
--- NOTE | 2017-10-15 09:14 | CPOSTOP ---
Copied To: Omar Kaba MD Attending MD: Omar Kaba MD DATE: 10/15/2017 CARDIOVASCULAR LAB POST PROCEDURE NOTE DICTATING PHYSICIAN: Omar Kaba MD NEEDLE SETTER: KESHIA Roberts. TYPE OF ANESTHESIA: Moderate conscious sedation. Total 1 mg of Versed, 50 of fentanyl given. PRE-PROCEDURE DIAGNOSES: Unstable angina, acute coronary syndrome, jle-HO-uravoma myocardial infarction, sepsis. PROCEDURE PERFORMED: Left heart catheterization. FINDINGS: Mid LAD 30-40% stenosis, mid RCA 30% stenosis, distal RCA 55% stenosis in the worst-view. FINAL DIAGNOSIS: Nonobstructive coronary artery disease. POST PROCEDURE CONDITION: Post procedure, the patient's condition is stable. VASCULAR ACCESS SITE: Left radial artery. CLOSURE DEVICE: TR Band. TOTAL RADIATION DOSE: 2246.75. FLUORO TIME: 4.5 minutes. Omar Kaba MD
[2017-10-15] MEDS: Potassium & Sodium Phosphate PO SCH ×2 (10:28→17:08)
[2017-10-15] MEDS: Magnesium Oxide 400 mg Tab UD PO SCH ×2 (10:28→17:09)
[2017-10-15] MEDS: Levothyroxine 25 MCG TAB PO SCH (10:28)
[2017-10-15] MEDS: Verapamil 180 mg ER Tab PO SCH (10:28)
[2017-10-15] MEDS: Lactobacillus Acidophilus 500 MU Cap PO SCH ×2 (10:29→17:09)
[2017-10-15] MEDS: Tmp-Smz 800 mg-160 mg DS Tab PO SCH ×2 (10:29→17:08)
[2017-10-15] MEDS ORDERED: Bacitracin 500 Units/gm Oint Foilpak UD ONE (11:36)
--- NOTE | 2017-10-15 11:46 | CARD ---
APPROVED REPORT Date of service: 10/15/2017 Procedure(s) performed: Left Heart Catheterization HISTORY The patient is a 72 year-old female with a history of : most recent EF: 50%. (EF Method: Echocardiogram), peripheral vascular disease, hypertension , Admitted with Sepsis, gram negative bacteremia, SVT and Non STEMI, after being stablized underwent cardiac catheterization.Hx of SVT and DVT and PE in the past at one point was on Eliquis, off Eliquis on admission.. INDICATION The indication(s) include : non-STEMI . CASE TECHNIQUE The patient was brought urgently to the Cardiac Catheterization Laboratory in a fasting state and was prepped and draped in a sterile manner. The left wrist was infiltrated with 2% Lidocaine subcutaneous anesthesia. A 6FR [employer] ACCESS KIT sheath was inserted into the left radial artery without difficulty. Coronary angiography was performed using coronary diagnostic catheters. The left coronary system was accessed and visualized with a Diagnostic ,6 Fr JL 4.5 catheter. The right coronary system was accessed and visualized with a Diagnostic ,5F JR 4 CATH DXT 100 CM catheter. The left ventricle was accessed and visualized with a 5F PIGTAIL 145 CATH DXT 110 CM catheter. Left ventricular/Aortic Valve gradient assessed on pullback. Left ventriculogram was performed in WEBB projection. Closure device was deployed with a Fr TR Band (Regular) without any complications. The patient tolerated the procedure well and there were no complications associated with the procedure. Vessel Analysis The patient's coronary anatomy is right dominant. The left main coronary artery is a large size vessel without significant stenosis. The left main bifurcates to the left anterior descending and circumflex. The left anterior descending artery is a medium size vessel with diffuse calcification noted throughout this vessel and without significant stenosis. There is a 30% stenosis in the mid segment. The first diagonal branch is a medium size vessel with intimal irregularities and without significant stenosis. The circumflex artery is a medium size vessel with intimal irregularities and without significant stenosis. The first obtuse marginal branch is a large size vessel with intimal irregularities and without significant stenosis. The right coronary artery is a large size vessel with diffuse calcification noted throughout this vessel and without significant stenosis. There is a 55% stenosis in the distal segment. 30-40% stenosis in mid segment noted The right posterior descending artery is a large size vessel without significant stenosis. The right posterolateral branch is a large size vessel without significant stenosis. Left Ventricle The left ventricle is borderline in size with normal contractility. There was no cardiomyopathy. The left ventricular ejection fraction is estimated to be 55%. The left ventricular end diastolic pressure is 3-4 mmHg. There was no gradient across the aortic valve upon pullback. 2-3 + MR noted, possible catheter induced, Conclusion Non obstructive CAD limited to distal RCA 55% Mitral regurgitation moderate( 2-3+), possible catheter induced. Preserved LV FX. EF-55%, EDP-3-4 mmof hg. Hx of SVT, DVT, and PE was on eliquis at one point and Off eliquis on this admission. Recommendations Aggressive Medical Therapy Continue ASA 81 mg po daily, atenolol and verapamil for SVT. F/u echo in 1-2 year to monitor MR CC; dr. Darnell
[2017-10-15 17:41] VITALS: BP 111/78; PULSE 72; RESP 18; TEMP 98.5
--- NOTE | 2017-10-16 06:15 | DS ---
Copied To: Dell Darnell MD Attending MD: Dell Darnell MD HISTORY OF PRESENT ILLNESS: The patient is a 72-year-old seen and examined, doing well, had cardiac cath, nonobstructive, currently cleared from Cardiology point of view to be transferred to TCU. The patient was admitted with altered mental status, supraventricular tachycardia, troponin, was in ICU because of E. coli sepsis, has been on IV antibiotic, doing well. No nausea, vomiting. No diarrhea. PHYSICAL EXAMINATION: VITAL SIGNS: She is afebrile, pulse 86, respirations 19, blood pressure 118/92. LUNGS: Bilateral good airflow. No rhonchi or crackle. HEART: S1 and S2 audible. ABDOMEN: Soft, nontender. No rebound. No guarding. NEUROLOGICAL: The patient is awake, alert, oriented, communicative. LABORATORY EXAMINATION: WBC is 8.6, hemoglobin 11.4, hematocrit 32.9, platelet of 219,000. Chemistry: Sodium 132, potassium 4.1, chloride 97, CO2 of 97, BUN 14, creatinine 0.6, blood sugar 102. LFTs are within normal limits. ASSESSMENT AND PLAN: 1. Status post Escherichia coli sepsis. Repeat cultures are negative. 2. Hypertension. 3. Hyperlipidemia. 4. Status post supraventricular tachycardia. 5. Probably demand ischemia, status post cardiac cath. The patient is clinically stable, can be transferred to TCU today. We will follow up there. Dell Darnell MD
[2017-10-16] MEDS ORDERED: Enoxaparin 30 mg Syringe SC SCH (10:00)
== END 2017-10-15 19:15 | DRG 871 ==
LOC: ED 16:50 → ERH 19:59 → CCU 10-08 00:29 → 2RNO 10-09 18:09 → 2RSO 10-15 09:03
PROVIDERS: ADMIT Internal Medicine; ATTEND Internal Medicine
PROC: 4A023N7 Measurement of Cardiac Sampling and Pressure, Left Heart, Percutaneous Approach (ICD-10-PCS; principal; 2017-10-15)
PROC: B2151ZZ Fluoroscopy of Left Heart using Low Osmolar Contrast (ICD-10-PCS; 2017-10-15)
PROC: B2111ZZ Fluoroscopy of Multiple Coronary Arteries using Low Osmolar Contrast (ICD-10-PCS; 2017-10-15)
DX: A41.51 Sepsis due to Escherichia coli [E. coli] (principal); R65.21 Severe sepsis with septic shock; I21.4 Non-ST elevation (NSTEMI) myocardial infarction; E43 Unspecified severe protein-calorie malnutrition; I47.1 Supraventricular tachycardia; D80.1 Nonfamilial hypogammaglobulinemia; D80.3 Selective deficiency of immunoglobulin G [IgG] subclasses; E87.1 Hypo-osmolality and hyponatremia; I25.110 Atherosclerotic heart disease of native coronary artery with unstable angina pectoris; E87.2 Acidosis; N12 Tubulo-interstitial nephritis, not specified as acute or chronic; I34.0 Nonrheumatic mitral (valve) insufficiency; D69.6 Thrombocytopenia, unspecified; E03.9 Hypothyroidism, unspecified; E86.0 Dehydration; E87.6 Hypokalemia; I12.9 Hypertensive chronic kidney disease with stage 1 through stage 4 chronic kidney disease, or unspecified chronic kidney disease; N18.9 Chronic kidney disease, unspecified; K31.84 Gastroparesis; E78.00 Pure hypercholesterolemia, unspecified; E78.5 Hyperlipidemia, unspecified; M81.0 Age-related osteoporosis without current pathological fracture; F32.9 Major depressive disorder, single episode, unspecified; F41.9 Anxiety disorder, unspecified; K21.9 Gastro-esophageal reflux disease without esophagitis; I73.9 Peripheral vascular disease, unspecified; I48.0 Paroxysmal atrial fibrillation; J45.909 Unspecified asthma, uncomplicated; K29.70 Gastritis, unspecified, without bleeding; M79.7 Fibromyalgia; I45.10 Unspecified right bundle-branch block; G43.909 Migraine, unspecified, not intractable, without status migrainosus; M51.86 Other intervertebral disc disorders, lumbar region; R26.2 Difficulty in walking, not elsewhere classified; Z16.11 Resistance to penicillins; Z68.21 Body mass index [BMI] 21.0-21.9, adult; Z79.82 Long term (current) use of aspirin; Z86.718 Personal history of other venous thrombosis and embolism; Z86.711 Personal history of pulmonary embolism; Z79.02 Long term (current) use of antithrombotics/antiplatelets; Z86.010 Personal history of colon polyps; Z88.1 Allergy status to other antibiotic agents; Z98.1 Arthrodesis status

== ENCOUNTER 2017-10-15 19:18 | Inpatient (IN) | payer OTHER, BC ==
[2017-10-15] MEDS ORDERED: oxyCODONE 10 mg Immediate Release Tab PO PRN (20:29)
[2017-10-16 01:47] VITALS: BMI 23.5
[2017-10-16] MEDS: Levothyroxine 25 MCG TAB PO SCH (05:33)
[2017-10-16] MEDS: Enoxaparin 30 mg Syringe SC SCH (05:33)
[2017-10-16] MEDS: Lactobacillus Acidophilus 500 MU Cap PO SCH ×2 (10:13→17:21)
[2017-10-16] MEDS: Tmp-Smz 800 mg-160 mg DS Tab PO SCH ×2 (10:13→17:21)
[2017-10-16] MEDS: Verapamil 180 mg ER Tab PO SCH (10:13)
[2017-10-16] MEDS: Potassium & Sodium Phosphate PO SCH ×2 (10:13→17:23)
[2017-10-16] MEDS: oxyCODONE 20 mg ER Tab (oxyCONTIN) PO SCH ×2 (11:06→17:48)
[2017-10-16] MEDS: Nystatin 100,000 Units/gm Topical Pow(15 gm) TOP SCH ×2 (14:33→17:24)
--- NOTE | 2017-10-17 04:17 | HP ---
HISTORY OF PRESENT ILLNESS: The patient is 72 years old, who came to emergency room with altered mental status. She had supraventricular tachycardia and her heart rate went up to in 180. She was given verapamil. She was given beta josefina. The patient did make troponin. So because of her positive blood culture for E. coli, she was treated for urosepsis and was on IV fluid, resuscitated with fluids. She was on meropenem and recovered well. She had ech-GI-xilojkwgb RI, probably a demand ischemia. She underwent cardiac cath yesterday, was nonocclusive. Transferred to TCU for rehab and gait training. PAST MEDICAL HISTORY: She has significant past medical history of, 1. Hypogammaglobulinemia. 2. Hypertension. 3. Hyponatremia. 4. Hypothyroidism. 5. Chronic degenerative disk disease, status post diskectomy and spinal fusion. ALLERGIES: SHE IS ALLERGIC TO CIPRO, OMEPRAZOLE AND TETRACYCLINE. SOCIAL HISTORY: She is active smoker. Socially drinks. MEDICATIONS AT HOME: She is on oxycodone immediate release 10 mg four times a day, levothyroxine 25 mcg daily, Pepcid 10 mg daily, atenolol 25 daily, Levaquin, diltiazem 120 daily, Valium 5 mg three times a day, Topamax 75 daily, VESIcare 2 tablets daily, Crestor 10 mg daily, Zofran as needed, Neurontin 600 twice a day. REVIEW OF SYSTEMS: The patient still has generalized weakness and difficulty walking. PHYSICAL EXAMINATION: GENERAL: She is awake, alert, oriented, communicative. VITAL SIGNS: She is afebrile, pulse 78, respirations 18, blood pressure 105/75. LUNGS: Bilateral good airflow. No rhonchi or crackle. HEART: S1 and S2 audible. ABDOMEN: Soft. Nontender. No rebound. No guarding. NEUROLOGICAL: She is awake, alert, oriented and communicative. Moves all extremities. EXTREMITIES: No leg edema. ASSESSMENT: 1. Status post urosepsis. 2. Chronic degenerative disk disease. 3. Vli-QM-fetwpblqf myocardial infarction. Cardiac catheterization negative for occlusive disease. 4. Hypertension. 5. Hyperlipidemia. 6. Hypothyroidism. PLAN: I will order for CBC, CMP in the a.m. Encourage ambulation. We will follow up the patient in the a.m. Dell Darnell MD [facility] # [id number]
[2017-10-17] MEDS: Enoxaparin 30 mg Syringe SC SCH (05:45)
[2017-10-17] MEDS: Levothyroxine 25 MCG TAB PO SCH (05:45)
[2017-10-17 06:59] LABS: BASO # 0.01 K/mm3 (0.0-2.0); BASO % 0.1 % (0.0-3.0); EOS # 0.2 (0.0-0.7); EOS % 2.6 % (1.5-5.0); GRAN # 5.19 (1.4-6.5); HEMOGLOBIN 10.3 g/dL (12.0-16.0); LYMPH # 1.9 (1.2-3.4); LYMPH % 24.5 % (22.0-35.0); MEAN CORPUSCULAR HEMOGLOBIN 30.8 pg (25.0-35.0); MEAN PLATELET VOLUME 9.7 fl (7.0-11.0); MONO # 0.5 (0.1-0.6); MONO % 5.8 % (1.0-6.0); RBC 3.34 10^6/uL (3.5-6.1); RED CELL DISTRIBUTION WIDTH 14.4 % (11.5-14.5); WHITE BLOOD COUNT 7.8 10^3/ul (4.5-11.0)
[2017-10-17 07:35] LABS: ALB/GLOB RATIO 1.1 (1.1-1.8); ALT/SGPT 38 U/L (7-56); AST/SGOT 32 U/L (14-36); BLOOD UREA NITROGEN 22 mg/dL (7-21); CALCIUM 8.6 mg/dL (8.4-10.5); GFR NON-AFRICAN AMERICAN > 60
[2017-10-17] MEDS: Verapamil 180 mg ER Tab PO SCH (10:16)
[2017-10-17] MEDS: Lactobacillus Acidophilus 500 MU Cap PO SCH ×2 (10:16→17:26)
[2017-10-17] MEDS: oxyCODONE 20 mg ER Tab (oxyCONTIN) PO SCH ×2 (10:16→17:27)
[2017-10-17] MEDS: Potassium & Sodium Phosphate PO SCH ×2 (10:17→17:27)
[2017-10-17] MEDS: Tmp-Smz 800 mg-160 mg DS Tab PO SCH ×2 (10:17→17:26)
[2017-10-17] MEDS: Nystatin 100,000 Units/gm Topical Pow(15 gm) TOP SCH ×2 (10:29→17:27)
--- NOTE | 2017-10-17 14:37 | PN ---
DATE: 10/17/2017 SUBJECTIVE: The patient is 72 years old, seen and examined, doing well, finished therapy. Eating and tolerating. No nausea or vomiting. No diarrhea. PHYSICAL EXAMINATION VITAL SIGNS: The patient is afebrile, pulse 64, respirations 18 and blood pressure 118/77. LUNGS: Bilateral good airflow. No rhonchi or crackle. HEART: S1 and S2 audible. ABDOMEN: Soft, nontender. No rebound, no guarding. NEUROLOGICALLY: The patient is awake, alert, oriented, communicative. LABORATORY DATA: Sodium 139, potassium 4.7, chloride 97, CO2 of 24, BUN 22, creatinine 0.9, blood sugar of 94. ASSESSMENT: 1. Status post Escherichia coli sepsis. 2. Hypertension. 3. Hyperlipidemia. 4. Hypokalemia. PLAN: We will monitor electrolyte and CBC intermittently. Continue physical therapy. Dell Darnell MD
[2017-10-18] MEDS: Enoxaparin 30 mg Syringe SC SCH (05:44)
[2017-10-18] MEDS: Levothyroxine 25 MCG TAB PO SCH (05:44)
[2017-10-18] MEDS: oxyCODONE 20 mg ER Tab (oxyCONTIN) PO SCH ×2 (09:42→17:32)
[2017-10-18] MEDS: Lactobacillus Acidophilus 500 MU Cap PO SCH ×2 (09:43→17:26)
[2017-10-18] MEDS: Tmp-Smz 800 mg-160 mg DS Tab PO SCH ×2 (09:43→17:27)
[2017-10-18] MEDS: Nystatin 100,000 Units/gm Topical Pow(15 gm) TOP SCH ×2 (09:44→17:27)
[2017-10-18] MEDS: Potassium & Sodium Phosphate PO SCH ×2 (09:44→17:27)
[2017-10-18] MEDS: Verapamil 180 mg ER Tab PO SCH (09:49)
--- NOTE | 2017-10-18 20:41 | PN ---
DATE: 10/18/2017 SUBJECTIVE: The patient is 72 years old, seen and examined, lying in bed, seems to be comfortable, complained of feeling tired, she states she did lot in therapy. PHYSICAL EXAMINATION VITAL SIGNS: She is afebrile, pulse 79, respirations 20 and blood pressure 109/69. LUNGS: Bilateral fair airflow. No rhonchi or crackle. HEART: S1 and S2 audible. ABDOMEN: Soft, nontender. No rebound, no guarding. NEUROLOGICAL: The patient is awake, alert, oriented, communicative, and ambulates. ASSESSMENT: 1. Status post Escherichia coli sepsis. 2. Hypertension. 3. Hyponatremia. 4. Chronic degenerative disk disease. 5. Neuropathy. 6. Hypogammaglobulinemia. PLAN: We will continue patient on p.o. Bactrim. We will continue her on her rate control medications. Continue physical therapy. We will follow up the patient. Dell Darnell MD
[2017-10-19] MEDS: Enoxaparin 30 mg Syringe SC SCH (05:52)
[2017-10-19] MEDS: Levothyroxine 25 MCG TAB PO SCH (05:52)
[2017-10-19] MEDS: Lactobacillus Acidophilus 500 MU Cap PO SCH ×2 (09:39→17:06)
[2017-10-19] MEDS: Tmp-Smz 800 mg-160 mg DS Tab PO SCH (09:40)
[2017-10-19] MEDS: Nystatin 100,000 Units/gm Topical Pow(15 gm) TOP SCH ×2 (09:41→17:06)
[2017-10-19] MEDS: Verapamil 180 mg ER Tab PO SCH (09:41)
[2017-10-19] MEDS: Potassium & Sodium Phosphate PO SCH ×2 (09:41→17:06)
[2017-10-19] MEDS: oxyCODONE 20 mg ER Tab (oxyCONTIN) PO SCH ×2 (10:20→17:05)
[2017-10-20] MEDS: Enoxaparin 30 mg Syringe SC SCH (05:51)
[2017-10-20] MEDS: Levothyroxine 25 MCG TAB PO SCH (05:51)
[2017-10-20] MEDS: Lactobacillus Acidophilus 500 MU Cap PO SCH ×2 (09:31→18:17)
[2017-10-20] MEDS: oxyCODONE 20 mg ER Tab (oxyCONTIN) PO SCH ×2 (09:33→18:23)
[2017-10-20] MEDS: Potassium & Sodium Phosphate PO SCH ×2 (09:33→18:17)
[2017-10-20] MEDS: Verapamil 180 mg ER Tab PO SCH (09:36)
[2017-10-20] MEDS: Nystatin 100,000 Units/gm Topical Pow(15 gm) TOP SCH ×2 (12:20→19:04)
--- NOTE | 2017-10-20 20:19 | PN ---
DATE: 10/20/2017 HISTORY OF PRESENT ILLNESS: Ms. Haji is a 72-year-old female admitted to the hospital with E. Coli sepsis. She has a history of IgG deficiency. She has been on IgG monthly infusions. She was being weaned and interval was increased to every 10 weeks infusion. She did not have any UTI for past one year since she has been on IgG. Currently recovered from sepsis, participating in physical therapy. She also has sbq-IV-ygjnryylf TN and underwent cardiac catheterization, which were nonocclusive coronary arteries. Feeling better. Participating in physical therapy. No fever. No cough with expectoration. PAST MEDICAL HISTORY: IgG deficiency, hypertension, hyponatremia, hypothyroidism, history of DVT, chronic back pain. ALLERGIES: CIPRO, OMEPRAZOLE AND TETRACYCLINE. SOCIAL HISTORY: Active smoker. Socially drinks. CURRENT MEDICATIONS: Oxycodone, levothyroxine, Pepcid, atenolol 25 daily, Levaquin, diltiazem 120 daily, Valium 5 mg three times a day, Topamax 75 daily, VESIcare tablets daily, Crestor 10 mg daily, Zofran as needed, Neurontin 600 twice a day. REVIEW OF SYSTEMS: As per HPI. Rest of 12-point review of systems reviewed negative. PHYSICAL EXAMINATION: GENERAL: Awake, alert, oriented, communicative. VITAL SIGNS: Stable. Temperature 97.8, heart rate 78 per minute, respiratory rate 18 per minute, blood pressure 105/60. HEENT: Pallor positive. NECK: No lymphadenopathy. CHEST: Air entry present and equal, bilateral. No added sounds. CARDIOVASCULAR: S1, S2 normal. No murmur, no gallop. ABDOMEN: Soft, nontender. No hepatosplenomegaly. EXTREMITY: No edema. ASSESSMENT: Status post urosepsis, chronic degenerative disk disease, vzz-VA-thwjodhoq myocardial infarction, hypertension, hyperlipidemia, hypothyroidism, history of deep vein thrombosis. PLAN: Continue to participate in physical therapy. She is currently off antibiotics treated for urosepsis. Continue Lipitor 10 mg daily, Valium 5 mg t.i.d. p.r.n., Lovenox for prophylaxis 30 mg daily, gabapentin 600 mg p.o. b.i.d., Pepcid 40 mg daily, Synthroid 25 mcg daily, verapamil 180 mg daily. Immunoglobulin G level to be done with the a.m. labs. Merna Elizondo MD
[2017-10-21] MEDS: Levothyroxine 25 MCG TAB PO SCH (05:41)
[2017-10-21] MEDS: Enoxaparin 30 mg Syringe SC SCH (05:41)
[2017-10-21] MEDS: oxyCODONE 20 mg ER Tab (oxyCONTIN) PO SCH ×3 (05:55→17:10)
--- NOTE | 2017-10-21 09:00 | PN ---
DATE: 10/19/2017 SUBJECTIVE: The patient is 72 years old, seen and examined, doing well, participating in therapy. Started to eat better. PHYSICAL EXAMINATION VITAL SIGNS: She is afebrile, pulse 79, respirations 18, blood pressure 108/68. LUNGS: Bilateral good airflow. No rhonchi or crackle. HEART: S1 and S2 audible. ABDOMEN: Soft, nontender. No rebound. No guarding. NEUROLOGIC: She is awake, alert, oriented, communicative. ASSESSMENT: 1. Status post Escherichia coli sepsis. 2. Status post non-ST elevation myocardial infarction, status post cardiac catheterization, unremarkable. 3. Hypernatremia. 4. Hypogammaglobulinemia. 5. Deconditioning, difficulty walking. PLAN: We will continue the patient on current medication. We will continue physical therapy. She is off of antibiotics. We will follow up the patient . Dell Darnell MD
[2017-10-21] MEDS: Lactobacillus Acidophilus 500 MU Cap PO SCH ×2 (09:45→17:11)
[2017-10-21] MEDS: Verapamil 180 mg ER Tab PO SCH (09:46)
[2017-10-21] MEDS: Nystatin 100,000 Units/gm Topical Pow(15 gm) TOP SCH ×2 (09:46→17:17)
[2017-10-21] MEDS: Potassium & Sodium Phosphate PO SCH (09:46)
[2017-10-21 10:56] VITALS: RESP 18
--- NOTE | 2017-10-21 15:23 | PN ---
DATE: 10/21/2017 SUBJECTIVE: Patient is 72 years old. Seen and examined. Doing much better. Participating in Therapy, just came back from Therapy. Complaining of neck pain. Denies any nausea or vomiting. Eating fair. PHYSICAL EXAMINATION: VITAL SIGNS: She is afebrile. Pulse 78, respirations 18, blood pressure 108/62. LUNGS: Bilateral good airflow. No rhonchi or crackle. HEART: S1, S2 audible. ABDOMEN: Soft, nontender. No rebound, no guarding. NEUROLOGIC: She is awake, alert, oriented, communicative, ambulatory. LABORATORY DATA: WBC 7.8, hemoglobin 10, hematocrit 29.4. ASSESSMENT: 1. Status post Escherichia coli sepsis. 2. History of Clostridium difficile colitis. 3. Hypothyroidism. 4. Chronic degenerative disk disease. 5. History of hypogammaglobulinemia. 6. Status post non ST-elevation myocardial infarction, followed by cardiac cath, is unremarkable for any occlusive disease. PLAN: Patient is currently doing well. No nausea or vomiting. No diarrhea. Eating and tolerating. Start her on Mobic for back pain. Continue on verapamil. Discontinue her Neutra-Phos. Lyrica as needed. She has finished her course of antibiotic. Possible discharge plan on Saturday. We will keep her midline, so she can get gamma globulin after discharge. Then, she will follow up with Dr. Elizondo. Dell Darnell MD
[2017-10-21 18:05] VITALS: O2SAT 96
[2017-10-22] MEDS: Enoxaparin 30 mg Syringe SC SCH (06:11)
[2017-10-22] MEDS: Levothyroxine 25 MCG TAB PO SCH (06:12)
[2017-10-22] MEDS: oxyCODONE 20 mg ER Tab (oxyCONTIN) PO SCH ×2 (06:39→17:30)
[2017-10-22] MEDS: Lactobacillus Acidophilus 500 MU Cap PO SCH ×2 (10:03→17:26)
[2017-10-22] MEDS: Verapamil 180 mg ER Tab PO SCH (11:40)
[2017-10-22] MEDS: Nystatin 100,000 Units/gm Topical Pow(15 gm) TOP SCH ×2 (11:40→18:13)
--- NOTE | 2017-10-22 13:11 | PN ---
DATE: 10/22/2017 SUBJECTIVE: The patient is 72 years old, seen and examined, lying in bed. Seems to be doing better. Eating and tolerating, ambulating. Complained of generalized weakness. PHYSICAL EXAMINATION: VITAL SIGNS: She is afebrile, pulse 75, respirations 18, blood pressure 113/74. LUNGS: Bilateral good airflow. No rhonchi or crackle. HEART: S1 and S2 audible. ABDOMEN: Soft. Nontender. No rebound. No guarding. NEUROLOGICAL: The patient is awake, alert, oriented, communicative. LABORATORY EXAM: Her IgG level is 738, it is low normal. ASSESSMENT: 1. Status post Escherichia coli sepsis. 2. Hypogammaglobulinemia. 3. Hyperlipidemia. 4. Hyponatremia. 5. History of Clostridium difficile colitis. 6. Supraventricular tachycardia. 7. Nonocclusive coronaries. 8. Kfo-UT-krjocbyyz myocardial infarction, probably demand ischemia. PLAN: Discussed with Dr. Elizondo. She will arrange for IVIG infusion for tomorrow and she will be discharged from here, will receive IVIG and will be sent home tomorrow. Dell Darnell MD
[2017-10-22 16:41] VITALS: TEMP 98.9
[2017-10-23] MEDS: Enoxaparin 30 mg Syringe SC SCH (05:45)
[2017-10-23] MEDS: oxyCODONE 20 mg ER Tab (oxyCONTIN) PO SCH (05:45)
[2017-10-23] MEDS: Levothyroxine 25 MCG TAB PO SCH (05:52)
[2017-10-23] MEDS: Verapamil 180 mg ER Tab PO SCH (09:57)
[2017-10-23] MEDS: Lactobacillus Acidophilus 500 MU Cap PO SCH (09:58)
[2017-10-23 09:59] VITALS: BP 107/76; PULSE 105
[2017-10-23] MEDS: Nystatin 100,000 Units/gm Topical Pow(15 gm) TOP SCH (09:59)
--- NOTE | 2017-10-24 09:37 | DS ---
HISTORY OF PRESENT ILLNESS: The patient is 72 years old, who came in with altered mental status. She was found to have E. coli sepsis. She was admitted because of her supraventricular tachycardia. She spiked fever with leukocytosis. She was given IV antibiotics. During this septic shock, she was positive for troponin. The patient was evaluated by edging catcher, underwent cardiac cath and had nonocclusive coronaries, was admitted in TCU for rehab, did well. On examination, she is awake, alert, oriented, communicative. PHYSICAL EXAMINATION: GENERAL: She is awake, alert, oriented, communicative. VITAL SIGNS: She is afebrile, pulse 75, respirations 20, blood pressure 107/76. LUNGS: Bilateral fair airflow. No rhonchi or crackle. HEART: S1 and S2 audible. ABDOMEN: Soft. Nontender. No rebound. No guarding. NEUROLOGICAL: The patient is awake, alert, oriented, communicative, ambulatory. ASSESSMENT: 1. Status post Escherichia coli sepsis. 2. Ltl-RL-fhnqcfhts myocardial infarction. 3. Hypertension. 4. Hyponatremia. 5. Hypogammaglobulinemia. PLAN: The patient was discharged today and after discharge, the patient received her gammaglobulin and went home. She was clinically stable. We will follow up in . Dell Darnell MD
== END 2017-10-23 12:11 | disposition home health service (06) | DRG 945 ==
LOC: TRCU 19:18
PROVIDERS: ADMIT Internal Medicine; ATTEND Internal Medicine
PROC: F07Z9FZ Gait Training/Functional Ambulation Treatment using Assistive, Adaptive, Supportive or Protective Equipment (ICD-10-PCS; principal; 2017-10-17)
PROC: F07Z8ZZ Transfer Training Treatment (ICD-10-PCS; 2017-10-17)
PROC: F07L6YZ Therapeutic Exercise Treatment of Musculoskeletal System - Lower Back / Lower Extremity using Other Equipment (ICD-10-PCS; 2017-10-17)
PROC: F08Z1FZ Dressing Techniques Treatment using Assistive, Adaptive, Supportive or Protective Equipment (ICD-10-PCS; 2017-10-17)
PROC: F08Z2ZZ Grooming/Personal Hygiene Treatment (ICD-10-PCS; 2017-10-17)
DX: R53.1 Weakness (principal); A41.51 Sepsis due to Escherichia coli [E. coli]; I21.4 Non-ST elevation (NSTEMI) myocardial infarction; D80.1 Nonfamilial hypogammaglobulinemia; D80.3 Selective deficiency of immunoglobulin G [IgG] subclasses; E87.1 Hypo-osmolality and hyponatremia; I47.1 Supraventricular tachycardia; R26.2 Difficulty in walking, not elsewhere classified; E03.9 Hypothyroidism, unspecified; E78.5 Hyperlipidemia, unspecified; F17.200 Nicotine dependence, unspecified, uncomplicated; I10 Essential (primary) hypertension; G62.9 Polyneuropathy, unspecified; M51.9 Unspecified thoracic, thoracolumbar and lumbosacral intervertebral disc disorder; Z98.1 Arthrodesis status; Z86.19 Personal history of other infectious and parasitic diseases; Z86.718 Personal history of other venous thrombosis and embolism

== ENCOUNTER 2017-12-06 16:56 | Inpatient (IN) | payer MEDICARE, BC ==
[2017-12-06 17:29] VITALS: BMI 20.3
[2017-12-06] MEDS ORDERED: Sodium Chloride 0.9% 1,000 ML IV STA ×2 (17:42→18:32)
--- NOTE | 2017-12-06 17:52 | ED PDOC ---
Arrival/HPI - General Time Seen by Provider: 12/06/17 17:27 Historian: Patient - History of Present Illness Narrative History of Present Illness (Text): 12/06/17 17:47 A 72 year old female, whose past medical history includes hypertension, hyponatremia, SVT, hypogammaglobulinemia, and E. Coli sepsis presents to the emergency department complaining of syncopal episode earlier today. Patient reports for the past two days she has not been eating well and currently feels weak. Patient reports she found herself on the toilet then on the bathroom floor with no recollection of how she got there. Patient notes she hit her head. Patient denies any fever, chills, shortness of breath, chest pain, diarrhea, nausea, vomiting, urinary symptoms, back pain, neck pain, headache, dizziness, or any other complaints. PMD: Dr. Darnell Oncologist: Dr. Elizondo Time/Duration: Other (2 days) Symptom Onset: Gradual Symptom Course: Unchanged Activities at Onset: Light Context: Home Past Medical History - Provider Review Nursing Documentation Reviewed: Yes - Infectious Disease Hx of Infectious Diseases: None - Tetanus Immunization Tetanus Immunization: Up to Date - Cardiac Hx Cardiac Disorders: Yes Hx Hypertension: Yes - Pulmonary Hx Respiratory Disorders: Yes Hx Asthma: Yes - Neurological Hx Neurological Disorder: Yes (headaches) - HEENT Hx HEENT Disorder: Yes (WEARS RX GLASSES for reading) Hx Cataracts: Yes (left eye sx 01/31/16) - Renal Hx Renal Disorder: Yes Hx Pyelonephritis: (pt denies pyelonephritis) - Endocrine/Metabolic Hx Hypothyroidism: Yes - Hematological/Oncological Hx Cancer: No - Integumentary Hx Dermatological Disorder: No - Musculoskeletal/Rheumatological Hx Falls: Yes (2 yrs ago slipped pelvic rim fx) - Gastrointestinal Hx Gastrointestinal Disorders: Yes (GERD,GASTRITIS,BOWEL OBSTRUCTION,H/O C DIFF. APPENDECTOMY,COLITIS) - Genitourinary/Gynecological Hx Reproductive Disorders: No - Psychiatric Hx Psychophysiologic Disorder: No Hx Substance Use: No Other/Comment: pt denies drinking - Surgical History Hx Mastectomy: No - Anesthesia Hx Anesthesia: Yes Hx Anesthesia Reactions: No Hx Malignant Hyperthermia: No - Suicidal Assessment Feels Threatened In Home Enviroment: No Family/Social History - Physician Review Nursing Documentation Reviewed: Yes Family/Social History: Aortic/Thoracic Disection Smoking Status: Never Smoked Hx Alcohol Use: No Hx Substance Use: No Hx Substance Use Treatment: No Allergies/Home Meds Allergies/Adverse Reactions: Allergies ciprofloxacin Allergy (Verified 12/06/17 17:59) RASH esomeprazole Allergy (Verified 12/06/17 17:59) RASH tetracycline Allergy (Verified 12/06/17 17:59) RASH Home Medications: Home Meds Medication Instructions Recorded Confirmed Atenolol [Tenormin] 25 mg PO DAILY 05/25/15 12/06/17 Gabapentin [Neurontin] 600 mg PO BID 05/25/15 12/06/17 Levothyroxine Sodium [Synthroid] 25 mcg PO DAILY 05/25/15 12/06/17 Ondansetron [Zofran Odt] 4 mg PO QID PRN 05/25/15 12/06/17 Rosuvastatin Calcium [Crestor] 10 mg PO DAILY 05/25/15 12/06/17 Solifenacin Succinate [Vesicare] 10 mg PO DAILY 05/25/15 12/06/17 diaZEpam [Valium] 5 mg PO TID PRN 05/25/15 12/06/17 diltiaZEM [Cardizem] 120 mg PO DAILY 05/25/15 12/06/17 Famotidine [Pepcid] 20 mg PO DAILY 06/13/15 12/06/17 oxyCODONE [oxyCONTIN Extended 60 mg PO BID 06/04/16 12/06/17 Release Tab] Zyrtec 1 tab PO PRN PRN 07/03/16 12/06/17 Fluticasone/Vilanterol [Breo 1 puff INH DAILY 12/19/16 12/06/17 Ellipta 100-25 Mcg INH] Lubiprostone [Amitiza] 8 mcg PO BID 12/19/16 12/06/17 Polyethylene Glycol 3350 [Miralax] 17 gm PO PRN PRN 12/19/16 12/06/17 Modafinil [Provigil] 400 mg PO DAILY 05/22/17 12/06/17 Immune Globulin 100 MG/ML [Octagam 40 gm IV Q42D 12/02/17 12/06/17 10%] Tizanidine HCl [Zanaflex Capsule] 4 mg PO TID PRN 12/02/17 12/06/17 oxyCODONE [oxycodone Hydrochloride] 10 mg PO BID PRN 12/02/17 12/06/17 Review of Systems - Physician Review All systems were reviewed & negative as marked: Yes - Review of Systems Constitutional: absent: Fevers, Night Sweats Respiratory: absent: SOB Cardiovascular: absent: Chest Pain Gastrointestinal: Appetite Changes (+not eating well). absent: Diarrhea, Nausea, Vomiting Genitourinary Female: absent: Urine Output Changes Musculoskeletal: absent: Back Pain, Neck Pain Neurological: Other (Weakness). absent: Headache, Dizziness Physical Exam Vital Signs Reviewed: Yes Vital Signs Temp Pulse Resp BP Pulse Ox 12/06/17 17:27 97.6 F 121 H 18 130/89 100 Temperature: Afebrile Blood Pressure: Normal Pulse: Tachycardic Respiratory Rate: Normal Appearance: Positive for: Well-Appearing, Non-Toxic, Comfortable Pain Distress: None Mental Status: Positive for: Alert and Oriented X 3 Finger Stick Blood Glucose: 88 - Systems Exam Head: Present: Tenderness (+tenderness to left forehead), Other (+hematoma on left forehead) Pupils: Present: PERRL Extroacular Muscles: Present: EOMI Conjunctiva: Present: Normal Mouth: Present: Moist Mucous Membranes Neck: Present: Normal Range of Motion Respiratory/Chest: Present: Clear to Auscultation, Good Air Exchange. No: Respiratory Distress, Accessory Muscle Use Cardiovascular: Present: Regular Rate and Rhythm, Normal S1, S2. No: Murmurs Abdomen: No: Tenderness, Distention, Peritoneal Signs Back: Present: Normal Inspection Upper Extremity: Present: Normal Inspection. No: Cyanosis, Edema Lower Extremity: Present: Normal Inspection. No: Edema Neurological: Present: GCS=15, CN II-XII Intact, Speech Normal, Motor Func Grossly Intact, Normal Sensory Function Skin: Present: Warm, Dry, Normal Color. No: Rashes Psychiatric: Present: Alert, Oriented x 3, Normal Insight, Normal Concentration Medical Decision Making ED Course and Treatment: 12/06/17 17:49 Impression: 72 year old female presenting to the emergency department complaining of syncopal episode. Differential Diagnosis included but are not limited to: Syncope r/o intracranial hemorrhage or electrolyte abnormality Plan: -- Head CT without contrast -- EKG -- Labs -- CBC -- COAGs -- Chest X-ray -- IV Fluids -- Urinalysis -- Reassess and disposition Prior Visits: Notes and results from previous visits were reviewed. Progress Notes: 12/06/17 17:49 EKG: Ordered, reviewed, and independently interpreted the EKG. Rate : 81 BPM Rhythm : NSR Interpretation :PACs Orthostatics position. IVF continued. Patient signed out to Dr. Mcadams to f/u CT, labs, UA, reevaluate and disposition. - RAD Interpretation Radiology Orders: 12/06/17 17:41 HEAD W/O CONTRAST [CT] Stat CHEST PORTABLE [RAD] Stat - Medication Orders Current Medication Orders: Sodium Chloride (Sodium Chloride 0.9%) 1,000 mls @ 999 mls/hr IV .Q1H1M STA Stop: 12/06/17 18:42 - Scribe Statement The provider has reviewed the documentation as recorded by the Scribdomitila Ching All medical record entries made by the Scribe were at my direction and personally dictated by me. I have reviewed the chart and agree that the record accurately reflects my personal performance of the history, physical exam, medical decision making, and the department course for this patient. I have also personally directed, reviewed, and agree with the discharge instructions and disposition. Disposition/Present on Arrival - Present on Arrival Any Indicators Present on Arrival: No History of DVT/PE: No History of Uncontrolled Diabetes: No Urinary Catheter: No History Surgical Site Infection Following: None - Disposition Have Diagnosis and Disposition been Completed?: Yes Diagnosis: Syncope, Head injury Disposition Time: 18:39 Condition: FAIR Discharge Instructions (ExitCare): Syncope (ED)
[2017-12-06 18:48] LABS: BASO # 0.01 K/mm3 (0.0-2.0); BASO % 0.3 % (0.0-3.0); EOS % 0.5 % (1.5-5.0); GRAN # 2.45 (1.4-6.5); GRAN % 63.2 % (50.0-68.0); HEMOGLOBIN 11.9 g/dL (12.0-16.0); LYMPH # 1.1 (1.2-3.4); LYMPH % 27.8 % (22.0-35.0); MEAN CELL VOLUME 93.3 fl (80.0-105.0); MEAN CORPUSCULAR HEMOGLOBIN 31.7 pg (25.0-35.0); MEAN PLATELET VOLUME 9.7 fl (7.0-11.0); MONO # 0.3 (0.1-0.6); MONO % 8.2 % (1.0-6.0); RBC 3.75 10^6/uL (3.5-6.1); RED CELL DISTRIBUTION WIDTH 13.9 % (11.5-14.5); WHITE BLOOD COUNT 3.9 10^3/uL (4.5-11.0)
[2017-12-06 18:50] LABS: INR 1.05
[2017-12-06 18:58] LABS: ALB/GLOB RATIO 1.1 (1.1-1.8); ALBUMIN 4.1 g/dL (3.0-4.8); ALT/SGPT 24 U/L (7-56); AST/SGOT 38 U/L (14-36); BLOOD UREA NITROGEN 26 mg/dL (7-21); CALCIUM 8.9 mg/dL (8.4-10.5); GFR NON-AFRICAN AMERICAN 55
[2017-12-06 19:02] LABS: URINE BILIRUBIN SMALL (NEGATIVE); URINE BLOOD LARGE (NEGATIVE); URINE GLUCOSE (UA) NEGATIVE (NEGATIVE); URINE LEUKOCYTE ESTERASE LARGE Leu/uL (NEGATIVE); URINE PROTEIN 100 mg/dL (<30 mg/dL); URINE UROBILINOGEN 0.2 E.U./dL (<1 E.U./dL)
[2017-12-06 19:03] LABS: URINE APPEARANCE CLOUDY (CLEAR); URINE COLOR YELLOW (YELLOW)
[2017-12-06 19:13] LABS: URINE BACTERIA LARGE (NEG); URINE WBC TNTC /hpf (0-6)
[2017-12-06 19:15] LABS: TROPONIN I 0.04 ng/mL
--- NOTE | 2017-12-06 19:21 | ED PDOC ---
Physical Exam Vital Signs Reviewed: Yes Vital Signs Temp Pulse Resp BP Pulse Ox 12/06/17 17:27 97.6 F 121 H 18 130/89 100 Temperature: Afebrile Blood Pressure: Normal Pulse: Tachycardic Respiratory Rate: Normal Appearance: Positive for: Well-Appearing, Non-Toxic, Comfortable Pain Distress: None Mental Status: Positive for: Alert and Oriented X 3 Finger Stick Blood Glucose: 88 Medical Decision Making ED Course and Treatment: 12/06/17 19:00 Patient endorsed to me by Dr. Moise. Patient is a 72 year old male, whose past medical history includes hypertension, hyponatremia, SVT, hypogammaglobulinemia, and E. Coli sepsis, presenting to the emergency department for syncopal episode earlier today. Currently pending CT, labs and Urinalysis. 12/06/17 21:19 Reviewed radiology, Chest X-ray shows no acute processes. CT Head shows: BRAIN No acute intraparenchymal hemorrhage. No mass lesion. No CT evidence for acute territorial infarct. No midline shift or extra-axial collections. VENTRICLES: No hydrocephalus. ORBITS: The orbits are unremarkable. SINUSES AND MASTOIDS: Right ethmoid sinusitis. The paranasal sinuses and mastoid air cells are clear. BONES: No fracture. SOFT TISSUES: Unremarkable. IMPRESSION: No acute intracranial abnormality. Electronically signed on Dec 06, 2017 8:22:16 PM EDT by: Alvaro Hammond M.D., MOE Certified By [facility] Fellowship Trained MRI and CT Specialist 12/06/17 21:[address] Darnell, who is aware and agrees with plan. Accepts pt in to her service. Pt will go to Telemetry observation for syncope and UTI. - Lab Interpretations Lab Results: 12/06/17 18:34 12/06/17 18:34 Lab Results 12/06/17 18:50: Urine Color Yellow, Urine Appearance Cloudy, Urine pH 6.0, Ur Specific Aragon >= 1.030, Urine Protein 100 H, Urine Glucose (UA) Negative, Urine Ketones 15 H, Urine Blood Large H, Urine Nitrate Negative, Urine Bilirubin Small H, Urine Urobilinogen 0.2, Ur Leukocyte Esterase Large H, Urine RBC 2 - 5, Urine WBC Tntc, Ur Epithelial Cells 4 - 5, Urine Bacteria Large 10/26/18 18:34: Sodium 130 L, Potassium 4.1, Chloride 91 L, Carbon Dioxide 26, Anion Gap 17, BUN 26 H, Creatinine 1.0, Est GFR ( Amer) > 60, Est GFR (Non-Af Amer) 55, Random Glucose 85, Calcium 8.9, Magnesium 2.0, Total Bilirubin 0.4, AST 38 H, ALT 24, Alkaline Phosphatase 80, Lactate Dehydrogenase 368, Total Creatine Kinase 107, Troponin I 0.04 D, Total Protein 7.9, Albumin 4.1, Globulin 3.8, Albumin/Globulin Ratio 1.1 12/06/17 18:34: PT 12.0, INR 1.05, APTT 26.0 12/06/17 18:34: WBC 3.9 L D, RBC 3.75, Hgb 11.9 L, Hct 35.0 L, MCV 93.3 D, MCH 31.7, MCHC 34.0, RDW 13.9, Plt Count 150, MPV 9.7, Gran % 63.2, Lymph % (Auto) 27.8, Wilkinson % (Auto) 8.2 H, Eos % (Auto) 0.5 L, Baso % (Auto) 0.3, Gran # 2.45, Lymph # (Auto) 1.1 L, Wilkinson # (Auto) 0.3, Eos # (Auto) 0.0, Baso # (Auto) 0.01 I have reviewed the lab results: Yes - RAD Interpretation Radiology Orders: 12/06/17 17:41 HEAD W/O CONTRAST [CT] Stat CHEST PORTABLE [RAD] Stat College Archivist: ED Physician, Radiologist - Medication Orders Current Medication Orders: Sodium Chloride (Sodium Chloride 0.9%) 1,000 mls @ 999 mls/hr IV .Q1H1M STA Stop: 12/06/17 19:32 Discontinued Medications Sodium Chloride (Sodium Chloride 0.9%) 1,000 mls @ 999 mls/hr IV .Q1H1M STA Stop: 12/06/17 18:42 Last Admin: 12/06/17 18:59 Dose: 999 mls/hr eMAR Start Stop Document 12/06/17 18:59 OCS (Rec: 12/06/17 19:00 OCS [id number]) Intravenous Solution Start Date 12/06/17 Start Time 18:59 End Date 12/06/17 End time 20:00 Total Infusion Time 61 Disposition/Present on Arrival - Present on Arrival Any Indicators Present on Arrival: No History of DVT/PE: No History of Uncontrolled Diabetes: No Urinary Catheter: No History of Decub. Ulcer: No History Surgical Site Infection Following: None - Disposition Have Diagnosis and Disposition been Completed?: Yes Diagnosis: Syncope, Head injury Disposition: HOSPITALIZED Disposition Time: 21:32 Patient Problems: Current Active Problems Problem Status Onset Head injury Acute Syncope Acute Condition: FAIR
[2017-12-06] MEDS ORDERED: cefTRIAXone 1 gm 1 GM/100 ML BAG IV STA (21:15)
[2017-12-06] MEDS ORDERED: POLYETHYLENE GLYCOL 3350 17 GM/Dose PACKET PO PRN ×2 (22:52→22:57)
[2017-12-06] MEDS ORDERED: oxyCODONE 10 mg Immediate Release Tab PO PRN (22:52)
[2017-12-06] MEDS ORDERED: MEROPENEM 500 MG in NS 500 MG/50 ML BAG IVPB SCH (23:00)
--- NOTE | 2017-12-07 05:01 | CT ---
Date of service: 12/06/2017 PROCEDURE: CT HEAD WITHOUT CONTRAST. HISTORY: head injury r/o ICH COMPARISON: 10/08/2017. TECHNIQUE: Axial computed tomography images were obtained through the head/brain without intravenous contrast. Radiation dose: Total exam DLP = 942.06 mGy-cm. This CT exam was performed using one or more of the following dose reduction techniques: Automated exposure control, adjustment of the mA and/or kV according to patient size, and/or use of iterative reconstruction technique. FINDINGS: HEMORRHAGE: No intracranial hemorrhage. BRAIN: There are mild chronic microangiopathic changes. There is no mass, mass effect or abnormal extra-axial fluid collection. There is no territorial infarction. The midline sagittal structures are normal. VENTRICLES: There is mild age-related global parenchymal volume loss and proportionate enlargement of the ventricles and cortical sulci. CALVARIUM: There is no calvarial fracture or extracranial soft tissue swelling. PARANASAL SINUSES: Predominantly clear. MASTOID AIR CELLS: Predominantly clear. OTHER FINDINGS: None. IMPRESSION: No acute intracranial abnormality. A preliminary report was provided by [facility].
--- NOTE | 2017-12-07 05:52 | RAD ---
Date of service: 12/06/2017 HISTORY: syncope COMPARISON: 10/07/2017 FINDINGS: LUNGS: The lungs are well inflated and clear. PLEURA: No pleural effusions or pneumothorax. CARDIOVASCULAR: The heart is normal in size. No aortic atherosclerotic calcification present. OSSEOUS STRUCTURES: Within normal limits for the patient's age. VISUALIZED UPPER ABDOMEN: Normal. OTHER FINDINGS: None. IMPRESSION: No active pulmonary disease.
[2017-12-07] MEDS: Levothyroxine 25 MCG TAB PO SCH (07:00)
[2017-12-07 07:27] LABS: BASO # 0.01 K/mm3 (0.0-2.0); BASO % 0.4 % (0.0-3.0); EOS # 0.1 (0.0-0.7); EOS % 5.2 % (1.5-5.0); GRAN # 1.29 (1.4-6.5); GRAN % 48.1 % (50.0-68.0); HEMOGLOBIN 10.6 g/dL (12.0-16.0); LYMPH # 0.9 (1.2-3.4); LYMPH % 33.2 % (22.0-35.0); MEAN CELL VOLUME 93.7 fl (80.0-105.0); MEAN CORPUSCULAR HGB CONC 34.2 g/dl (31.0-37.0); MEAN PLATELET VOLUME 9.3 fl (7.0-11.0); MONO # 0.4 (0.1-0.6); MONO % 13.1 % (1.0-6.0); RBC 3.31 10^6/uL (3.5-6.1); RED CELL DISTRIBUTION WIDTH 13.8 % (11.5-14.5)
[2017-12-07 07:44] LABS: WHITE BLOOD COUNT 2.7 10^3/uL (4.5-11.0)
[2017-12-07 08:57] LABS: ALBUMIN 3.3 g/dL (3.0-4.8); ALT/SGPT 25 U/L (7-56); AST/SGOT 32 U/L (14-36); BLOOD UREA NITROGEN 18 mg/dL (7-21); CALCIUM 8.4 mg/dL (8.4-10.5); GFR NON-AFRICAN AMERICAN > 60
[2017-12-07] MEDS ORDERED: oxyCODONE 10 mg Immediate Release Tab PO PRN (10:00)
--- NOTE | 2017-12-07 10:21 | CARD ---
APPROVED REPORT Date of service: 12/06/2017 EKG Measurement Heart [id number] <Conclusion> Sinus rhythm with premature atrial complexes LAD RVCD C/W ECG 10/09/17: The QTC is nl. now
--- NOTE | 2017-12-07 10:34 | HP ---
DATE OF EXAM: <> HISTORY OF PRESENT ILLNESS: The patient is 72 years old white female, known to me from multiple previous admissions. I got call earlier in office that the patient woke up around 1:30 and found herself in the toilet floor, last thing she remembers was that she came to the bathroom to use toilet, but after that she does not know what happened. She has vague idea she has been on floor for couple of hours. She called my office and I advised her to go to emergency room for further evaluation. The patient denies any trauma. She was able to ambulate. When she was woke up, she was a little confused, but then she started to feel better having generalized weakness. No history of fever or chills. Does have history of recurrent UTIs as was recently admitted after altered mental status. She was admitted in September and she was found to have E. coli sepsis, but she was treated successfully, transferred to TCU, and after rehab, she was discharged home. PAST MEDICAL HISTORY: Significant for: 1. Chronic degenerative disc disease. 2. Status post discectomy, on chronic pain medication. 3. Hypertension. 4. History of SVT. 5. Hypogammaglobulinemia. 6. Hypothyroidism. ALLERGIES: SHE IS ALLERGIC TO CIPRO, OMEPRAZOLE, AND TETRACYCLINE. SOCIAL HISTORY: She lives by herself. She has a pet. Denies smoking or alcohol use. MEDICATIONS AT HOME: She is on oxycodone 10 mg twice a day and 60 mg twice a day extended release, Cardizem CD 120 mg, diazepam 5 mg 3 times a day, tizanidine, VESIcare. She was on Crestor 10 mg daily, MiraLax as needed, Provigil 400 daily, Amitiza immunoglobulin she gets once a month, levothyroxine 25 mcg daily, gabapentin 600 twice a day, famotidine and atenolol. REVIEW OF SYSTEMS: Significant for generalized weakness. PHYSICAL EXAMINATION: GENERAL: She is awake, alert, oriented and communicative. VITAL SIGNS: She is afebrile, pulse 77, respirations 19, and blood pressure 124/83. LUNGS: Bilateral fair airflow. No rhonchi or crackles. HEART: S1 and S2 audible. ABDOMEN: Soft and nontender. No rebound. No guarding. NEUROLOGICAL: The patient is awake, alert, oriented, and communicative. LABORATORY DATA: WBC 3.9, hemoglobin 11.9, hematocrit 35, and platelets of 150. PT 12 and INR 1.05. Chemistry: Sodium 130, potassium 4, chloride 91, CO2 of 26, BUN 26, creatinine 1, blood sugar of 85. LFTs are within normal limits. Urinalysis shows large blood, small bilirubin, large leukocytes, too numerous to count wbc's. CT scan of the head reportedly negative. X-ray chest is unremarkable. ASSESSMENT: 1. Status post syncope. 2. History of recurrent urinary tract infection recent admission in September secondary to Escherichia coli sepsis. 3. Hypogammaglobulinemia. 4. Hypertension. 5. Hypothyroidism. 6. History of supraventricular tachycardia. 7. Generalized weakness. PLAN: The patient will be admitted, will start her on meropenem. Blood culture and urine culture were sent. Consult Dr. Estrada, consult Dr. Melara for neuro eval. We will resume her medications. We will follow up her CBC and CMP in the a.m. Dell Darnell MD
[2017-12-07] MEDS: oxyCODONE 20 mg ER Tab (oxyCONTIN) PO SCH ×2 (11:02→17:10)
[2017-12-07] MEDS: diltiaZEM 120 mg/24 Hours CD Cap PO SCH (11:02)
[2017-12-07] MEDS: Meropenem IV 1 gm in NS 1 GM/50 ML BAG IVPB SCH ×3 (12:30→22:24)
--- NOTE | 2017-12-07 16:22 | PN ---
DATE: 12/07/2017 SUBJECTIVE: Patient is 72 years old. Seen and examined. Seems to be much more awake, alert, oriented, and communicative. Denies any vomiting. Did feel nauseous and given Zofran. Feels better. PHYSICAL EXAMINATION: VITAL SIGNS: Patient is afebrile. Pulse is 66. respirations 18, blood pressure 135/83. LUNGS: Bilateral fair airflow. No rhonchi or crackle. HEART: S1, S2, audible. ABDOMEN: Soft, nontender, no rebound, no guarding. NEUROLOGIC: She is awake, alert, oriented, and communicative. LABORATORY DATA: WBC 2.7, hemoglobin 10.6, hematocrit 31, and platelets of 118. Chemistry: Sodium 131, potassium 3.8, chloride 98, CO2 of 24. BUN 18, creatinine 0.7. Blood sugar of 81. Urine shows large leukocytes, numerous to count wbc's. Cultures are pending. ASSESSMENT AND PLAN: Status post syncope, could be related to urinary tract infection. Patient has workup done in the past. A CT scan done on , showed no acute intracranial abnormality. I will order for carotid Doppler. Discontinued telemetry. Start physical therapy evaluation. Waiting for blood culture to determine if she needs IV antibiotics according to the identified organism or we can switch it to p.o. She cannot be on observation, need to be admitted for further management. Awaiting urine culture. Dell Darnell MD
--- NOTE | 2017-12-07 23:01 | CON ---
DATE: 12/07/2017 CHIEF COMPLAINT: Status post falling off of a toilet x1 day duration. HISTORY OF PRESENT ILLNESS This is a 72-year-old female known to me from previous admission with past medical history significant for hypertension, hyperlipidemia, GERD, diverticulitis, renal disease, pyelonephritis, urinary tract infection, coronary artery disease, myocardial infarction, E. coli bacteremia. The patient also had immunodeficiency and has been told by Dr. Elizondo. 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 The patient was on the toilet when she had a fall. Admitted for evaluation. Infectious disease consultation is requested to rule out any infectious causes. The patient states that she may have had low-grade fevers. No real chills. No chest pain. There is mild shortness of breath and no abdominal pain, diarrhea or constipation. No bright blood per rectum. REVIEW OF SYSTEMS: Reveals a 12-point review systems is performed. PAST MEDICAL HISTORY: Significant for IgG deficiency even gets monthly IgG immunoglobulin, hypertension, hyperlipidemia, GERD, diverticulitis, renal disease, pyelonephritis, urinary tract infection, anemia, coronary artery disease, myocardial infarction, E. coli bacteremia. The patient did have E. coli bacteremia in 09/2017 and was treated accordingly. PAST SURGICAL HISTORY: Significant for back surgery and appendectomy. ALLERGIES: THE PATIENT IS ALLERGIC TO TETRACYCLINE AND CIPRO. THE TYPE OF ALLERGY IS NOT ENTIRELY CLEAR. SHE IS ALSO ALLERGIC TO OMEPRAZOLE. MEDICATIONS AT HOME: Include the monthly IgG immunoglobulin, atenolol, and Pepcid. PHYSICAL EXAMINATION: GENERAL: She is in bed, answering questions in no acute distress. VITAL SIGNS: With a temperature of 98, blood pressure is 124/80, respiratory rate of 20, and a heart rate of 68; however, it was 121 in the emergency room on admission. HEENT: Unremarkable. NECK: Supple. LUNGS: Decreased breath sounds. HEART: Normal S1 and S2. ABDOMEN: Soft and nontender. No rebound or guarding. LABORATORY EXAMINATION: She has a white count of 3.9 but today is 2.7, hemoglobin of 11, platelets of 118 with 63% granulocytosis. Coagulation is noted. Chemistries reveal a BUN of 26, creatinine of 1. AST is 38. Urinalysis is significant for too numerous to count large bacteria. Review of cultures, E. coli bacteremia in 09/2017. E. coli in the urine. The patient has had E. coli in the past in 2017 also in the urine and also Enterococcus urinary tract infection both in 2016 and 2014. The patient also had E. coli bacteremia in 2014. All the organisms as far with E. coli were sensitive organism. She has not had resistant organisms. Enterococcus also has been sensitive to ampicillin. She did have an episode of Proteus urinary tract infection which is also pansensitive that was in 2013 and another episode of Klebsiella urinary tract infection in 10/2013 also pansensitive organism. The patient had a chest x-ray here yesterday in the emergency room which was reported to be negative. ASSESSMENT AND PLAN: A 72-year-old female with immunodeficiency, hypertension, hyperlipidemia, diverticulitis, renal disease, pyelonephritis, urinary tract infections, multiple Escherichia coli bacteremia, presenting now with leukopenia, tachycardia, positive urinalysis and status post falling off of the toilet and sepsis secondary to the urine as the source. We will start the patient on meropenem at 1 g intravenously every 8 hours. Pending blood cultures and urine cultures. We will make further recommendations upon availability of initial results. The patient had multiple urinary tract infections. We will discuss with Dr. Darnell regarding possible urology evaluation and cystoscopy to rule out any underlying pathology. We will treat her with meropenem. We will follow with you. Isac Estrada MD
[2017-12-08] MEDS: Meropenem IV 1 gm in NS 1 GM/50 ML BAG IVPB SCH ×3 (05:11→22:30)
[2017-12-08] MEDS: Levothyroxine 25 MCG TAB PO SCH (05:12)
[2017-12-08] MEDS: diltiaZEM 120 mg/24 Hours CD Cap PO SCH (09:41)
[2017-12-08] MEDS: oxyCODONE 20 mg ER Tab (oxyCONTIN) PO SCH ×2 (09:44→18:24)
--- NOTE | 2017-12-08 11:02 | PN ---
DATE: 12/08/2017 SUBJECTIVE: Patient has no complaints of any chest pain. No shortness of breath. No headache. No dizziness. PHYSICAL EXAMINATION: VITAL SIGNS: Temperature is 99.3, pulse of 67, blood pressure is 131/89, respirations 19. GENERAL: The patient is lying in bed, flat, comfortable. HEENT: No oral lesion. Anicteric sclerae. Moist mucosa. NECK: No JVD, adenopathy, or thyromegaly. CARDIOVASCULAR: S1 and S2, regular. No murmurs, rubs, or gallops. LUNGS: Clear to auscultation bilaterally. No wheeze, rales, or rhonchi. ABDOMEN: Bowel sounds are positive, soft, nontender and nondistended. EXTREMITIES: No cyanosis, clubbing or edema. LABORATORY DATA: White count of 2.7, hemoglobin 10.6, creatinine is 0.7. Sodium is 131. ASSESSMENT: 1. Sepsis. 2. Dyslipidemia. 3. Hypothyroidism. 4. Osteoarthritis. PLAN: Patient is currently admitted to the hospital. She is on meropenem for antibiotics. SHE HAS ALLERGY TO CIPRO AND TETRACYCLINE. She is going to continue with Neurontin for neuropathy. She is on oxycodone for her pain. She is on Synthroid for hypothyroidism. She is going to continue with Valium for anxiety. She had a carotid ultrasound that is ordered and pending. She is going to get physical therapy. Wilfrido Weiner MD
[2017-12-08] MEDS: Vancomycin 1gm in NS 250ml 1 GM/250 ML BAG IVPB SCH ×2 (12:15→23:10)
--- NOTE | 2017-12-08 12:25 | PN ---
DATE: 12/08/2017 SUBJECTIVE: The patient is in bed, in no acute distress. PHYSICAL EXAMINATION: VITAL SIGNS: Temperature is 98, blood pressure is 135/80, respiratory rate of 18, heart rate of 70. HEENT: Unremarkable. NECK: Supple. LUNGS: Have decreased breath sounds. HEART: Normal S1, S2. ABDOMINAL: Soft, nontender. LABORATORY EXAMINATION: Reveals a white count of 2.7, hemoglobin is noted and platelets of 118. Chemistries are noted. Urinalysis is reviewed. Microbiology reveals a gram-positive cocci in the blood. Urine culture is no growth. The urinalysis does show too numerous to count wbc's with large bacteria. Dr. Weiner's note is reviewed from this morning. He is covering for Dr. Darnell. ASSESSMENT AND PLAN: A 72-year-old female in the IgG immunodeficiency with immunoglobulin once monthly and hypertension, hyperlipidemia, diverticulitis, renal disease, pyelonephritis, urinary tract infections with multiple episodes of Escherichia coli bacteremia now presenting with leukopenia, tachycardia, positive urinalysis and positive urine culture, #1 is sepsis secondary to gram-positive cocci in the urine, currently on day #2 of meropenem. We will add vancomycin pending identification and sensitivity of gram-positive cocci in the urine. Isac Estrada MD
--- NOTE | 2017-12-08 15:44 | CON ---
DATE OF CONSULTATION: 12/08/2017 CHIEF COMPLAINT: Syncope. HISTORY OF PRESENT ILLNESS: This is a 72-year-old woman with a history of IgG immunodeficiency with immunoglobulin once a month, hypertension, hyperlipidemia, diverticulosis, chronic renal insufficiency, history of pyelonephritis, urinary tract infections, multiple episodes of E. coli bacteremia, now presented to the hospital with a syncopal event in addition to leukopenia, tachycardia, positive urinalysis, and positive urine culture secondary to Gram-positive cocci in the urine, on meropenem as well as vancomycin. ID is on board. She admits that she has passing out episodes when going to the restroom and are sudden and had low sodium when she came in and was mildly dehydrated initially. Her orthostatics are currently negative. Likely, her syncope was also vasovagal related from neurocardiogenic syncope. We will continue to monitor her heart rate. PAST MEDICAL HISTORY: As above. FAMILY HISTORY: Noncontributory. SOCIAL HISTORY: No illicit drug use, smoking or EtOH abuse. ALLERGIES: TETRACYCLINE, CIPROFLOXACIN, AND ESOMEPRAZOLE. REVIEW OF SYSTEMS: A 14-point review of systems is negative except as per the HPI. PHYSICAL EXAMINATION: VITAL SIGNS: Temperature 97.9, pulse rate 70, blood pressure 135/80, respiratory rate 19, oxygen saturation 97% on room air. GENERAL: The patient is sitting up in bed, in no acute distress. HEENT: Atraumatic, normocephalic. PERRLA. Extraocular muscles intact. NECK: Supple. No JVD. No adenopathy noted. LUNGS: Clear to auscultation. No adventitious sounds. HEART: S1 and S2, normal rate and rhythm. No murmurs, rubs or gallops. ABDOMEN: Soft, nontender and nondistended. Bowel sounds are present. EXTREMITIES: No clubbing. No cyanosis. Peripheral pulses 2+ felt bilaterally. NEUROLOGIC: The patient is alert and oriented to person, place, month, and year. Speech is fluent without any errors. Cranial nerves II through XII are intact. Motor: Moves all extremities equally. Toes are downgoing bilaterally. Sensory: Decreased light touch and pinprick up to the calves bilaterally. Decreased vibration to the toes. DTRs are 2+ throughout and 1 at both knees and ankles. Coordination: Sycbym-ol-rrbz intact. Gait is highly wide based. Romberg negative. LABORATORY DATA: No new labs are done today. ASSESSMENT AND PLAN: This is a 72-year-old woman with a history of IgG immunodeficiency with immunoglobulin once monthly; hypertension; hyperlipidemia; migraine headaches; history of neuropathy, on Neurontin; history of multiple urinary tract infections as well as multiple episodes of E. coli bacteremia, now presented with a syncopal episode, which is likely vasovagal related/neurocardiogenic syncope, unlikely seizure. In addition, had found to have leukopenia, tachycardia, positive urinalysis, Gram-positive cocci in the urine, currently on meropenem and vancomycin as per ID. At this time, she is doing much better with no further syncopal episodes. At this time, I recommended: 1. Continue Holter monitor. 2. Repeat orthostatics. 3. Frequent hydration throughout the day. 4. Continue on Neurontin for neuropathic relief. At this time, she is clinically stable. Thank you for this consult. Santos Melara MD
[2017-12-08 17:06] VITALS: RESP 20
[2017-12-09] MEDS: Meropenem IV 1 gm in NS 1 GM/50 ML BAG IVPB SCH (05:40)
[2017-12-09] MEDS: Levothyroxine 25 MCG TAB PO SCH (05:42)
[2017-12-09 07:30] VITALS: BP 158/90; PULSE 65; TEMP 98; O2SAT 97
[2017-12-09] MEDS: oxyCODONE 20 mg ER Tab (oxyCONTIN) PO SCH (10:09)
[2017-12-09] MEDS: diltiaZEM 120 mg/24 Hours CD Cap PO SCH (10:09)
--- NOTE | 2017-12-09 10:40 | US ---
PROCEDURE: Bilateral carotid artery duplex ultrasound HISTORY: Carotid stenosis syncope PHYSICIAN(S): Nick Blake MD. TECHNIQUE: Duplex sonography and color-flow Doppler were used to evaluate the carotid bifurcations and limited segments of the vertebral arteries bilaterally. The exam is somewhat limited by tortuous vessels. FINDINGS: There is mild smooth heterogeneous plaque noted at the carotid bifurcations bilaterally. The peak systolic velocity in the proximal right internal carotid artery is 59 cm/sec. This corresponds to a 20 to 39% proximal right ICA stenosis. Normal systolic velocities are noted in the proximal right external carotid artery. There is antegrade flow in the right vertebral artery. The peak systolic velocity in the proximal left internal carotid artery is 75 cm/sec. This corresponds to a 20 to 39% proximal left ICA stenosis. Normal systolic velocities are noted in the proximal left external carotid artery. There is antegrade flow in the dominant left vertebral artery. IMPRESSION: 1. Bilateral 20-39% proximal ICA stenoses. 2. Antegrade flow in both vertebral arteries.
[2017-12-09 11:58] LABS: HEMOGLOBIN 11.9 g/dL (12.0-16.0); MEAN CELL VOLUME 93.6 fl (80.0-105.0); MEAN CORPUSCULAR HEMOGLOBIN 31.8 pg (25.0-35.0); MEAN PLATELET VOLUME 9.5 fl (7.0-11.0); RBC 3.74 10^6/uL (3.5-6.1); RED CELL DISTRIBUTION WIDTH 13.7 % (11.5-14.5)
[2017-12-09 12:05] LABS: WHITE BLOOD COUNT 2.8 10^3/uL (4.5-11.0)
[2017-12-09 12:29] LABS: ALBUMIN 3.6 g/dL (3.0-4.8); ALT/SGPT 17 U/L (7-56); AST/SGOT 29 U/L (14-36); BLOOD UREA NITROGEN 12 mg/dL (7-21); CALCIUM 8.5 mg/dL (8.4-10.5); GFR NON-AFRICAN AMERICAN > 60
--- NOTE | 2017-12-09 14:41 | PN ---
DATE: 12/09/2017 SUBJECTIVE: The patient is in bed and seen earlier today, in no acute distress. No fevers and no chills. PHYSICAL EXAMINATION: VITAL SIGNS: Temperature is 98, blood pressure is 158/90, respiratory rate of 20 and heart rate of 63. HEENT: Unremarkable. NECK: Supple. LUNGS: Lungs have decreased breath sounds. HEART: Normal S1 and S2. ABDOMEN: Soft and nontender. LABORATORY EXAMINATION: Reveals the blood cultures are negative. Urine culture is ampicillin-sensitive Enterococcus faecalis and sensitive to vancomycin. MEDICATIONS: Review of orders reveals the patient to be on meropenem and vancomycin. ASSESSMENT AND PLAN: This is a 72-year-old female with a history of IgG immunodeficiency on immunoglobulin, received immunoglobulin once monthly, hypertension, hyperlipidemia, diverticulitis, renal disease, pyelonephritis, urinary tract infections, multiple episodes of Escherichia colitis bacteremia, presenting with leukopenia, tachycardia, positive urinalysis, #1 is sepsis with Enterococcus faecalis, urine as the source. We will discontinue the vancomycin and meropenem and complete with p.o. ampicillin or amoxicillin for better bioavailability x7 days. Isac Estrada MD
--- NOTE | 2017-12-10 04:17 | DS ---
HISTORY OF PRESENT ILLNESS: The patient is a 72-year-old, seen and examined. The patient was admitted after she passed out at home. She was on the floor for few hours until she regained consciousness, and she called ambulance and was brought to the emergency room. She was found to have Enterococcus faecalis UTIs, sensitive to ampicillin. The patient was evaluated by ID. Initially, she was given meropenem; once we planned her culture , her meropenem was discontinued and started on amoxicillin. Doing well on examination. She is awake, alert, oriented, and communicative. PHYSICAL EXAMINATION: VITAL SIGNS: She is afebrile, pulse 65, respiration 20, and blood pressure 158/90. LUNGS: Bilateral fair airflow. No rhonchi or crackle. HEART: S1 and S2 audible. ABDOMEN: Soft, nontender, no rebound, no guarding. NEUROLOGIC: She is awake, alert, oriented, and communicative. LABORATORY DATA: WBC is 2.8, hemoglobin 11.9, hematocrit 35, and platelets 113. Chemistries: Sodium 133, potassium 4.6, chloride 99, CO2 of 27, BUN 12, creatinine 0.6, and blood sugar of 105. ASSESSMENT AND PLAN: 1. Syncope. 2. Enterococcus faecalis urinary tract infection. 3. Hyponatremia. 4. Leukopenia. 5. Thrombocytopenia. 6. History of hypertension. 7. Chronic back pain. PLAN: The patient is being discharged home on amoxicillin 500 t.i.d. for a week. She will follow up in office next week and will follow up her CBC and CMP. She will follow with Dr. Elizondo. Dell Darnell MD
--- NOTE | 2017-12-13 10:30 | PQF ---
PROVIDER RESPONSE TEXT: Confirmed treated and resolved REVIEWER QUERY TEXT: Conflicting Documentation Clarification A single mention or documentation of multiple diagnoses for the same clinical presentation appears in the record. Please clarify the diagnosis/diagnoses. Please also document if the condition is: -- Confirmed and current -- Confirmed, treated and resolved -- Ruled out -- Other, please specify The patient's Clinical Indicators include: Sepsis is documented by ID foreign legal consultant in his notes. You do not document sepsis in your notes or on yo ur discharge summary. Do you agree, disagree, other, undetermined with sepsis for this patient? If yo u agree, was sepsis present on admission? Thank you. Query created by: Genoveva Herbert on 12/11/2017 11:28 AM Electronically signed by: Dell Darnell MD 12/13/2017 10:27 AM
== END 2017-12-09 17:44 | disposition home or self-care (01) | DRG 872 ==
LOC: ED 16:56 → ERH 21:32 → 2RSO 12-07 00:14 → OBSVTOIN 12-07 14:58 → 3RSO 12-07 18:32
PROVIDERS: ADMIT Internal Medicine; ATTEND Internal Medicine
DX: A41.9 Sepsis, unspecified organism (principal); N39.0 Urinary tract infection, site not specified; D80.3 Selective deficiency of immunoglobulin G [IgG] subclasses; D80.1 Nonfamilial hypogammaglobulinemia; E87.1 Hypo-osmolality and hyponatremia; N12 Tubulo-interstitial nephritis, not specified as acute or chronic; E86.0 Dehydration; S00.83XA Contusion of other part of head, initial encounter; W18.30XA Fall on same level, unspecified, initial encounter; Z91.81 History of falling; Z79.899 Other long term (current) drug therapy; R55 Syncope and collapse; S09.90XA Unspecified injury of head, initial encounter; Z87.440 Personal history of urinary (tract) infections; E78.5 Hyperlipidemia, unspecified; R00.0 Tachycardia, unspecified; E03.9 Hypothyroidism, unspecified; M19.90 Unspecified osteoarthritis, unspecified site; G62.9 Polyneuropathy, unspecified; D69.6 Thrombocytopenia, unspecified; G89.29 Other chronic pain; I12.9 Hypertensive chronic kidney disease with stage 1 through stage 4 chronic kidney disease, or unspecified chronic kidney disease; I25.10 Atherosclerotic heart disease of native coronary artery without angina pectoris; B95.2 Enterococcus as the cause of diseases classified elsewhere; I25.2 Old myocardial infarction; Z87.09 Personal history of other diseases of the respiratory system; K21.9 Gastro-esophageal reflux disease without esophagitis; N18.9 Chronic kidney disease, unspecified; X58.XXXA Exposure to other specified factors, initial encounter; Z79.890 Hormone replacement therapy; M51.36 Other intervertebral disc degeneration, lumbar region; Z88.1 Allergy status to other antibiotic agents; Z88.8 Allergy status to other drugs, medicaments and biological substances

== ENCOUNTER 2018-07-14 13:19 | Emergency (ER) | payer MEDICARE, BC ==
[2018-07-14 13:29] VITALS: BMI 24.0
--- NOTE | 2018-07-14 13:43 | ED PDOC ---
Arrival/HPI - General Chief Complaint: Palpitations Time Seen by Provider: 07/14/18 13:21 Historian: Patient - History of Present Illness Narrative History of Present Illness (Text): 07/14/18 13:36 Patient is a 73 year old female whose past medical history includes asthma, who was sent to the ED by anesthesiologist for tachycardia evaluation. Patient reports that she was scheduled for an endoscopy today to evaluate her reduced appetite, which was subsequently canceled after the anesthesiologist noticed that she was tachycardic. Patient notes that she has fasted since last night. She denies feeling anxious about the endoscopy. Patient also denies palpitations, chest pain, or any other complaints. PCP: Lead Pastor: . Time/Duration: Prior to Arrival Symptom Onset: Sudden Associated Symptoms (Text): 07/14/18 14:10 Sent to the emergency department from the same day surgery by anesthesia who found patient had sinus tachycardia prior to her routine upper endoscopy. She denies chest pain palpitations or dyspnea. No fever or chills. She has been n.p.o. all day. No anxiety or nervousness. Past Medical History - Provider Review Nursing Documentation Reviewed: Yes - Infectious Disease Hx of Infectious Diseases: None - Tetanus Immunization Tetanus Immunization: Up to Date - Cardiac Hx Pacemaker: No - Pulmonary Hx Respiratory Disorders: Yes Hx Asthma: Yes - Neurological Hx Paralysis: No - HEENT Hx HEENT Disorder: Yes (WEARS RX GLASSES for reading) Hx Cataracts: Yes (left eye sx 01/31/16) - Renal Hx Renal Disorder: Yes Hx Pyelonephritis: (pt denies pyelonephritis) - Endocrine/Metabolic Hx Hypothyroidism: Yes - Hematological/Oncological Hx Blood Transfusions: No Hx Blood Transfusion Reaction: No - Integumentary Hx Dermatological Disorder: No - Musculoskeletal/Rheumatological Hx Musculoskeletal Disorders: Yes - Gastrointestinal Hx Gastrointestinal Disorders: Yes (GERD,GASTRITIS,BOWEL OBSTRUCTION,H/O C DIFF. APPENDECTOMY,COLITIS) - Genitourinary/Gynecological Hx Genitourinary Disorders: No (PYELONEPHRITIS) Hx Urinary Tract Infection: Yes - Psychiatric Hx Substance Use: Yes (MEDICAL MARJIUANA) - Surgical History Hx Mastectomy: No Hx Orthopedic Surgery: Yes (BACK SURGERY) - Anesthesia Hx Anesthesia Reactions: No Hx Malignant Hyperthermia: No - Suicidal Assessment Feels Threatened In Home Enviroment: No Family/Social History - Physician Review Nursing Documentation Reviewed: Yes Family/Social History: No Known Family HX Smoking Status: Never Smoked Hx Alcohol Use: No Hx Substance Use: Yes (MEDICAL KARY) Hx Substance Use Treatment: No Allergies/Home Meds Allergies/Adverse Reactions: Allergies ciprofloxacin Allergy (Verified 12/06/17 17:59) RASH esomeprazole Allergy (Verified 12/06/17 17:59) RASH tetracycline Allergy (Verified 12/06/17 17:59) RASH Home Medications: Home Meds Medication Instructions Recorded Confirmed Atenolol [Tenormin] 25 mg PO DIN 05/25/15 07/14/18 Gabapentin [Neurontin] 600 mg PO BID 05/25/15 07/14/18 Levothyroxine Sodium [Synthroid] 25 mcg PO ACB 05/25/15 07/14/18 Ondansetron [Zofran Odt] 4 mg PO QID PRN 05/25/15 07/14/18 Rosuvastatin Calcium [Crestor] 10 mg PO DIN 05/25/15 07/14/18 Solifenacin Succinate [Vesicare] 10 mg PO DAILY 05/25/15 07/14/18 diaZEpam [Valium] 5 mg PO TID PRN 05/25/15 07/14/18 diltiaZEM [Cardizem] 120 mg PO DAILY 05/25/15 07/14/18 Famotidine [Pepcid] 20 mg PO QPM 06/13/15 07/14/18 oxyCODONE [oxyCONTIN Extended 30 mg PO BID 06/04/16 07/14/18 Release Tab] Zyrtec 1 tab PO PRN PRN 07/03/16 07/14/18 Fluticasone/Vilanterol [Breo 1 puff INH DAILY 12/19/16 07/14/18 Ellipta 100-25 Mcg INH] Lubiprostone [Amitiza] 24 mcg PO BID 12/19/16 07/14/18 Polyethylene Glycol 3350 [Miralax] 17 gm PO PRN PRN 12/19/16 07/14/18 Modafinil [Provigil] 200 mg PO DAILY 05/22/17 07/14/18 Immune Globulin 100 MG/ML [Octagam 40 gm IV Q42D 12/02/17 07/09/18 10%] oxyCODONE [oxyCODONE Immediate 10 mg PO QID 12/02/17 07/14/18 Release Tab] Acetaminophen/Butalbital/Caf 2 tab PO BID PRN 07/09/18 07/14/18 [Fioricet] Meloxicam [Mobic] 7.5 mg PO DAILY 07/09/18 07/14/18 Review of Systems - Physician Review All systems were reviewed & negative as marked: Yes - Review of Systems Constitutional: absent: Fatigue, Fevers Respiratory: absent: SOB, Cough, Wheezing Cardiovascular: absent: Chest Pain, Palpitations Gastrointestinal: absent: Abdominal Pain, Nausea, Vomiting Neurological: absent: Headache, Dizziness, Focal Weakness Physical Exam Temperature: Afebrile Blood Pressure: Normal Pulse: Regular Respiratory Rate: Normal Appearance: Positive for: Well-Appearing, Non-Toxic, Comfortable Pain Distress: None Mental Status: Positive for: Alert and Oriented X 3 - Systems Exam Head: Present: Atraumatic, Normocephalic Pupils: Present: PERRL Extroacular Muscles: Present: EOMI Conjunctiva: Present: Normal Mouth: Present: Moist Mucous Membranes Pharnyx: No: ERYTHEMA, EXUDATE, TONSILS ENLARGED Neck: Present: Normal Range of Motion Respiratory/Chest: Present: Clear to Auscultation, Good Air Exchange. No: Respiratory Distress, Accessory Muscle Use Cardiovascular: Present: Regular Rate and Rhythm, Normal S1, S2. No: Murmurs Abdomen: No: Tenderness, Distention, Peritoneal Signs Back: Present: Normal Inspection Upper Extremity: Present: Normal Inspection. No: Cyanosis, Edema Lower Extremity: Present: Normal Inspection. No: Edema Neurological: Present: GCS=15, CN II-XII Intact, Speech Normal, Motor Func Grossly Intact Skin: Present: Warm, Dry, Normal Color. No: Rashes Psychiatric: Present: Alert, Oriented x 3, Normal Insight, Normal Concentration Medical Decision Making ED Course and Treatment: 07/14/18 13:45 Impression: 73 year old female who was sent to the ED by anesthesiologist for tachycardia evaluation. Plan: -- EKG -- Cardiac enzymes -- Blood work -- Labs -- Reassess and disposition Prior Visits: Notes and results from previous visits were reviewed. Progress Notes: 07/14/18 14:12 EKG shows normal sinus rhythm rate approximately 70 with an incomplete right bundle branch block and no acute ST or T wave changes with a sinus arrhythmia 07/14/18 14:41 Work-up is unremarkable. She is always hyponatremic and anemic. She will be discharged home. She will need to reschedule her endoscopy. - Lab Interpretations I have reviewed the lab results: Yes - EKG Interpretation Interpreted by ED Physician: Yes Type: 12 lead EKG - Scribe Statement The provider has reviewed the documentation as recorded by the Scribe Andrea Kadycyn Provider Scribe Attestation: All medical record entries made by the Scribe were at my direction and personally dictated by me. I have reviewed the chart and agree that the record accurately reflects my personal performance of the history, physical exam, medical decision making, and the department course for this patient. I have also personally directed, reviewed, and agree with the discharge instructions and disposition. Disposition/Present on Arrival - Present on Arrival Any Indicators Present on Arrival: No History of DVT/PE: No History of Uncontrolled Diabetes: No Urinary Catheter: No History of Decub. Ulcer: No History Surgical Site Infection Following: None - Disposition Have Diagnosis and Disposition been Completed?: Yes Diagnosis: Tachycardia, Anemia, Hyponatremia Disposition: HOME/ ROUTINE Disposition Time: 14:42 Patient Plan: Discharge Condition: GOOD Discharge Instructions (ExitCare): Tachycardia, Hyponatremia, Anemia of Chronic Disease (DC) Additional Instructions: Call to reschedule your endoscopy. Follow-up in the ER as needed. Follow-up with PMD. Referrals: Dell Darnell MD [Primary Care Provider] - Follow up with primary Forms: [employer] (Armenian)
[2018-07-14 13:52] VITALS: RESP 18; TEMP 98.3
[2018-07-14 14:18] LABS: BASO # 0.01 K/mm3 (0.0-2.0); BASO % 0.2 % (0.0-3.0); EOS # 0.4 (0.0-0.7); EOS % 9.3 % (1.5-5.0); HEMOGLOBIN 11.1 g/dL (12.0-16.0); LYMPH # 1.8 (1.2-3.4); LYMPH % 38.9 % (22.0-35.0); MEAN CELL VOLUME 93.2 fl (80.0-105.0); MEAN CORPUSCULAR HEMOGLOBIN 31.4 pg (25.0-35.0); MEAN CORPUSCULAR HGB CONC 33.7 g/dl (31.0-37.0); MEAN PLATELET VOLUME 8.9 fl (7.0-11.0); MONO # 0.2 (0.1-0.6); MONO % 4.8 % (1.0-6.0); RBC 3.53 10^6/uL (3.5-6.1); RED CELL DISTRIBUTION WIDTH 13.4 % (11.5-14.5); WHITE BLOOD COUNT 4.6 10^3/uL (4.5-11.0)
[2018-07-14 14:21] LABS: ALB/GLOB RATIO 1.3 (1.1-1.8); ALBUMIN 3.9 g/dL (3.0-4.8); ALT/SGPT 29 U/L (7-56); AST/SGOT 25 U/L (14-36); BLOOD UREA NITROGEN 29 mg/dL (7-21); CALCIUM 9.2 mg/dL (8.4-10.5); GFR NON-AFRICAN AMERICAN > 60
[2018-07-14 14:32] LABS: TROPONIN I < 0.01 ng/mL
[2018-07-14 15:53] VITALS: BP 115/73; PULSE 72; O2SAT 100
--- NOTE | 2018-07-14 17:02 | CARD ---
APPROVED REPORT Date of service: 07/14/2018 EKG Measurement Heart [id number] <Conclusion> Normal sinus rhythm with sinus arrhythmia Incomplete right bundle branch block Borderline ECG
== END 2018-07-14 15:53 | disposition home or self-care (01) ==
LOC: ED 13:19
DX: R00.0 Tachycardia, unspecified (principal); D64.9 Anemia, unspecified; E87.1 Hypo-osmolality and hyponatremia; E03.9 Hypothyroidism, unspecified